=== PATIENT | male | born 1995 | race Caucasian/White ===

== ENCOUNTER 2023-09-07 14:25 | Emergency (ER) | payer BC, SELFPAY ==
[2023-09-07 14:31] VITALS: BP 118/93; PULSE 78; RESP 20; TEMP 36.6; O2SAT 100; BMI 31.2
--- NOTE | 2023-09-07 15:13 | ED.BACK1 ---
HPI - Back Pain/Injury General Chief Complaint: Back Pain/Injury Stated Complaint: BACK INJURY Time Seen by Provider: 09/07/23 15:12 Source: patient and family Mode of arrival: Wheelchair History of Present Illness HPI Narrative: patient's here as his with complaint of back pain. It feels like a spasm/charley horses back. He is currently healthy and has never had problems with his back. 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 Does not have radiculopathy type symptoms. There is no paresis paresthesias tingling or numbness. Is no fever shakes or chills. No urinary or stool problems or symptoms suggestive of cauda equina. He is not known to have ongoing or recurring back problems at all. He does not have a primary family doctor but his 's family doctor is Dr. Montes. Related Data Home Medications Medication Instructions Recorded Confirmed No Known Home Medications 09/07/23 09/07/23 Allergies Allergy/AdvReac Type Severity Reaction Status Date / Time No Known Drug Allergies Allergy Verified 09/07/23 14:38 Exam Narrative Exam Narrative: awake alert laying supine but has clear muscle spasm when he attempts to raise his legs or sit up. He's pleasant oriented ?3. He took some ibuprofen before coming to the hospital. Problem focused examination Examination of reflexes are symmetrical at patella and Achilles. Extensor hallucis longus function is strong bilaterally. He has muscle spasm with straight leg raising test but no radiculopathy type symptoms. Neurovascular examination of the distal limb is normal. Is not having abdominal pain or pain in the renal area. Constitutional Vital Signs, click to edit/add: Last Vital Signs Temp 98 F 09/07/23 14:31 Pulse 78 09/07/23 14:31 Resp 20 09/07/23 14:31 BP 118/93 H 09/07/23 14:31 Pulse Ox 100 09/07/23 14:31 O2 Del Method Room Air 09/07/23 14:31 Course Vital Signs Vital signs: Vital Signs Temperature 98 F 09/07/23 14:31 Pulse Rate 78 09/07/23 14:31 Respiratory Rate 20 09/07/23 14:31 Blood Pressure 118/93 H 09/07/23 14:31 Pulse Oximetry 100 09/07/23 14:31 Oxygen Delivery Method Room Air 09/07/23 14:31 Temperature 98 F 09/07/23 14:31 Pulse Rate 78 09/07/23 14:31 Respiratory Rate 20 09/07/23 14:31 Blood Pressure 118/93 H 09/07/23 14:31 Pulse Oximetry 100 09/07/23 14:31 Oxygen Delivery Method Room Air 09/07/23 14:31 MDM - Back Pain/Injury MDM Narrative Medical decision making narrative: patient appears to have symptoms consistent with lumbosacral strain. Do not believe diagnostic testing images or urine needs to be done at this time. The follow-up with a primary care doctor. We'll recommend muscle relaxants alternating hot compresses for thirty minutes sevveral times a day and NSAIDs Discharge Plan Discharge Chief Complaint: Back Pain/Injury Clinical Impression: Strain of lumbar region Patient Disposition: Home, Self-Care Time of Disposition Decision: 15:27 Prescriptions / Home Meds: No Action No Known Home Medications Additional Instructions: Robaxin/Anaprox/warm compresses thirty minutes only three or four times a day/PCP follow-up Stand Alone Forms: Portal Instructions Referrals: Physician,Non-Staff, MD [Primary Care Provider] - 1 week
== END 2023-09-07 15:44 | disposition home or self-care (01) ==
PROVIDERS: Emergency Provider Emergency Medicine Emergency Medical Services
DX: S39.012A Strain of muscle, fascia and tendon of lower back, initial encounter (principal); X50.9XXA Other and unspecified overexertion or strenuous movements or postures, initial encounter
CPT/HCPCS: 99283

== ENCOUNTER 2024-03-07 15:30 | Outpatient (OUT) | payer BC, SELFPAY | END 2024-03-07 15:31 | disposition home or self-care (01) | LOC: CARD 15:31 | PROVIDERS: PCP Family Medicine; Visit Provider Family Medicine | DX: R00.2 Palpitations (principal) | CPT/HCPCS: 93242 ==

== ENCOUNTER 2024-04-11 10:53 | Outpatient (OUT) | payer BC, SELFPAY ==
--- OUTSIDE RECORDS SUMMARY | 2024-04-08 15:33 | XMS_ITS ---
Patient Summarization (C-CDA 2.1 CCD) Created on: April 08, 2024 Dustin Harden : 1995 Sex: Male Author Organization Sample organization Care Team Providers Care Contact Center Rep Name Role Phone PAY, DR HOLT Admitting Unavailable MISC, DR KILGORE Primary Care Unavailable PAY, DR HOLT Attending Unavailable PAY, DR HOLT Consulting Unavailable MISC, DR KILGORE Primary Care Unavailable MARKER, DR DICKENS Attending Unavailable MARKER, DR DICKENS Consulting Unavailable MARKER, DR DICKENS Admitting Unavailable MD Mark Spaulding Primary Care Provider [phone] DAVID Kelly Emergency Provider [phone] DO Denise Hdz Emergency Provider Jared Kelly Attending Unavailable Jared Kelly Admitting Unavailable Mark Spaulding Primary Care Unavailable Denise Hdz Admitting Unavailable Denise Hdz Attending Unavailable Mark Spaulding Primary Care Unavailable Encounters Encounter Date Encounter Type Care Provider Facility Start: 03-26-2024 End: 03-26-2024 Emergency department patient visit MD Mark Spaulding Work Phone: [facility] Work Phone: Start: 02-20-2024 End: 02-20-2024 Emergency department patient visit MD Mark Spaulding Work Phone: [facility] Work Phone: Start: 10-03-2021 End: 10-03-[address] JONATHON VALERO Facility:[facility] Start: 05-11-2021 End: 05-11-[address] DOCTOR HEALY Facility:[facility] Medications Current Medications Medication Drug Class(es) Dates Sig (Normalized) Sig (Original) citalopram 20 mg oral tablet (1 source) Serotonin Reuptake Inhibitor Start: 03-26-2024 take 20 mg by mouth once daily Citalopram Active 20 MG PO Daily March 26, 2024 12:00am famotidine 40 mg oral tablet (2 sources) Histamine-2 Receptor Antagonist Start: 02-20-2024 take 1 tablet by mouth once daily Famotidine (Pepcid) 40 mg tablet Active 40 MG PO Daily February 20, 2024 12:00am hydrOXYzine pamoate 25 mg oral capsule (2 sources) Antihistamine Start: 02-20-2024 Hydroxyzine Pamoate (Vistaril) 25 mg capsule Active 25 MG PO every 6 to 8 hours February 20, 2024 12:00am Completed/Discontinued Medications Medication Drug Class(es) Dates Sig (Normalized) Sig (Original) Methylprednisolone (2 sources) Corticosteroid Start: 1 End: 4 Methylprednisolone Discontinued MG May 17, 2021 12:00am February 20, 2024 1:56pm sulfamethoxazole 800 mg / trimethoprim 160 mg oral tablet (2 sources) Dihydrofolate Reductase Inhibitor Antibacterial, Sulfonamide Antimicrobial Start: 1 End: 4 take 1 tablet by mouth twice daily Sulfamethoxazole-Trim ethoprim Discontinued 1 TAB PO Twice daily May 17, 2021 12:00am February 20, 2024 1:56pm Payers Date Payer Category Payer Medicaid [id number] 6e 2024 Self-pay [id number] 1995 Unknown [id number] 1995 Unknown [id number] 1959 Unknown [id number] Medicaid [place] HMO [id number] Unknown [id number] Unknown [id number] Plan of Treatment Date Care Activity Detail Author Patient Education [facility] Work Phone: Patient referral [facility] Work Phone: Problems Active Problems Problem Classification Problem Date Documented Da te Episodic/Chronic Esophageal disorders (2 sources) Gastric reflux; Translations: [Gastro-esophageal reflux disease without esophagitis] 02-20-2024 Chronic Nonspecific chest pain (4 sources) Atypical chest pain; Translations: [Other chest pain] Onset: 02-20-2024 02-20-2024 Episodic Other upper respiratory infections (1 source) Acute upper respiratory infection, unspecified; Translations: [ACUTE UP RESPIRATORY INFECTION UNS] Onset: 10-04-2021 Episodic Screening and history of mental health and substance abuse codes (1 source) Personal history of nicotine dependence; Translations: [PERSONAL HISTORY OF NICOTINE DEPEND] Onset: 10-04-2021 Episodic Unclassified (3 sources) COUGH, UNSPECIFIED; Translations: [COUGH, UNSPECIFIED] Onset: 10-04-2021 Unclassified (1 source) CONTACT W/AND (SUSP) EXPOS COVID-19; Translations: [CONTACT W/AND (SUSP) EXPOS COVID-19] Onset: 10-04-2021 Viral infection (2 sources) Verruca vulgaris; Translations: [Viral wart, unspecified] 09-26-2023 Episodic Past or Other Problems Problem Classification Problem Date Documented Date Episodic/Chronic Allergic reactions (1 source) Dermatitis, unspecified; Translations: [DERMATITIS UNSPECIFIED] Onset: 05-13-2021 Episodic Noninfectious gastroenteritis (1 source) Noninfective gastroenteritis and colitis, unspecified; Translations: [NONINFECTIVE GE AND COLITIS UNS] Onset: 05-13-2021 Episodic Other skin disorders (4 sources) Rash and other nonspecific skin eruption; Translations: [RASH OTH NONSPECIFIC SKIN ERUPTION] Onset: 05-11-2021 Episodic Unclassified (1 source) COUGH, UNSPECIFIED; Translations: [COUGH, UNSPECIFIED] Onset: 10-03-2021 Procedures Date Procedure Procedure Detail Performing Clinician Start: 03-26-2024 Plain chest X-ray MD Brown Work Phone: Start: 02-20-2024 Plain chest X-ray MD Brown Work Phone: Results Test Name Value Interpretation Reference Range Facility Activated partial thrombopla stin time (aPTT) in platelet poor plasma by coagulation aOrdered By: Denise Hdz on 03-26-2024 aPTT Coag (PPP) [Time] 28.3 s 25.1-36.5 [facility] Comment on above: A hematocrit value g reater than 55% may lead to inaccurate results in coagulation testing. Patients having hematocrit values >55% require a special collection tube for coagulation studies. Please contact the laboratory at [phone] for redraw instructions. Alanine aminotransferase [En zymatic activity/volume] in Serum or PlasmaOrdered By: Denise Hdz on 03-26-2024 ALT [Catalytic activity/Vol] 24 U/L Normal 7-52 [facility] Comment on above: Performed By: #### L IPASE, TSH3, BMP, PTT, CBC, HS TROP, BNP, CK, HEPATIC, PT #### [facility] [address] Albumin [Mass/volume] in Ser um or Plasma by Bromocresol green (BCG) dye binding methoOrdered By: Denise Hdz on 03-26-2024 Albumin BCG dye [Mass/Vol] 4.8 g/dL 3.5-5.7 [facility] Alkaline phosphatase [Enzyma tic activity/volume] in Serum or PlasmaOrdered By: Denise Hdz on 03-26-2024 ALP [Catalytic activity/Vol] 80 U/L Normal 34-104 [facility] Comment on above: Performed By: #### L IPASE, TSH3, BMP, PTT, CBC, HS TROP, BNP, CK, HEPATIC, PT #### [facility] [address] Aspartate aminotransferase [ Enzymatic activity/volume] in Serum or PlasmaOrdered By: Denise Hdz on 03-26-2024 AST [Catalytic activity/Vol] 23 U/L Normal 13-39 [facility] Comment on above: Performed By: #### L IPASE, TSH3, BMP, PTT, CBC, HS TROP, BNP, CK, HEPATIC, PT #### [facility] [address] [place] [address] [place] Automated basophil %Ordered By: Denise Hdz on 03-26-2024 Basophils/100 WBC (Bld) 0.6 % Normal . [facility] Comment on above: Performed By: #### L IPASE, TSH3, BMP, PTT, CBC, HS TROP, BNP, CK, HEPATIC, PT #### [address] Automated basophil countOrde red By: Denise Hdz on 03-26-2024 Basophils (Bld) [#/Vol] 0.0 10*3/uL Normal 0.0-0.2 [facility] Comment on above: Result Comment: PERF ORMED BY: [place] [address] PATHOLOGIST [employer] NINA KEATING M.D. Performed By: #### L IPASE, TSH3, BMP, PTT, CBC, HS TROP, BNP, CK, HEPATIC, PT #### [address] Automated blood monocyte cou ntOrdered By: Denise Hdz on 03-26-2024 Monocytes (Bld) [#/Vol] 0.6 10*3/uL Normal 0.0-0.8 [facility] Comment on above: Performed By: #### L IPASE, TSH3, BMP, PTT, CBC, HS TROP, BNP, CK, HEPATIC, PT #### [address] Automated eosinophil %Ordere d By: Denise Hdz on 03-26-2024 Eosinophils/100 WBC (Bld) 1.9 % Normal . [facility] Comment on above: Performed By: #### L IPASE, TSH3, BMP, PTT, CBC, HS TROP, BNP, CK, HEPATIC, PT #### [address] Automated eosinophil countOr dered By: Denise Hdz on 03-26-2024 Eosinophils (Bld) [#/Vol] 0.1 10*3/uL Normal 0.0-0.45 [facility] Comment on above: Performed By: #### L IPASE, TSH3, BMP, PTT, CBC, HS TROP, BNP, CK, HEPATIC, PT #### [facility] [address] Automated monocyte %Ordered By: Denise Hdz on 03-26-2024 Monocytes/100 WBC (Bld) 8.9 % Normal . [facility] Comment on above: Performed By: #### L IPASE, TSH3, BMP, PTT, CBC, HS TROP, BNP, CK, HEPATIC, PT #### [facility] [address] Automated neutrophil %Ordere d By: Denise Hdz on 03-26-2024 Neutrophils/100 WBC (Bld) 65.5 % Normal . [facility] Comment on above: Performed By: #### L IPASE, TSH3, BMP, PTT, CBC, HS TROP, BNP, CK, HEPATIC, PT #### [facility] [address] Bilirubin.total [Mass/volume ] in Serum or PlasmaOrdered By: Denise Hdz on 03-26-2024 Bilirubin [Mass/Vol] 0.8 mg/dL Normal 0.3-1.0 [facility] Comment on above: Performed By: #### L IPASE, TSH3, BMP, PTT, CBC, HS TROP, BNP, CK, HEPATIC, PT #### [facility] [address] Calcium [Mass/volume] in Ser um or PlasmaOrdered By: Denise Hdz on 03-26-2024 Calcium [Mass/Vol] 10.1 mg/dL Normal 8.6-10.3 [facility] Comment on above: Performed By: #### L IPASE, TSH3, BMP, PTT, CBC, HS TROP, BNP, CK, HEPATIC, PT #### [facility] [address] Carbon dioxide, total [Moles /volume] in Serum or PlasmaOrdered By: Denise Hdz on 03-26-2024 CO2 [Moles/Vol] 24.0 mmol/L Normal 21.0-31.0 [facility] Comment on above: Performed By: #### L IPASE, TSH3, BMP, PTT, CBC, HS TROP, BNP, CK, HEPATIC, PT #### [address] Chloride [Moles/volume] in S germaine or PlasmaOrdered By: Denise Hdz on 03-26-2024 Chloride [Moles/Vol] 104 mmol/L Normal 98-107 [facility] Comment on above: Performed By: #### L IPASE, TSH3, BMP, PTT, CBC, HS TROP, BNP, CK, HEPATIC, PT #### [address] Complete Blood Count Auto Di ffon 03-26-2024 Mean Corpuscular HGB Conc 34.8 g/dL Normal 32.5-35.6 [facility] Comment on above: Performed By: #### L IPASE, TSH3, BMP, PTT, CBC, HS TROP, BNP, CK, HEPATIC, PT #### [address] Monocytes/100 WBC (Bld) 16.49 % Normal 0.00-20.00 [facility] Comment on above: Performed By: #### L IPASE, TSH3, BMP, PTT, CBC, HS TROP, BNP, CK, HEPATIC, PT #### [address] NRBC% 0.2 /100{WBC} Normal 0-0.5 [facility] Comment on above: Performed By: #### L IPASE, TSH3, BMP, PTT, CBC, HS TROP, BNP, CK, HEPATIC, PT #### [address] Comprehensive Metabolic Pane annette 03-26-2024 Albumin [Mass/Vol] 4.8 g/dL Normal 3.5-5.7 [facility] Comment on above: Performed By: #### L IPASE, TSH3, BMP, PTT, CBC, HS TROP, BNP, CK, HEPATIC, PT #### [address] Creatinine Clr Calc Pharmacy 158.77 Normal [facility] Comment on above: Performed By: #### L IPASE, TSH3, BMP, PTT, CBC, HS TROP, BNP, CK, HEPATIC, PT #### [facility] [address] [place] [address] [place] GFR/1.73 sq M.predicted MDRD (S/P/Bld) [Vol rate/Area] mL/min/{1.73_m2} Normal [facility] Comment on above: Performed By: #### L IPASE, TSH3, BMP, PTT, CBC, HS TROP, BNP, CK, HEPATIC, PT #### [facility] [address] Creatine kinase [Enzymatic a ctivity/volume] in Serum or PlasmaOrdered By: Denise Hdz on 03-26-2024 CK [Catalytic activity/Vol] 122 U/L Normal 30-223 [facility] Comment on above: Performed By: #### L IPASE, TSH3, BMP, PTT, CBC, HS TROP, BNP, CK, HEPATIC, PT #### [address] Creatinine [Mass/volume] in Serum or PlasmaOrdered By: Denise Hdz on 03-26-2024 Creatinine [Mass/Vol] 0.77 mg/dL Normal 0.70-1.30 [facility] Comment on above: Performed By: #### L IPASE, TSH3, BMP, PTT, CBC, HS TROP, BNP, CK, HEPATIC, PT #### [facility] [address] [place] [address] ECG 12 lead ECGon 03-26-2024 ECG 12 lead ECG [facility] [place] [address] [place] [address] Electrocardiograph Report Signed Patient: Dustin Harden MR#: [id number] : 1995 Acct:[id number] Age/Sex: 29 / M ADM Date: 03/26/24 Loc: ER Room: Type: [facility] ER Attending Dr: Ordering Provider: Denise Hdz DO Date of Service: 03/26/2410/07/811 ECG/ECG 12 lead ECG: Arrhythmia/Palpitations Copies to: Test Reason : Blood Pressure : 138/093 mmHG Vent. Rate : 099 BPM Atrial Rate : 099 BPM P-R Int : 138 ms QRS Dur : 090 ms QT Int : 334 ms P-R-T Axes : 060 075 025 degrees QTc Int : 428 ms Normal sinus rhythm Normal ECG When compared with ECG of 20-FEB-2024 14:00, No significant change was found Confirmed by DENISE HDZ DO ([id number]) on 03/26/2024 2:37:02 PM Referred By: Electronically Signed By:DENISE HDZ DO Transcribed By: MUS Signed By Denise Hdz DO 1437 Normal [facility] Erythrocyte distribution wid th [Ratio] by Automated countOrdered By: Denise Hdz on 03-26-2024 Erythrocyte distribution width (RBC) [Ratio] 13.4 % Normal 12.0-14.8 [facility] Comment on above: Performed By: #### L IPASE, TSH3, BMP, PTT, CBC, HS TROP, BNP, CK, HEPATIC, PT #### [facility] [address] [place] [id number] [place] Erythrocytes [#/volume] in B lood by Automated countOrdered By: Denise Hdz on 03-26-2024 RBC (Bld) [#/Vol] 5.28 10*6/uL Normal 3.90-5.60 [facility] Comment on above: Performed By: #### L IPASE, TSH3, BMP, PTT, CBC, HS TROP, BNP, CK, HEPATIC, PT #### [facility] [address] [place] [address] [place] Glucose [Mass/volume] in Ser um or PlasmaOrdered By: Denise Hdz on 03-26-2024 Glucose [Mass/Vol] 98 mg/dL Normal 70-100 [facility] Comment on above: ADA recommended refe rence rangeRandom Glucose Reference Range is dependent on time and content of last meal. Glucose of more than 200 mg/dL in a nonstressed, ambulatory subject supports the diagnosis of Diabetes Mellitus. Result Comment: [place] om Glucose Reference Range is dependent on time and content of last meal. Glucose of more than 200 mg/dL in a nonstressed, ambulatory subject supports the diagnosis of Diabetes Mellitus. ADA recommended reference range Performed By: #### L IPASE, TSH3, BMP, PTT, CBC, HS TROP, BNP, CK, HEPATIC, PT #### [facility] [address] Hematocrit [Volume Fraction] of Blood by Automated countOrdered By: Denise Hdz on 03-26-2024 Hematocrit (Bld) [Volume fraction] 46.2 % Normal 38.8-50.0 [facility] Comment on above: Performed By: #### L IPASE, TSH3, BMP, PTT, CBC, HS TROP, BNP, CK, HEPATIC, PT #### [address] Hemoglobin [Mass/volume] in BloodOrdered By: Denise Hdz on 03-26-2024 Hemoglobin (Bld) [Mass/Vol] 16.1 g/dL Normal 13.0-17.0 [facility] Comment on above: Performed By: #### L IPASE, TSH3, BMP, PTT, CBC, HS TROP, BNP, CK, HEPATIC, PT #### [facility] [address] [place] [address] INR in Platelet poor plasma by Coagulation assayOrdered By: Denise Hdz on 03-26-2024 INR Coag (PPP) [Relative time] 1.0 {INR} Normal [facility] Comment on above: INR Therapeutic Rang e A) Pre- and Peroperative OAT started two weeks before surgery. NOT HIP SURGERY: 1.5 - 2.5 HIP SURGERY: 2 - 3B) Primary and secondary prevention of venous THROMBOSIS: 2 - 3C) Active venous thrombosis, pulmonary embolismand prevention of recurrent venous thrombosis: 2 - 3D) Prevention of arterial thromboembolismincluding patients with mechanical heart valves: 3 - 4.5 Result Comment: INR Therapeutic Range A) Pre- and Peroperative OAT started two weeks before surgery. NOT HIP SURGERY: 1.5 - 2.5 HIP SURGERY: 2 - 3 B) Primary and secondary prevention of venous THROMBOSIS: 2 - 3 C) Active venous thrombosis, pulmonary embolism and prevention of recurrent venous thrombosis: 2 - 3 D) Prevention of arterial thromboembolism including patients with mechanical heart valves: 3 - 4.5 Performed By: #### L IPASE, TSH3, BMP, PTT, CBC, HS TROP, BNP, CK, HEPATIC, PT #### [facility] [address] [place] [address] Leukocytes [#/volume] correc modesta for nucleated erythrocytes in Blood by Automated counOrdered By: Denise Hdz on 03-26-2024 WBC corrected for nucl RBC Auto (Bld) [#/Vol] 6.2 10*3/uL 4.1-10.5 [facility] Leukocytes [#/volume] in Blo od by Automated countOrdered By: Denise Hdz on 03-26-2024 WBC (Bld) [#/Vol] 6.2 10*3/uL Normal 4.1-10.5 [facility] Comment on above: Performed By: #### L IPASE, TSH3, BMP, PTT, CBC, HS TROP, BNP, CK, HEPATIC, PT #### [facility] [address] [place] [address] Lymphocytes [#/volume] in Bl ood by Automated countOrdered By: Denise Hdz on 03-26-2024 Lymphocytes (Bld) [#/Vol] 1.4 10*3/uL Normal 1.00-4.8 [facility] Comment on above: Performed By: #### L IPASE, TSH3, BMP, PTT, CBC, HS TROP, BNP, CK, HEPATIC, PT #### [facility] [address] [place] [address] [place] Lymphocytes/100 leukocytes i n Blood by Automated countOrdered By: Denise Hdz on 03-26-2024 Lymphocytes/100 WBC (Bld) 23.1 % Normal . [facility] Comment on above: Performed By: #### L IPASE, TSH3, BMP, PTT, CBC, HS TROP, BNP, CK, HEPATIC, PT #### [address] MCH [Entitic mass] by Automa modesta countOrdered By: Denise Hdz on 03-26-2024 MCH (RBC) [Entitic mass] 30.5 pg Normal 27.5-35.2 [facility] Comment on above: Performed By: #### L IPASE, TSH3, BMP, PTT, CBC, HS TROP, BNP, CK, HEPATIC, PT #### [facility] [address] MCHC Auto (RBC) [Mass/Vol]Or dered By: Denise Hdz on 03-26-2024 MCHC (RBC) [Mass/Vol] 34.8 g/dL 32.5-35.6 [facility] MCV [Entitic volume] by Auto mated countOrdered By: Denise Hdz on 03-26-2024 MCV (RBC) [Entitic vol] 87.6 fL Normal 83.5-101 [facility] Comment on above: Performed By: #### L IPASE, TSH3, BMP, PTT, CBC, HS TROP, BNP, CK, HEPATIC, PT #### [facility] [address] [place] [address] Magnesium [Mass/volume] in S germaine or PlasmaOrdered By: Denise Hdz on 03-26-2024 Magnesium [Mass/Vol] 1.8 mg/dL Low 1.9-2.7 [facility] Comment on above: Result Comment: PERF ORMED BY: [place] [address] PATHOLOGIST [employer] NINA KEATING M.D. Performed By: #### L IPASE, TSH3, BMP, PTT, CBC, HS TROP, BNP, CK, HEPATIC, PT #### [facility] [address] [place] [address] Monocyte distribution width [Entitic volume] in Blood by AutomatedOrdered By: Denise Hdz on 03-26-2024 Monocyte distribution width Auto (Bld) [Entitic vol] 16.49 % 0.00-20.00 [facility] Neutrophils [#/volume] in Bl ood by Automated countOrdered By: Denise Hdz on 03-26-2024 Neutrophils (Bld) [#/Vol] 4.1 10*3/uL Normal 1.8-7.7 [facility] Comment on above: Performed By: #### L IPASE, TSH3, BMP, PTT, CBC, HS TROP, BNP, CK, HEPATIC, PT #### [facility] [address] [place] [address] No Panel InformationOrdered By: Denise Hdz on 03-26-2024 Estimated GFR (CKD-EPI) > 60.0 mL/Min [facility] Creatinine Clearance (Chem 158.77 [facility] Nucleated erythrocytes [Pres ence] in Blood by Automated countOrdered By: Denise Hdz on 03-26-2024 Nucleated RBC Auto Ql (Bld) 0.2 /100{WBC} 0-0.5 [facility] Partial Thromboplastin Timeo n 03-26-2024 aPTT Coag (Bld) [Time] 28.3 s Normal 25.1-36.5 [facility] Comment on above: Result Comment: A he matocrit value greater than 55% may lead to inaccurate results in coagulation testing. Patients having hematocrit values >55% require a special collection tube for coagulation studies. Please contact the laboratory at [phone] for redraw instructions. PERFORMED BY: [place] [address] PATHOLOGIST [employer] NINA KEATING M.D. Performed By: #### L IPASE, TSH3, BMP, PTT, CBC, HS TROP, BNP, CK, HEPATIC, PT #### [address] Platelet mean volume [Entiti c volume] in Blood by Automated countOrdered By: Denise Hdz on 03-26-2024 Platelet mean volume (Bld) [Entitic vol] 9.2 fL Normal 6.6-10.1 [facility] Comment on above: Performed By: #### L IPASE, TSH3, BMP, PTT, CBC, HS TROP, BNP, CK, HEPATIC, PT #### [address] Platelets [#/volume] in Bloo d by Automated countOrdered By: Denise Hdz on 03-26-2024 Platelets (Bld) [#/Vol] 210 10*3/uL Normal 150-450 [facility] Comment on above: Performed By: #### L IPASE, TSH3, BMP, PTT, CBC, HS TROP, BNP, CK, HEPATIC, PT #### [facility] [address] Potassium [Moles/volume] in Serum or PlasmaOrdered By: Denise Hdz on 03-26-2024 Potassium [Moles/Vol] 3.9 mmol/L Normal 3.5-5.1 [facility] Comment on above: Performed By: #### L IPASE, TSH3, BMP, PTT, CBC, HS TROP, BNP, CK, HEPATIC, PT #### [facility] [address] Protein [Mass/volume] in Ser um or PlasmaOrdered By: Denise Hdz on 03-26-2024 Protein [Mass/Vol] 8.0 g/dL Normal 6.4-8.9 [facility] Comment on above: Performed By: #### L IPASE, TSH3, BMP, PTT, CBC, HS TROP, BNP, CK, HEPATIC, PT #### [facility] [address] Prothrombin time (PT)Ordered By: Denise Hzd on 03-26-2024 PT Coag (PPP) [Time] 11.1 s Normal 9.0-12.9 [facility] Comment on above: A hematocrit value g reater than 55% may lead to inaccurate results in coagulation testing. Patients having hematocrit values >55% require a special collection tube for coagulation studies. Please contact the laboratory at [phone] for redraw instructions. Result Comment: A he matocrit value greater than 55% may lead to inaccurate results in coagulation testing. Patients having hematocrit values >55% require a special collection tube for coagulation studies. Please contact the laboratory at [phone] for redraw instructions. Performed By: #### L IPASE, TSH3, BMP, PTT, CBC, HS TROP, BNP, CK, HEPATIC, PT #### [facility] [address] Serum globulin measurement b y calculation (mass/volume)Ordered By: Denise Hdz on 03-26-2024 Globulin (S) [Mass/Vol] 3.2 g/dL Normal [facility] Comment on above: Performed By: #### L IPASE, TSH3, BMP, PTT, CBC, HS TROP, BNP, CK, HEPATIC, PT #### [facility] [address] [place] [address] Serum or plasma albumin/glob ulin mass ratioOrdered By: Denise Hdz on 03-26-2024 Albumin/Globulin [Mass ratio] 1.5 {ratio} Normal [facility] Comment on above: Performed By: #### L IPASE, TSH3, BMP, PTT, CBC, HS TROP, BNP, CK, HEPATIC, PT #### [facility] [address] [place] [address] Serum or plasma anion gap de terminationOrdered By: Denise Hdz on 03-26-2024 Anion gap [Moles/Vol] 13.9 mmol/L Normal 6.0-15.0 [facility] Comment on above: Performed By: #### L IPASE, TSH3, BMP, PTT, CBC, HS TROP, BNP, CK, HEPATIC, PT #### [facility] [address] [place] [address] Sodium [Moles/volume] in Ser um or PlasmaOrdered By: Denise Hdz on 03-26-2024 Sodium [Moles/Vol] 138 mmol/L Normal 136-145 [facility] Comment on above: Performed By: #### L IPASE, TSH3, BMP, PTT, CBC, HS TROP, BNP, CK, HEPATIC, PT #### [facility] [address] [place] [address] Troponin I High Sensitivityo n 03-26-2024 Troponin I High Sensitivity < 2.3 Normal 0.0-20.0 [facility] Comment on above: Result Comment: PERF ORMED BY: [place] [address] PATHOLOGIST [employer] NINA KEATING M.D. Performed By: #### L IPASE, TSH3, BMP, PTT, CBC, HS TROP, BNP, CK, HEPATIC, PT #### [facility] [facility] [address] [place] [id number] [facility] Troponin I.cardiac [Mass/vol ume] in Serum or Plasma by Detection limit <= 0.01 ng/Ordered By: Denise Hdz on 03-26-2024 Troponin I.cardiac DL <= 0.01 ng/mL [Mass/Vol] < 2.3 pg/mL 0.0-20.0 [facility] Urea nitrogen [Mass/volume] in Serum or PlasmaOrdered By: Denise Hdz on 03-26-2024 Urea nitrogen [Mass/Vol] 15 mg/dL Normal 7-25 [facility] Comment on above: Performed By: #### L IPASE, TSH3, BMP, PTT, CBC, HS TROP, BNP, CK, HEPATIC, PT #### [facility] [address] [id number] [facility] XR chest 1V portableon 03-26 XR chest 1V portable [facility] [place] [address] [place] [address] XRay Report Signed Patient: Dustin Harden MR#: [id number] : 1995 Acct:[id number] Age/Sex: 29 / M ADM Date: 03/26/24 Loc: ER Room: Type: [facility] ER Attending Dr: Copies to: Denise Hdz DO Ordering Provider: Denise Hdz DO Date of Service: 03/26/24 XR/XR chest 1V portable: Arrhythmia/Palpitations SINGLE VIEW CHEST CLINICAL HISTORY: Arrhythmia palpitations congestion COMPARISON: Chest 02/20/2024 FINDINGS: Heart normal in size. Lungs are clear. No free air. XR/XR chest 1V portable IMPRESSION: NO ACUTE FINDINGS Impression dictated by: Gallo Urban Jr., D.O.03/26/2024 8:53 AM Dictation Location: [place] [address] Transcribed By: [facility] 03/26/24 0853 Dictated By: Gallo Urban Jr, DO 03/26/24 0847 Signed By: 03/26/24 0853 Normal [facility] Activated partial thrombopla stin time (aPTT) in platelet poor plasma by coagulation aOrdered By: Manuel Dickens on 02-20-2024 aPTT Coag (PPP) [Time] 30.0 s 25.1-36.5 [facility] Comment on above: A hematocrit value g reater than 55% may lead to inaccurate results in coagulation testing. Patients having hematocrit values >55% require a special collection tube for coagulation studies. Please contact the laboratory at [phone] for redraw instructions. Alanine aminotransferase [En zymatic activity/volume] in Serum or PlasmaOrdered By: Manuel Dickens on 02-20-2024 ALT [Catalytic activity/Vol] 36 U/L Normal 7-52 [facility] Comment on above: Performed By: #### L IPASE, TSH3, BMP, PTT, CBC, HS TROP, BNP, CK, HEPATIC, PT #### [facility] [address] Albumin [Mass/volume] in Ser um or Plasma by Bromocresol green (BCG) dye binding methoOrdered By: Manuel Dickens on 02-20-2024 Albumin BCG dye [Mass/Vol] 5.0 g/dL 3.5-5.7 [facility] Alkaline phosphatase [Enzyma tic activity/volume] in Serum or PlasmaOrdered By: Manuel Dickens on 02-20-2024 ALP [Catalytic activity/Vol] 76 U/L Normal 34-104 [facility] Comment on above: Performed By: #### L IPASE, TSH3, BMP, PTT, CBC, HS TROP, BNP, CK, HEPATIC, PT #### [facility] [address] Aspartate aminotransferase [ Enzymatic activity/volume] in Serum or PlasmaOrdered By: Manuel Dickens on 02-20-2024 AST [Catalytic activity/Vol] 26 U/L Normal 13-39 [facility] Comment on above: Performed By: #### L IPASE, TSH3, BMP, PTT, CBC, HS TROP, BNP, CK, HEPATIC, PT #### [facility] [address] [place] [address] Automated basophil %Ordered By: Manuel Dickens on 02-20-2024 Basophils/100 WBC (Bld) 0.5 % Normal . [facility] Comment on above: Performed By: #### L IPASE, TSH3, BMP, PTT, CBC, HS TROP, BNP, CK, HEPATIC, PT #### [facility] [address] Automated basophil countOrde red By: Manuel Dickens on 02-20-2024 Basophils (Bld) [#/Vol] 0.1 10*3/uL Normal 0.0-0.2 [facility] Comment on above: Result Comment: PERF ORMED BY: [place] [address] PATHOLOGIST [employer] NINA KEATING M.D. Performed By: #### L IPASE, TSH3, BMP, PTT, CBC, HS TROP, BNP, CK, HEPATIC, PT #### [address] Automated blood monocyte cou ntOrdered By: Manuel Dickens on 02-20-2024 Monocytes (Bld) [#/Vol] 0.8 10*3/uL Normal 0.0-0.8 [facility] Comment on above: Performed By: #### L IPASE, TSH3, BMP, PTT, CBC, HS TROP, BNP, CK, HEPATIC, PT #### [address] Automated eosinophil %Ordere d By: Manuel Dickens on 02-20-2024 Eosinophils/100 WBC (Bld) 0.6 % Normal . [facility] Comment on above: Performed By: #### L IPASE, TSH3, BMP, PTT, CBC, HS TROP, BNP, CK, HEPATIC, PT #### [facility] [address] [place] [address] Automated eosinophil countOr dered By: Manuel Dickens on 02-20-2024 Eosinophils (Bld) [#/Vol] 0.1 10*3/uL Normal 0.0-0.45 [facility] Comment on above: Performed By: #### L IPASE, TSH3, BMP, PTT, CBC, HS TROP, BNP, CK, HEPATIC, PT #### [facility] [address] Automated monocyte %Ordered By: Manuel Dickens on 02-20-2024 Monocytes/100 WBC (Bld) 7.3 % Normal . [facility] Comment on above: Performed By: #### L IPASE, TSH3, BMP, PTT, CBC, HS TROP, BNP, CK, HEPATIC, PT #### [address] Automated neutrophil %Ordere d By: Manuel Dickens on 02-20-2024 Neutrophils/100 WBC (Bld) 79.8 % Normal . [facility] Comment on above: Performed By: #### L IPASE, TSH3, BMP, PTT, CBC, HS TROP, BNP, CK, HEPATIC, PT #### [address] BNP ser/plasOrdered By: Manuel Dickens on 02-20-2024 Natriuretic peptide B (Bld) [Mass/Vol] 7.0 pg/mL Normal 5-100 [facility] Comment on above: Result Comment: PERF ORMED BY: [place] [address] PATHOLOGIST [employer] NINA KEATING M.D. Performed By: #### L IPASE, TSH3, BMP, PTT, CBC, HS TROP, BNP, CK, HEPATIC, PT #### [address] Basic Metabolic Panelon Creatinine Clr Calc Pharmacy 137.62 Normal [facility] Comment on above: Performed By: #### L IPASE, TSH3, BMP, PTT, CBC, HS TROP, BNP, CK, HEPATIC, PT #### [address] GFR/1.73 sq M.predicted MDRD (S/P/Bld) [Vol rate/Area] mL/min/{1.73_m2} Normal [facility] Comment on above: Performed By: #### L IPASE, TSH3, BMP, PTT, CBC, HS TROP, BNP, CK, HEPATIC, PT #### [facility] [address] Bilirubin.direct [Mass/volum e] in Serum or PlasmaOrdered By: Manuel Dickens on 02-20-2024 Bilirubin.direct [Mass/Vol] 0.10 mg/dL 0.03-0.18 [facility] Bilirubin.total [Mass/volume ] in Serum or PlasmaOrdered By: Manuel Dickens on 02-20-2024 Bilirubin [Mass/Vol] 0.6 mg/dL Normal 0.3-1.0 [facility] Comment on above: Performed By: #### L IPASE, TSH3, BMP, PTT, CBC, HS TROP, BNP, CK, HEPATIC, PT #### [facility] [address] Calcium [Mass/volume] in Ser um or PlasmaOrdered By: Manuel Dicknes on 02-20-2024 Calcium [Mass/Vol] 10.1 mg/dL Normal 8.6-10.3 [facility] Comment on above: Performed By: #### L IPASE, TSH3, BMP, PTT, CBC, HS TROP, BNP, CK, HEPATIC, PT #### [facility] [address] Carbon dioxide, total [Moles /volume] in Serum or PlasmaOrdered By: Manuel Dickens on 02-20-2024 CO2 [Moles/Vol] 25.5 mmol/L Normal 21.0-31.0 [facility] Comment on above: Performed By: #### L IPASE, TSH3, BMP, PTT, CBC, HS TROP, BNP, CK, HEPATIC, PT #### [facility] [address] [place] [address] [place] Chloride [Moles/volume] in S germaine or PlasmaOrdered By: Manuel Dickens on 02-20-2024 Chloride [Moles/Vol] 105 mmol/L Normal 98-107 [facility] Comment on above: Performed By: #### L IPASE, TSH3, BMP, PTT, CBC, HS TROP, BNP, CK, HEPATIC, PT #### [facility] [address] Complete Blood Count Auto Di ffon 02-20-2024 Mean Corpuscular HGB Conc 34.4 g/dL Normal 32.5-35.6 [facility] Comment on above: Performed By: #### L IPASE, TSH3, BMP, PTT, CBC, HS TROP, BNP, CK, HEPATIC, PT #### [facility] [address] [place] [address] [place] Monocytes/100 WBC (Bld) 16.28 % Normal 0.00-20.00 [facility] Comment on above: Performed By: #### L IPASE, TSH3, BMP, PTT, CBC, HS TROP, BNP, CK, HEPATIC, PT #### [facility] [address] NRBC% 0.1 /100{WBC} Normal 0-0.5 [facility] Comment on above: Performed By: #### L IPASE, TSH3, BMP, PTT, CBC, HS TROP, BNP, CK, HEPATIC, PT #### [address] Creatine kinase [Enzymatic a ctivity/volume] in Serum or PlasmaOrdered By: Manuel Dickens on 02-20-2024 CK [Catalytic activity/Vol] 100 U/L Normal 30-223 [facility] Comment on above: Performed By: #### L IPASE, TSH3, BMP, PTT, CBC, HS TROP, BNP, CK, HEPATIC, PT #### [address] Creatinine [Mass/volume] in Serum or PlasmaOrdered By: Manuel Dickens on 02-20-2024 Creatinine [Mass/Vol] 0.90 mg/dL Normal 0.70-1.30 [facility] Comment on above: Performed By: #### L IPASE, TSH3, BMP, PTT, CBC, HS TROP, BNP, CK, HEPATIC, PT #### [address] ECG 12 lead ECGon 02-20-2024 ECG 12 lead ECG [facility] [place] [address] [place] [address] Electrocardiograph Report Signed Patient: Dustin Harden MR#: [id number] : 1995 Acct:[id number] Age/Sex: 29 / M ADM Date: 02/20/24 Loc: ER Room: Type: PRE ER Attending Dr: Ordering Provider: Jared Kelly PA-C Date of Service: 02/20/2406/07/1357 ECG/ECG 12 lead ECG: Chest Pain Copies to: Test Reason : Blood Pressure : / mmHG Vent. Rate : 110 BPM Atrial Rate : 110 BPM P-R Int : 140 ms QRS Dur : 090 ms QT Int : 340 ms P-R-T Axes : 064 080 023 degrees QTc Int : 460 ms Sinus tachycardia Cannot rule out Anterior infarct , age undetermined T wave abnormality, consider inferior ischemia Abnormal ECG No previous ECGs available Confirmed by MANUEL DICKENS DO ([id number]) on 02/20/2024 3:42:48 PM Referred By: Electronically Signed By:MANUEL DICKENS DO Transcribed By: MUS Signed By Manuel Dickens DO 02/19 1542 Normal [facility] Erythrocyte distribution wid th [Ratio] by Automated countOrdered By: Manuel Dickens on 02-20-2024 Erythrocyte distribution width (RBC) [Ratio] 13.2 % Normal 12.0-14.8 [facility] Comment on above: Performed By: #### L IPASE, TSH3, BMP, PTT, CBC, HS TROP, BNP, CK, HEPATIC, PT #### [facility] [address] [place] [address] [place] Erythrocytes [#/volume] in B lood by Automated countOrdered By: Manuel Dickens on 02-20-2024 RBC (Bld) [#/Vol] 5.47 10*6/uL Normal 3.90-5.60 [facility] Comment on above: Performed By: #### L IPASE, TSH3, BMP, PTT, CBC, HS TROP, BNP, CK, HEPATIC, PT #### [facility] [address] [place] [id number] [facility] Glucose [Mass/volume] in Ser um or PlasmaOrdered By: Manuel Dickens on 02-20-2024 Glucose [Mass/Vol] 96 mg/dL Normal 70-100 [facility] Comment on above: ADA recommended refe rence rangeRandom Glucose Reference Range is dependent on time and content of last meal. Glucose of more than 200 mg/dL in a nonstressed, ambulatory subject supports the diagnosis of Diabetes Mellitus. Result Comment: [place] om Glucose Reference Range is dependent on time and content of last meal. Glucose of more than 200 mg/dL in a nonstressed, ambulatory subject supports the diagnosis of Diabetes Mellitus. ADA recommended reference range Performed By: #### L IPASE, TSH3, BMP, PTT, CBC, HS TROP, BNP, CK, HEPATIC, PT #### [address] Hematocrit [Volume Fraction] of Blood by Automated countOrdered By: Manuel Dickens on 02-20-2024 Hematocrit (Bld) [Volume fraction] 47.6 % Normal 38.8-50.0 [facility] Comment on above: Performed By: #### L IPASE, TSH3, BMP, PTT, CBC, HS TROP, BNP, CK, HEPATIC, PT #### [facility] [address] Hemoglobin [Mass/volume] in BloodOrdered By: Manuel Dickens on 02-20-2024 Hemoglobin (Bld) [Mass/Vol] 16.4 g/dL Normal 13.0-17.0 [facility] Comment on above: Performed By: #### L IPASE, TSH3, BMP, PTT, CBC, HS TROP, BNP, CK, HEPATIC, PT #### [facility] [address] Hepatic Panelon 02-20-2024 Albumin [Mass/Vol] 5.0 g/dL Normal 3.5-5.7 [facility] Comment on above: Performed By: #### L IPASE, TSH3, BMP, PTT, CBC, HS TROP, BNP, CK, HEPATIC, PT #### [address] Bilirubin,Indirect 0.5 mg/dL Normal [facility] Comment on above: Performed By: #### L IPASE, TSH3, BMP, PTT, CBC, HS TROP, BNP, CK, HEPATIC, PT #### [facility] [address] Bilirubin.indirect [Mass/Vol] 0.10 mg/dL Normal 0.03-0.18 [facility] Comment on above: Performed By: #### L IPASE, TSH3, BMP, PTT, CBC, HS TROP, BNP, CK, HEPATIC, PT #### [facility] [address] INR in Platelet poor plasma by Coagulation assayOrdered By: Manuel Dickens on 02-20-2024 INR Coag (PPP) [Relative time] 0.9 {INR} Normal [facility] Comment on above: INR Therapeutic Rang e A) Pre- and Peroperative OAT started two weeks before surgery. NOT HIP SURGERY: 1.5 - 2.5 HIP SURGERY: 2 - 3B) Primary and secondary prevention of venous THROMBOSIS: 2 - 3C) Active venous thrombosis, pulmonary embolismand prevention of recurrent venous thrombosis: 2 - 3D) Prevention of arterial thromboembolismincluding patients with mechanical heart valves: 3 - 4.5 Result Comment: INR Therapeutic Range A) Pre- and Peroperative OAT started two weeks before surgery. NOT HIP SURGERY: 1.5 - 2.5 HIP SURGERY: 2 - 3 B) Primary and secondary prevention of venous THROMBOSIS: 2 - 3 C) Active venous thrombosis, pulmonary embolism and prevention of recurrent venous thrombosis: 2 - 3 D) Prevention of arterial thromboembolism including patients with mechanical heart valves: 3 - 4.5 Performed By: #### L IPASE, TSH3, BMP, PTT, CBC, HS TROP, BNP, CK, HEPATIC, PT #### [facility] [address] Leukocytes [#/volume] correc [place] for nucleated erythrocytes in Blood by Automated counOrdered By: Manuel Dickens on 02-20-2024 WBC corrected for nucl RBC Auto (Bld) [#/Vol] 10.4 10*3/uL 4.1-10.5 [facility] Leukocytes [#/volume] in Blo od by Automated countOrdered By: Manuel Dickens on 02-20-2024 WBC (Bld) [#/Vol] 10.4 10*3/uL Normal 4.1-10.5 [facility] Comment on above: Performed By: #### L IPASE, TSH3, BMP, PTT, CBC, HS TROP, BNP, CK, HEPATIC, PT #### [facility] [address] Lipase [Enzymatic activity/v olume] in Serum or PlasmaOrdered By: Manuel Dickens on 02-20-2024 Lipase [Catalytic activity/Vol] 6.0 U/L Low 11.0-82.0 [facility] Comment on above: Performed By: #### L IPASE, TSH3, BMP, PTT, CBC, HS TROP, BNP, CK, HEPATIC, PT #### [facility] [address] [place] [address] Lymphocytes [#/volume] in Bl ood by Automated countOrdered By: Manuel Dickens on 02-20-2024 Lymphocytes (Bld) [#/Vol] 1.2 10*3/uL Normal 1.00-4.8 [facility] Comment on above: Performed By: #### L IPASE, TSH3, BMP, PTT, CBC, HS TROP, BNP, CK, HEPATIC, PT #### [address] Lymphocytes/100 leukocytes i n Blood by Automated countOrdered By: Manuel Dickens on 02-20-2024 Lymphocytes/100 WBC (Bld) 11.8 % Normal . [facility] Comment on above: Performed By: #### L IPASE, TSH3, BMP, PTT, CBC, HS TROP, BNP, CK, HEPATIC, PT #### [address] MCH [Entitic mass] by Automa [place] countOrdered By: Manuel Dickens on 02-20-2024 MCH (RBC) [Entitic mass] 29.9 pg Normal 27.5-35.2 [facility] Comment on above: Performed By: #### L IPASE, TSH3, BMP, PTT, CBC, HS TROP, BNP, CK, HEPATIC, PT #### [address] MCHC Auto (RBC) [Mass/Vol]Or dered By: Manuel Dickens on 02-20-2024 MCHC (RBC) [Mass/Vol] 34.4 g/dL 32.5-35.6 [facility] MCV [Entitic volume] by Auto mated countOrdered By: Manuel Dickens on 02-20-2024 MCV (RBC) [Entitic vol] 87.0 fL Normal 83.5-101 [facility] Comment on above: Performed By: #### L IPASE, TSH3, BMP, PTT, CBC, HS TROP, BNP, CK, HEPATIC, PT #### [facility] [address] Monocyte distribution width [Entitic volume] in Blood by AutomatedOrdered By: Manuel Dickens on 02-20-2024 Monocyte distribution width Auto (Bld) [Entitic vol] 16.28 % 0.00-20.00 [facility] Neutrophils [#/volume] in Bl ood by Automated countOrdered By: Manuel Dickens on 02-20-2024 Neutrophils (Bld) [#/Vol] 8.3 10*3/uL High 1.8-7.7 [facility] Comment on above: Performed By: #### L IPASE, TSH3, BMP, PTT, CBC, HS TROP, BNP, CK, HEPATIC, PT #### [facility] [address] No Panel InformationOrdered By: Manuel Dickens on 02-20-2024 Estimated GFR (CKD-EPI) > 60.0 mL/Min [facility] Creatinine Clearance (Chem 137.62 [facility] Nucleated erythrocytes [Pres ence] in Blood by Automated countOrdered By: Manuel Dickens on 02-20-2024 Nucleated RBC Auto Ql (Bld) 0.1 /100{WBC} 0-0.5 [facility] Partial Thromboplastin Timeo n 02-20-2024 aPTT Coag (Bld) [Time] 30.0 s Normal 25.1-36.5 [facility] Comment on above: Result Comment: A he matocrit value greater than 55% may lead to inaccurate results in coagulation testing. Patients having hematocrit values >55% require a special collection tube for coagulation studies. Please contact the laboratory at [phone] for redraw instructions. PERFORMED BY: [place] [address] PATHOLOGIST [employer] NINA KEATING M.D. Performed By: #### L IPASE, TSH3, BMP, PTT, CBC, HS TROP, BNP, CK, HEPATIC, PT #### [address] Platelet mean volume [Entiti c volume] in Blood by Automated countOrdered By: Manuel Dickens on 02-20-2024 Platelet mean volume (Bld) [Entitic vol] 9.3 fL Normal 6.6-10.1 [facility] Comment on above: Performed By: #### L IPASE, TSH3, BMP, PTT, CBC, HS TROP, BNP, CK, HEPATIC, PT #### [place] [address] [place] Platelets [#/volume] in Bloo d by Automated countOrdered By: Manuel Dickens on 02-20-2024 Platelets (Bld) [#/Vol] 217 10*3/uL Normal 150-450 [facility] Comment on above: Performed By: #### L IPASE, TSH3, BMP, PTT, CBC, HS TROP, BNP, CK, HEPATIC, PT #### [place] [address] [place] Potassium [Moles/volume] in Serum or PlasmaOrdered By: Manuel Dickens on 02-20-2024 Potassium [Moles/Vol] 3.8 mmol/L Normal 3.5-5.1 [facility] Comment on above: Performed By: #### L IPASE, TSH3, BMP, PTT, CBC, HS TROP, BNP, CK, HEPATIC, PT #### [place] [address] [place] Protein [Mass/volume] in Ser um or PlasmaOrdered By: Manuel Dickens on 02-20-2024 Protein [Mass/Vol] 8.3 g/dL Normal 6.4-8.9 [facility] Comment on above: Performed By: #### L IPASE, TSH3, BMP, PTT, CBC, HS TROP, BNP, CK, HEPATIC, PT #### [address] Prothrombin time (PT)Ordered By: Manuel Dickens on 02-20-2024 PT Coag (PPP) [Time] 10.9 s Normal 9.0-12.9 [facility] Comment on above: A hematocrit value g reater than 55% may lead to inaccurate results in coagulation testing. Patients having hematocrit values >55% require a special collection tube for coagulation studies. Please contact the laboratory at [phone] for redraw instructions. Result Comment: A he matocrit value greater than 55% may lead to inaccurate results in coagulation testing. Patients having hematocrit values >55% require a special collection tube for coagulation studies. Please contact the laboratory at [phone] for redraw instructions. Performed By: #### L IPASE, TSH3, BMP, PTT, CBC, HS TROP, BNP, CK, HEPATIC, PT #### [address] Serum globulin measurement b y calculation (mass/volume)Ordered By: Manuel Dickens on 02-20-2024 Globulin (S) [Mass/Vol] 3.3 g/dL [facility] Comment on above: Performed By: #### L IPASE, TSH3, BMP, PTT, CBC, HS TROP, BNP, CK, HEPATIC, PT #### [address] Serum or plasma albumin/glob ulin mass ratioOrdered By: Manuel Dickens on 02-20-2024 Albumin/Globulin [Mass ratio] 1.5 {ratio} [facility] Comment on above: Performed By: #### L IPASE, TSH3, BMP, PTT, CBC, HS TROP, BNP, CK, HEPATIC, PT #### [address] Serum or plasma anion gap de terminationOrdered By: Manuel Dickens on 02-20-2024 Anion gap [Moles/Vol] 12.3 mmol/L Normal 6.0-15.0 [facility] Comment on above: Performed By: #### L IPASE, TSH3, BMP, PTT, CBC, HS TROP, BNP, CK, HEPATIC, PT #### [facility] [address] Serum or plasma non-glucuron idated bilirubin measurement (mass/volume)Ordered By: Manuel Dickens on 02-20-2024 Bilirubin.indirect [Mass/Vol] 0.5 mg/dL [facility] Sodium [Moles/volume] in Ser um or PlasmaOrdered By: Manuel Dickens on 02-20-2024 Sodium [Moles/Vol] 139 mmol/L Normal 136-145 [facility] Comment on above: Performed By: #### L IPASE, TSH3, BMP, PTT, CBC, HS TROP, BNP, CK, HEPATIC, PT #### [address] Thyrotropin [Units/volume] i n Serum or PlasmaOrdered By: Manuel Dickens on 02-20-2024 TSH Qn 2.00 m[IU]/L Normal 0.45-5.33 [facility] Comment on above: Result Comment: PERF ORMED BY: [place] [address] PATHOLOGIST [employer] NINA KEATING M.D. Performed By: #### L IPASE, TSH3, BMP, PTT, CBC, HS TROP, BNP, CK, HEPATIC, PT #### [address] Troponin I High Sensitivityo n 02-20-2024 Troponin I High Sensitivity < 2.3 Normal 0.0-20.0 [facility] Comment on above: Result Comment: PERF ORMED BY: [place] [address] PATHOLOGIST [employer] NINA KEATING M.D. Performed By: #### L IPASE, TSH3, BMP, PTT, CBC, HS TROP, BNP, CK, HEPATIC, PT #### [address] Troponin I.cardiac [Mass/vol ume] in Serum or Plasma by Detection limit <= 0.01 ng/Ordered By: Manuel Dickens on 02-20-2024 Troponin I.cardiac DL <= 0.01 ng/mL [Mass/Vol] < 2.3 pg/mL 0.0-20.0 [facility] Urea nitrogen [Mass/volume] in Serum or PlasmaOrdered By: Manuel Dickens on 02-20-2024 Urea nitrogen [Mass/Vol] 14 mg/dL Normal 7-25 [facility] Comment on above: Performed By: #### L IPASE, TSH3, BMP, PTT, CBC, HS TROP, BNP, CK, HEPATIC, PT #### [facility] [address] XR chest 2V*on 02-20-2024 XR chest 2V* [facility] [place] [address] [place] [address] XRay Report Signed Patient: Dustin Harden MR#: [id number] : 1995 Acct:[id number] Age/Sex: 29 / M ADM Date: 02/20/24 Loc: ER Room: Type: PRE ER Attending Dr: Copies to: DAVID Oh DO Ordering Provider: Manuel Dickens DO Date of Service: 02/20/24 XR/XR chest 2V*: Chest Pain PA AND LATERAL CHEST: CLINICAL HISTORY: Chest pain and tightness for the past week. COMPARISON: None There is no focal parenchymal consolidation, effusion or pneumothorax. The cardiac, hilar and mediastinal silhouettes are within normal limits. There is no vascular congestion. The visualized bony thorax is intact. XR/XR chest 2V* IMPRESSION: NO ACUTE CARDIOPULMONARY ABNORMALITY. Impression dictated by: Odalis Austin M.D.02/20/2024 3:53 PM Dictation Location: [place] [address] Transcribed By: [facility] 02/20/24 155 Dictated By: Odalis Austin MD 02/20/24 155 Signed By: 02/20/24 155 Normal [facility] Covid-19 PCR (CVDTBH)on 09-15 SARS-CoV-2 (COVID-19) RNA KOSTAS+probe Ql (Unsp spec) Not detected Normal NOT DETECTED [facility] Comment on above: Result Comment: This test is not yet approved or cleared by the [place] FDA. When there are no FDA-approved or cleared tests available, and other criteria are met, FDA can make tests available under an emergency access mechanism called an Emergency Use Authorization (EUA). The EUA for this test is supported by the [place] of Health and Human Service's (HHS's) declaration that circumstances exist to justify the emergency use of in vitro diagnostics for the detection and/or diagnosis of the virus that causes COVID-19. This EUA will remain in effect (meaning this test can be used) for the duration of the COVID-19 declaration justifying emergency of IVDs, unless it is terminated or revoked by FDA (after which the test may no longer be used). When diagnostic testing is negative, the possibility of a false negative should be considered in the context of a patient's recent exposures and the presence of clinical signs and symptoms consistent with SARS-CoV-2. Performed By: #### [facility] #### [facility] [address] [address] [address] Kirk Matson Social History Date Type Detail Facility Start: 02-20-2024 End: 03-26-2024 Tobacco smoking status NHIS Smoker (finding) [facility] Start: 1995 Sex Assigned At Male [facility] Vital Signs Date Time Vital Sign Value Performing Clinician Faci lity 03-26-2024 09:43-0400 Heart rate 53 /min MD Mark Spaulding Work Phone: [facility] 03-26-2024 09:43-0400 Respiratory rate 16 /min MD Mark Spaulding Work Phone: [facility] 03-26-2024 09:43-0400 SaO2% (BldA) [Mass fraction] 97 % MD Mark Spaulding Work Phone: [facility] 03-26-2024 07:58-0400 Body height 175.26 cm MD Mark Spaulding Work Phone: [facility] 03-26-2024 07:58-0400 Body temperature 98.4 [degF] MD Mark Spaulding Work Phone: [facility] 03-26-2024 07:58-0400 Body weight 92.2 kg MD Mark Spaulding Work Phone: [facility] 03-26-2024 07:58-0400 Diastolic blood pressure 90 mm[Hg] MD Mark Spaulding Work Phone: [facility] 03-26-2024 07:58-0400 Systolic blood pressure 134 mm[Hg] MD Mark Spaulding Work Phone: [facility] 02-20-2024 17:44-0400 Diastolic blood pressure 79 mm[Hg] MD Mark Spaulding Work Phone: [facility] 02-20-2024 17:44-0400 Heart rate 80 /min MD Mark Spaulding Work Phone: [facility] 02-20-2024 17:44-0400 Respiratory rate 20 /min MD Mark Spaulding Work Phone: [facility] 02-20-2024 17:44-0400 SaO2% (BldA) [Mass fraction] 97 % MD Mark Spaulding Work Phone: [facility] 02-20-2024 17:44-0400 Systolic blood pressure 137 mm[Hg] MD Mark Spaulding Work Phone: [facility] 02-20-2024 14:00-0400 Body height 175.26 cm MD Mark Spaulding Work Phone: [facility] 02-20-2024 14:00-0400 Body temperature 97.7 [degF] MD Mark Spaulding Work Phone: [facility] 02-20-2024 14:00-0400 Body weight 94.8 kg MD Mark Spaulding Work Phone: [facility] Evaluation note Note Date & Type Note Facility Evaluation note No assessment information availa ble [facility] Work Phone: Summary Purpose Family History No Family History Records Found Relationship Condition Age at Onset Recorded Date/T bhavesh grandparent Diabetes mellitus Unknown Advance Directives No Advanced Directives Records Found Advance Directive Response Recorded Date/ Time Advance Directives No May 17 7:11am Chief Complaint and Reason for Visit Chief Complaint chest pain, weakness Chief Complaint chest pain, weakness chest pain Additional Source Comments (unrecognized sect ion and content) No Status Records FoundNo Status Records Found INFORMATION SOURCE (unrecogn ized section and content) DATE CREATED AUTHOR 10/04/2021 [facility] DATE CREATED AUTHOR AUTHOR'S ORGANIZ ATION 03/27/2024 [facility] Care Teams (unrecognized sec tion and content) Team Status: Active Member Role Status Dates Mark Spaulding MD Primary Care Provider Active Team Status: Inactive Member Role Status Dates Mark Spaulding MD Primary Care Provider Active Start: February 20, 2024 End: February 20, 2024 Jared Kelly PA-C Emergency Provider Active Start: February 20, 2024 End: February 20, 2024 Team Status: Inactive Member Role Status Dates Mark Spaulding MD Primary Care Provider Active Start: March 26, 2024 End: March 26, 2024 Denise Hdz DO Emergency Provider Active St art: March 26, 2024 End: March 26, 2024 Goals (unrecognized section and content) Goals may be documented in a n alternate sectionGoals may be documented in an alternate section FOR RECORDS PERTAINING TO PATIENTS WHO ARE OR HAVE BEEN ENROLLED IN A CHEMICAL DEPENDENCY/SUBSTANCEABUSE PROGRAM, SOME INFORMATION MAY BE OMITTED. This clinical summary was aggregated from multiple sources. Caution should be exercised in using it in the provision of clinical care. This summary normalizes information from multiple sources, and as a consequence, information in this document may materially change the coding, format and clinical context of patient data. In addition, data may be omitted in some cases. CLINICAL DECISIONS SHOULD BE BASED ON THE PRIMARY CLINICAL RECORDS. [facility]. provides no warranty or guarantee of the accuracy or completeness of information in this document.
[2024-04-11 11:23] LABS: Basophils Percent Auto 0.4 % (0.2-2.0); Eosinophils Percent Auto 0.5 % (0.9-7.0); Hematocrit 45.6 % (42.0-54.0); Hemoglobin 15.4 g/dL (14.0-18.0); Immature Granulocytes Abs Auto 0.02 10^3/uL (0.00-0.03); Immature Granulocytes Pct Auto 0.3 % (0.0-0.5); Lymphocytes Absolute Auto 1.2 10^3/uL (1.2-3.8); Lymphocytes Percent Auto 16.4 % (20.5-60.0); Mean Corpuscular HGB Conc 33.8 g/dL (29.9-35.2); Mean Corpuscular Hemoglobin 29.8 pg (25.9-34.0); Mean Corpuscular Volume 88.2 fL (80.0-94.0); Mean Platelet Volume 10.9 fL (9.5-13.5); Monocytes Absolute Auto 0.6 10^3/uL (0.3-0.8); Monocytes Percent Auto 8.1 % (1.7-12.0); Neutrophils Absolute Auto 5.5 10^3/uL (1.4-6.5); Neutrophils Percent Auto 74.3 % (43.0-75.0); Platelet Count 215 10^3/uL (150-450); Red Blood Count 5.17 10^6/uL (4.70-6.10); Red Cell Distribution Width 12.5 % (11.0-15.0); White Blood Count 7.4 10^3/uL (4.0-11.0)
[2024-04-11 11:44] LABS: Estimated Average Glucose 103 mg/dL; Glycohemoglobin A1C 5.2 % (4.5-6.2)
[2024-04-11 12:14] LABS: Alanine Aminotransferase 32 U/L (16-63); Albumin Globulin Ratio 1.1; Albumin Level 4.3 g/dL (3.4-5.0); Alkaline Phosphatase 94 U/L (46-116); Anion Gap 14.1; Aspartate Amino Transferase 16 U/L (15-37); Bilirubin Total 0.8 mg/dL (0.2-1.0); Calcium 9.4 mg/dL (8.5-10.1); Carbon Dioxide 25.8 mmol/L (21.0-32.0); Chloride 105 mmol/L (98-107); Chol HDL Ratio 2.7; Cholesterol 120 mg/dL (<=200); Estimated GFR (African America >60 (>=60); Estimated GFR (Non-African Ame >60 (>=60); Free T3 3.35 pg/mL (2.18-3.98); Globulin 3.9 g/dL; Glucose 85 mg/dL (74-106); HDL Cholesterol 45 mg/dL (40-60); LDL Cholesterol Calculated 61.2 mg/dL; Potassium 3.9 mmol/L (3.5-5.1); Sodium 141 mmol/L (136-145); Total Protein 8.2 g/dL (6.4-8.2); Triglycerides 69 mg/dL (<=150); VLDL CHOLESTEROL 13.8 mg/dL
== END 2024-04-11 10:54 | disposition home or self-care (01) ==
LOC: LAB 10:53
PROVIDERS: PCP Family Medicine; Visit Provider Family Medicine
DX: R53.83 Other fatigue (principal); W57.XXXA Bitten or stung by nonvenomous insect and other nonvenomous arthropods, initial encounter; M43.6 Torticollis; M25.50 Pain in unspecified joint; E78.5 Hyperlipidemia, unspecified; Z79.899 Other long term (current) drug therapy
CPT/HCPCS: 36415; 80053; 80061; 83036; 84436; 84443; 84481; 85025; 86617

== ENCOUNTER 2024-04-28 10:50 | Outpatient (OUT) | payer BC, SELFPAY ==
--- NOTE | 2024-04-28 | XR_ITS ---
The [address] [address] Patient Name: RON WATSON MRN: [id number] date: 1995 Sex: M Assigned Patient Location: Current Patient Location: Accession/Order Number: [id number] Exam Date: 04/28/2024 10:55 Report Date: 04/29/2024 13:29 At the request of: ANTHONY FAIR Procedure: XR finger LT min 2V PROCEDURE: XR finger LT min 2V COMPARISON: None. HISTORY: LEFT INDEX FINGER PAIN FINDINGS: BONES:No fracture, acute abnormality, or significant arthropathy. SOFT TISSUES:Focal soft tissue swelling identified volar aspect of the second proximal phalanx. EFFUSION:None visible. OTHER: 1 mm radiopaque foreign body dorsal base of the second middle phalanx XR/XR finger LT min 2V IMPRESSION: Soft tissue swelling / mass of unknown etiology Electronically authenticated by: JESUS CHAVES Date: 04/29/2024 13:29
== END 2024-04-28 10:51 | disposition home or self-care (01) ==
LOC: EC 10:50
PROVIDERS: PCP Family Medicine; Visit Provider Orthopaedic Surgery
DX: R22.32 Localized swelling, mass and lump, left upper limb (principal)
CPT/HCPCS: 73140

== ENCOUNTER 2024-05-05 09:06 | Outpatient (OUT) | payer BC, OTHER, SELFPAY ==
--- NOTE | 2024-05-05 09:14 | XR_ITS ---
The [address] [address] Patient Name: RON WATSON MRN: [id number] date: 1995 Sex: M Assigned Patient Location: [facility] Current Patient Location: Accession/Order Number: [id number] Exam Date: 05/05/2024 09:55 Report Date: 05/06/2024 06:29 At the request of: ANTHONY FAIR Procedure: XR chest 2V EXAMINATION: XR chest 2V HISTORY: Preop exam COMPARISON: No relevant comparison available. FINDINGS: LUNGS: No significant pulmonary parenchymal abnormalities. VASCULATURE: No increased pulmonary vasculature. PLEURA: No pneumothorax, effusion, or pleural thickening. CARDIAC: No cardiomegaly or cardiac silhouette abnormality. MEDIASTINUM: No visible mass or adenopathy. BONES: No fracture or visible bone lesion. OTHER: Negative. XR/XR chest 2V IMPRESSION: 1. Normal examination. Electronically authenticated by: ANTHONY HOLLEY Date: 05/06/2024 06:29
--- NOTE | 2024-05-05 09:44 | ECG_ITS ---
The [facility] Test Date: 2024-05-05 Pat Name: RON WATSON Department: Room: - Gender: Male [employer] Attendant: : 1995 Requested By: Hussein Curiel Order Number: [id number] Reading MD: RENEE LEWIS Measurements Intervals [place] Rate: 63 P: 62 ID: [id number] QRS: 56 QRSD: 89 T: 40 QT: 380 QTc: 389 Interpretive Statements SINUS RHYTHM No previous ECG available for comparison Electronically Signed On 05-07-2024 13:12:56 EDT by RENEE LEWIS
[2024-05-05 10:20] LABS: Anion Gap 14.2; BUN Creatinine Ratio 19.3; Calcium 9.2 mg/dL (8.5-10.1); Carbon Dioxide 25.8 mmol/L (21.0-32.0); Chloride 103 mmol/L (98-107); Estimated GFR (African America >60 (>=60); Estimated GFR (Non-African Ame >60 (>=60); Glucose 115 mg/dL (74-106); Sodium 139 mmol/L (136-145)
[2024-05-05 10:27] LABS: Basophils Percent Auto 0.5 % (0.2-2.0); Eosinophils Absolute Auto 0.1 10^3/uL (0.0-0.7); Eosinophils Percent Auto 1.6 % (0.9-7.0); Hematocrit 45.9 % (42.0-54.0); Hemoglobin 15.7 g/dL (14.0-18.0); Immature Granulocytes Abs Auto 0.02 10^3/uL (0.00-0.03); Immature Granulocytes Pct Auto 0.3 % (0.0-0.5); Lymphocytes Absolute Auto 1.3 10^3/uL (1.2-3.8); Lymphocytes Percent Auto 23.2 % (20.5-60.0); Mean Corpuscular HGB Conc 34.2 g/dL (29.9-35.2); Mean Corpuscular Volume 87.6 fL (80.0-94.0); Mean Platelet Volume 11.3 fL (9.5-13.5); Monocytes Absolute Auto 0.5 10^3/uL (0.3-0.8); Monocytes Percent Auto 8.8 % (1.7-12.0); Neutrophils Absolute Auto 3.8 10^3/uL (1.4-6.5); Neutrophils Percent Auto 65.6 % (43.0-75.0); Platelet Count 217 10^3/uL (150-450); Red Blood Count 5.24 10^6/uL (4.70-6.10); Red Cell Distribution Width 12.5 % (11.0-15.0); White Blood Count 5.8 10^3/uL (4.0-11.0)
[2024-05-05 10:35] LABS: INR 0.97; Partial Thromboplastin Time 31.9 sec (22.3-36.2); Prothrombin Time 10.3 sec (9.0-11.6)
== END 2024-05-05 09:07 | disposition home or self-care (01) ==
PROVIDERS: PCP Family Medicine; Visit Provider Orthopaedic Surgery
DX: Z01.810 Encounter for preprocedural cardiovascular examination (principal); Z01.812 Encounter for preprocedural laboratory examination; R22.32 Localized swelling, mass and lump, left upper limb
CPT/HCPCS: 71046; 80048; 85025; 85610; 85730; 93005

== ENCOUNTER 2024-05-12 11:45 | Day surgery (SDC) | payer BC, OTHER, SELFPAY ==
[2024-05-05 09:19] VITALS: BP 128/85; PULSE 73; TEMP 36.5; O2SAT 97; BMI 30.2
--- OUTSIDE RECORDS SUMMARY | 2024-05-12 11:47 | XMS_ITS | CCD ---
Author Organization [facility] Care Team Providers Care Cut [place]yer Name Role Phone PAY, DR HOLT Admitting Unavailable MISC, DR KILGORE Primary Care Unavailable PAY, DR HOLT Attending Unavailable PAY, DR HOLT Consulting Unavailable MISC, DR KILGORE Primary Care Unavailable MARKER, DR DICKENS Attending Unavailable MARKER, DR DICKENS Consulting Unavailable MARKER, DR DICKENS Admitting Unavailable MD Mark Spaulding Primary Care Provider DAVID Kelly Emergency Provider [phone] DO Juan Pattreson Emergency Provider Juan Patterson Admitting Unavailable Mark Spaulding Primary Care Unavailable Juan Patterson Attending Unavailable Mark Spaulding Primary Care Unavailable Jared Kelly Attending Unavailable Jared Kelly Admitting Unavailable Medications Current Medications Medication Drug Class(es) Dates [...] Sig (Original) Methylprednisolone (2 sources) Corticosteroid Start: End: 4 Methylprednisolone Discontinued MG May 17, 2021 12:00am February 20, 2024 1:56pm sulfamethoxazole 800 mg / trimethoprim 160 mg oral tablet (2 sources) Dihydrofolate Reductase Inhibitor Antibacterial, Sulfonamide Antimicrobial Start: End: 4 take 1 tablet by mouth twice daily Sulfamethoxazole-Trim ethoprim Discontinued 1 TAB PO Twice daily May 17, 2021 12:00am February 20, 2024 1:56pm Problems Active Problems Problem Classification Problem Date Documented Da te Episodic/Chronic Cardiac dysrhythmias (1 source) Palpitations; Translations: [Palpitations] Onset: 03-26-2024 Episodic Esophageal disorders (2 sources) Gastric reflux; Translations: [...] COUGH, UNSPECIFIED; Translations: [COUGH, UNSPECIFIED] Onset: 10-03-2021 Results Test Name Value Interpretation Reference Range Facility Activated partial thrombopla stin time (aPTT) in platelet poor plasma by coagulation aOrdered By: Juan Patterson on 03-26-2024 aPTT Coag (PPP) [Time] 28.3 s 25.1-36.5 [facility] Comment on above: A hematocrit value g reater than 55% may lead to inaccurate results in coagulation testing. Patients having hematocrit values >55% require a special collection tube for coagulation studies. Please contact the laboratory at [phone] for redraw instructions. Alanine aminotransferase [En zymatic activity/volume] in Serum or PlasmaOrdered By: Juan Patterson on 03-26-2024 ALT [Catalytic activity/Vol] 24 U/L Normal 7-52 [facility] Comment on above: Performed By: #### L IPASE, TSH3, BMP, PTT, CBC, HS TROP, BNP, CK, HEPATIC, PT #### [facility] [address] [place] [address] [place] Albumin [Mass/volume] in Ser um or Plasma by Bromocresol green (BCG) dye binding methoOrdered By: Juan Patterson on 03-26-2024 Albumin BCG dye [Mass/Vol] 4.8 g/dL 3.5-5.7 [facility] Alkaline phosphatase [Enzyma tic activity/volume] in Serum or PlasmaOrdered By: Juan Patterson on 03-26-2024 ALP [Catalytic activity/Vol] 80 U/L Normal 34-104 [facility] Comment on above: Performed By: #### L IPASE, TSH3, BMP, PTT, CBC, HS TROP, BNP, CK, HEPATIC, PT #### [facility] [address] [place] [address] [place] Aspartate aminotransferase [ Enzymatic activity/volume] in Serum or PlasmaOrdered By: Juan Patterson on 03-26-2024 AST [Catalytic activity/Vol] 23 U/L Normal 13-39 [facility] Comment on above: Performed By: #### L IPASE, TSH3, BMP, PTT, CBC, HS TROP, BNP, CK, HEPATIC, PT #### [address] Automated basophil %Ordered By: Juan Patterson on 03-26-2024 Basophils/100 WBC (Bld) 0.6 % Normal . [facility] Comment on above: Performed By: #### L IPASE, TSH3, BMP, PTT, CBC, HS TROP, BNP, CK, HEPATIC, PT #### [address] Automated basophil countOrde red By: Juan Patterson on 03-26-2024 Basophils (Bld) [#/Vol] 0.0 10*3/uL Normal 0.0-0.2 [facility] Comment on above: Result Comment: PERF ORMED BY: [place] [address] PATHOLOGIST [employer] HELPER NINA KEATING M.D. Performed By: #### L IPASE, TSH3, BMP, PTT, CBC, HS TROP, BNP, CK, HEPATIC, PT #### [address] Automated blood monocyte cou ntOrdered By: Juan Patterson on 03-26-2024 Monocytes (Bld) [#/Vol] 0.6 10*3/uL Normal 0.0-0.8 [facility] Comment on above: Performed By: #### L IPASE, TSH3, BMP, PTT, CBC, HS TROP, BNP, CK, HEPATIC, PT #### [address] Automated eosinophil %Ordere d By: Juan Patterson on 03-26-2024 Eosinophils/100 WBC (Bld) 1.9 % Normal . [facility] Comment on above: Performed By: #### L IPASE, TSH3, BMP, PTT, CBC, HS TROP, BNP, CK, HEPATIC, PT #### [address] Automated eosinophil countOr dered By: Juan Patterson on 03-26-2024 Eosinophils (Bld) [#/Vol] 0.1 10*3/uL Normal 0.0-0.45 [facility] Comment on above: Performed By: #### L IPASE, TSH3, BMP, PTT, CBC, HS TROP, BNP, CK, HEPATIC, PT #### [facility] [address] Automated monocyte %Ordered By: Juan Patterson on 03-26-2024 Monocytes/100 WBC (Bld) 8.9 % Normal . [facility] Comment on above: Performed By: #### L IPASE, TSH3, BMP, PTT, CBC, HS TROP, BNP, CK, HEPATIC, PT #### [facility] [address] Automated neutrophil %Ordere d By: Juan Patterson on 03-26-2024 Neutrophils/100 WBC (Bld) 65.5 % Normal . [facility] Comment on above: Performed By: #### L IPASE, TSH3, BMP, PTT, CBC, HS TROP, BNP, CK, HEPATIC, PT #### [facility] [address] Bilirubin.total [Mass/volume ] in Serum or PlasmaOrdered By: Juan Patterson on 03-26-2024 Bilirubin [Mass/Vol] 0.8 mg/dL Normal 0.3-1.0 [facility] Comment on above: Performed By: #### L IPASE, TSH3, BMP, PTT, CBC, HS TROP, BNP, CK, HEPATIC, PT #### [facility] [address] Calcium [Mass/volume] in Ser um or PlasmaOrdered By: Juan Patterson on 03-26-2024 Calcium [Mass/Vol] 10.1 mg/dL Normal 8.6-10.3 [facility] Comment on above: Performed By: #### L IPASE, TSH3, BMP, PTT, CBC, HS TROP, BNP, CK, HEPATIC, PT #### [address] Carbon dioxide, total [Moles /volume] in Serum or PlasmaOrdered By: Juan Patterson on 03-26-2024 CO2 [Moles/Vol] 24.0 mmol/L Normal 21.0-31.0 [facility] Comment on above: Performed By: #### L IPASE, TSH3, BMP, PTT, CBC, HS TROP, BNP, CK, HEPATIC, PT #### [address] Chloride [Moles/volume] in S germaine or PlasmaOrdered By: Juan Patterson on 03-26-2024 Chloride [Moles/Vol] 104 mmol/L Normal 98-107 [facility] Comment on above: Performed By: #### L IPASE, TSH3, BMP, PTT, CBC, HS TROP, BNP, CK, HEPATIC, PT #### [address] Complete Blood Count Auto Di ffon 03-26-2024 Mean Corpuscular HGB Conc 34.8 g/dL Normal 32.5-35.6 [facility] Comment on above: Performed By: #### L IPASE, TSH3, BMP, PTT, CBC, HS TROP, BNP, CK, HEPATIC, PT #### [address] Monocytes/100 WBC (Bld) 16.49 % Normal 0.00-20.00 [facility] Comment on above: Performed By: #### L IPASE, TSH3, BMP, PTT, CBC, HS TROP, BNP, CK, HEPATIC, PT #### [address] NRBC% 0.2 /100{WBC} Normal 0-0.5 [facility] Comment on above: Performed By: #### L IPASE, TSH3, BMP, PTT, CBC, HS TROP, BNP, CK, HEPATIC, PT #### [address] Comprehensive Metabolic Pane annette 03-26-2024 Albumin [Mass/Vol] 4.8 g/dL Normal 3.5-5.7 [facility] Comment on above: Performed By: #### L IPASE, TSH3, BMP, PTT, CBC, HS TROP, BNP, CK, HEPATIC, PT #### [address] [place] [place] [address] [place] Creatinine Clr Calc Pharmacy 158.77 Normal [facility] Comment on above: Performed By: #### L IPASE, TSH3, BMP, PTT, CBC, HS TROP, BNP, CK, HEPATIC, PT #### [facility] [address] [place] [address] [place] GFR/1.73 sq M.predicted MDRD (S/P/Bld) [Vol rate/Area] mL/min/{1.73_m2} Normal [facility] Comment on above: Performed By: #### L IPASE, TSH3, BMP, PTT, CBC, HS TROP, BNP, CK, HEPATIC, PT #### [facility] [address] Creatine kinase [Enzymatic a ctivity/volume] in Serum or PlasmaOrdered By: Juan Patterson on 03-26-2024 CK [Catalytic activity/Vol] 122 U/L Normal 30-223 [facility] Comment on above: Performed By: #### L IPASE, TSH3, BMP, PTT, CBC, HS TROP, BNP, CK, HEPATIC, PT #### [facility] [address] [place] [address] [place] Creatinine [Mass/volume] in Serum or PlasmaOrdered By: Juan Patterson on 03-26-2024 Creatinine [Mass/Vol] 0.77 mg/dL Normal 0.70-1.30 [facility] Comment on above: Performed By: #### L IPASE, TSH3, BMP, PTT, CBC, HS TROP, BNP, CK, HEPATIC, PT #### [facility] [address] [place] [id number] [place] ECG 12 lead ECGon 03-26-2024 ECG 12 lead ECG [facility] [address] [place] [address] [place] [address] Electrocardiograph Report Signed Patient: Dustin Harden MR#: [id number] : 1995 Acct:[id number] Age/Sex: 29 / M ADM Date: 03/26/24 Loc: ER Room: Type: [facility] ER Attending Dr: Ordering Provider: Juan Patterson DO Date of Service: 03/26/2410/07/811 ECG/ECG 12 [...] No significant change was found Confirmed by JUAN PATTERSON DO ([id number]) on 03/26/2024 2:37:02 PM Referred By: Electronically Signed By:JUAN PATTERSON DO Transcribed By: MUS Signed By Juan Patterson DO 1437 Normal [facility] Erythrocyte distribution wid th [Ratio] by Automated countOrdered By: Juan Patterson on 03-26-2024 Erythrocyte distribution width (RBC) [Ratio] 13.4 % Normal 12.0-14.8 [facility] Comment on above: Performed By: #### L IPASE, TSH3, BMP, PTT, CBC, HS TROP, BNP, CK, HEPATIC, PT #### [facility] [address] Erythrocytes [#/volume] in B lood by Automated countOrdered By: Juan Patterson on 03-26-2024 RBC (Bld) [#/Vol] 5.28 10*6/uL Normal 3.90-5.60 [facility] Comment on above: Performed By: #### L IPASE, TSH3, BMP, PTT, CBC, HS TROP, BNP, CK, HEPATIC, PT #### [facility] [address] [place] [address] [place] Glucose [Mass/volume] in Ser um or PlasmaOrdered By: Juan Patterson on 03-26-2024 Glucose [Mass/Vol] 98 mg/dL Normal 70-100 [facility] Comment on above: ADA recommended refe rence rangeRandom Glucose Reference Range is dependent on time and content of last meal. Glucose of more than 200 mg/dL in a nonstressed, ambulatory subject supports the diagnosis of Diabetes Mellitus. Result Comment: [facility] Glucose Reference Range is dependent on time and content of last meal. Glucose of more than 200 mg/dL in a nonstressed, ambulatory subject supports the diagnosis of Diabetes Mellitus. ADA recommended reference range Performed By: #### L IPASE, TSH3, BMP, PTT, CBC, HS TROP, BNP, CK, HEPATIC, PT #### [facility] [address] Hematocrit [Volume Fraction] of Blood by Automated countOrdered By: Juna Patterson on 03-26-2024 Hematocrit (Bld) [Volume fraction] 46.2 % Normal 38.8-50.0 [facility] Comment on above: Performed By: #### L IPASE, TSH3, BMP, PTT, CBC, HS TROP, BNP, CK, HEPATIC, PT #### [address] Hemoglobin [Mass/volume] in BloodOrdered By: Juan Patterson on 03-26-2024 Hemoglobin (Bld) [Mass/Vol] 16.1 g/dL Normal 13.0-17.0 [facility] Comment on above: Performed By: #### L IPASE, TSH3, BMP, PTT, CBC, HS TROP, BNP, CK, HEPATIC, PT #### [address] INR in Platelet poor plasma by Coagulation assayOrdered By: Juan Patterson on 03-26-2024 INR Coag (PPP) [Relative time] 1.0 {INR} Normal [facility] Comment on above: INR Therapeutic Rang e [...] HS TROP, BNP, CK, HEPATIC, PT #### [address] Leukocytes [#/volume] correc modesta for nucleated erythrocytes in Blood by Automated counOrdered By: Juan Patterson on 03-26-2024 WBC corrected for nucl RBC Auto (Bld) [#/Vol] 6.2 10*3/uL 4.1-10.5 [facility] Leukocytes [#/volume] in Blo od by Automated countOrdered By: Juan Patterson on 03-26-2024 WBC (Bld) [#/Vol] 6.2 10*3/uL Normal 4.1-10.5 [facility] Comment on above: Performed By: #### L IPASE, TSH3, BMP, PTT, CBC, HS TROP, BNP, CK, HEPATIC, PT #### [address] Lymphocytes [#/volume] in Bl ood by Automated countOrdered By: Juan Patterson on 03-26-2024 Lymphocytes (Bld) [#/Vol] 1.4 10*3/uL Normal 1.00-4.8 [facility] Comment on above: Performed By: #### L IPASE, TSH3, BMP, PTT, CBC, HS TROP, BNP, CK, HEPATIC, PT #### [place] [address] [place] Lymphocytes/100 leukocytes i n Blood by Automated countOrdered By: Juan Patterson on 03-26-2024 Lymphocytes/100 WBC (Bld) 23.1 % Normal . [facility] Comment on above: Performed By: #### L IPASE, TSH3, BMP, PTT, CBC, HS TROP, BNP, CK, HEPATIC, PT #### [place] [address] [place] MCH [Entitic mass] by Automa modesta countOrdered By: Juan Patterson on 03-26-2024 MCH (RBC) [Entitic mass] 30.5 pg Normal 27.5-35.2 [facility] Comment on above: Performed By: #### L IPASE, TSH3, BMP, PTT, CBC, HS TROP, BNP, CK, HEPATIC, PT #### [facility] [address] MCHC Auto (RBC) [Mass/Vol]Or dered By: Juan Patterson on 03-26-2024 MCHC (RBC) [Mass/Vol] 34.8 g/dL 32.5-35.6 [facility] MCV [Entitic volume] by Auto mated countOrdered By: Juan Patterson on 03-26-2024 MCV (RBC) [Entitic vol] 87.6 fL Normal 83.5-101 [facility] Comment on above: Performed By: #### L IPASE, TSH3, BMP, PTT, CBC, HS TROP, BNP, CK, HEPATIC, PT #### [facility] [address] Magnesium [Mass/volume] in S germaine or PlasmaOrdered By: Juan Patterson on 03-26-2024 Magnesium [Mass/Vol] 1.8 mg/dL Low 1.9-2.7 [facility] Comment on above: Result Comment: PERF ORMED BY: [place] [address] PATHOLOGIST [employer] HEL[employer] NINA KEATING M.D. Performed By: #### L IPASE, TSH3, BMP, PTT, CBC, HS TROP, BNP, CK, HEPATIC, PT #### [facility] [address] Monocyte distribution width [Entitic volume] in Blood by AutomatedOrdered By: Juan Patterson on 03-26-2024 Monocyte distribution width Auto (Bld) [Entitic vol] 16.49 % 0.00-20.00 [facility] Neutrophils [#/volume] in Bl ood by Automated countOrdered By: Juan Patterson on 03-26-2024 Neutrophils (Bld) [#/Vol] 4.1 10*3/uL Normal 1.8-7.7 [facility] Comment on above: Performed By: #### L IPASE, TSH3, BMP, PTT, CBC, HS TROP, BNP, CK, HEPATIC, PT #### [facility] [address] [place] [address] No Panel InformationOrdered By: Juan Patterson on 03-26-2024 Estimated GFR (CKD-EPI) > 60.0 mL/Min [facility] Creatinine Clearance (Chem 158.77 [facility] Nucleated erythrocytes [Pres ence] in Blood by Automated countOrdered By: Juan Patterson on 03-26-2024 Nucleated RBC Auto Ql (Bld) 0.2 /100{WBC} 0-0.5 [facility] Partial Thromboplastin Timeo n 03-26-2024 aPTT Coag (Bld) [Time] 28.3 s Normal 25.1-36.5 [facility] Comment on above: Result Comment: A he matocrit value greater than 55% may lead to inaccurate results in coagulation testing. Patients having hematocrit values >55% require a special collection tube for coagulation studies. Please contact the laboratory at [phone] for redraw instructions. PERFORMED BY: [place] [address] PATHOLOGIST [employer] HEL[employer] NINA KEATING M.D. Performed By: #### L IPASE, TSH3, BMP, PTT, CBC, HS TROP, BNP, CK, HEPATIC, PT #### [address] Platelet mean volume [Entiti c volume] in Blood by Automated countOrdered By: Juan Patterson on 03-26-2024 Platelet mean volume (Bld) [Entitic vol] 9.2 fL Normal 6.6-10.1 [facility] Comment on above: Performed By: #### L IPASE, TSH3, BMP, PTT, CBC, HS TROP, BNP, CK, HEPATIC, PT #### [address] Platelets [#/volume] in Bloo d by Automated countOrdered By: Juan Patterson on 03-26-2024 Platelets (Bld) [#/Vol] 210 10*3/uL Normal 150-450 [facility] Comment on above: Performed By: #### L IPASE, TSH3, BMP, PTT, CBC, HS TROP, BNP, CK, HEPATIC, PT #### [facility] [address] Potassium [Moles/volume] in Serum or PlasmaOrdered By: Juan Patterson on 03-26-2024 Potassium [Moles/Vol] 3.9 mmol/L Normal 3.5-5.1 [facility] Comment on above: Performed By: #### L IPASE, TSH3, BMP, PTT, CBC, HS TROP, BNP, CK, HEPATIC, PT #### [facility] [address] Protein [Mass/volume] in Ser um or PlasmaOrdered By: Juan Patterson on 03-26-2024 Protein [Mass/Vol] 8.0 g/dL Normal 6.4-8.9 [facility] Comment on above: Performed By: #### L IPASE, TSH3, BMP, PTT, CBC, HS TROP, BNP, CK, HEPATIC, PT #### [facility] [address] Prothrombin time (PT)Ordered By: Juan Patterson on 03-26-2024 PT Coag (PPP) [Time] 11.1 s Normal 9.0-12.9 [facility] Comment on above: A hematocrit value g reater than 55% may lead to inaccurate results in coagulation testing. Patients having hematocrit values >55% require a special collection tube for coagulation studies. Please contact the laboratory at [phone] for redraw instructions. Result Comment: A he matocrit value greater than 55% may lead to inaccurate results in coagulation testing. Patients having hematocrit values >55% require a special collection tube for coagulation studies. Please contact the laboratory at [phone] for redraw instructions. Performed By: #### L IPASE, TSH3, BMP, PTT, CBC, HS TROP, BNP, CK, HEPATIC, PT #### [facility] [address] Serum globulin measurement b y calculation (mass/volume)Ordered By: Juan Patterson on 03-26-2024 Globulin (S) [Mass/Vol] 3.2 g/dL [facility] Comment on above: Performed By: #### L IPASE, TSH3, BMP, PTT, CBC, HS TROP, BNP, CK, HEPATIC, PT #### [facility] [address] [place] [address] Serum or plasma albumin/glob ulin mass ratioOrdered By: Juan Patetrson on 03-26-2024 Albumin/Globulin [Mass ratio] 1.5 {ratio} [facility] Comment on above: Performed By: #### L IPASE, TSH3, BMP, PTT, CBC, HS TROP, BNP, CK, HEPATIC, PT #### [facility] [address] [place] [address] Serum or plasma anion gap de terminationOrdered By: Juan Patterson on 03-26-2024 Anion gap [Moles/Vol] 13.9 mmol/L Normal 6.0-15.0 [facility] Comment on above: Performed By: #### L IPASE, TSH3, BMP, PTT, CBC, HS TROP, BNP, CK, HEPATIC, PT #### [facility] [address] [place] [address] Sodium [Moles/volume] in Ser um or PlasmaOrdered By: Juan Patterson on 03-26-2024 Sodium [Moles/Vol] 138 mmol/L Normal 136-145 [facility] Comment on above: Performed By: #### L IPASE, TSH3, BMP, PTT, CBC, HS TROP, BNP, CK, HEPATIC, PT #### [facility] [address] [place] [address] Troponin I High Sensitivityo n 03-26-2024 Troponin I High Sensitivity < 2.3 Normal 0.0-20.0 [facility] Comment on above: Result Comment: PERF ORMED BY: [place] [address] PATHOLOGIST [employer] HEL[employer] NINA KEATING M.D. Performed By: #### L IPASE, TSH3, BMP, PTT, CBC, HS TROP, BNP, CK, HEPATIC, PT #### [facility] [address] Troponin I.cardiac [Mass/vol ume] in Serum or Plasma by Detection limit <= 0.01 ng/Ordered By: Juan Patterson on 03-26-2024 Troponin I.cardiac DL <= 0.01 ng/mL [Mass/Vol] < 2.3 pg/mL 0.0-20.0 [facility] Urea nitrogen [Mass/volume] in Serum or PlasmaOrdered By: Juan Patterson on 03-26-2024 Urea nitrogen [Mass/Vol] 15 mg/dL Normal 7-25 [facility] Comment on above: Performed By: #### L IPASE, TSH3, BMP, PTT, CBC, HS TROP, BNP, CK, HEPATIC, PT #### [facility] [address] [place] [address] XR chest 1V portableon 03-26 XR chest 1V portable [facility] [place] [address] XRay Report Signed Patient: Dustin Harden MR#: [id number] : 1995 Acct:[id number] Age/Sex: 29 / M ADM Date: 03/26/24 Loc: ER Room: Type: [facility] ER Attending Dr: Copies to: Juan Patterson DO Ordering Provider: Juan Patterson DO Date of Service: 03/26/24 XR/XR chest 1V portable: Arrhythmia/Palpitations SINGLE VIEW CHEST CLINICAL HISTORY: Arrhythmia palpitations congestion COMPARISON: Chest 02/20/2024 FINDINGS: Heart normal in size. Lungs are clear. No free air. XR/XR chest 1V portable IMPRESSION: NO ACUTE FINDINGS Impression dictated by: Gallo Urban Jr., D.OLeroy03/26/2024 8:53 AM Dictation Location: [place] [address] Transcribed By: [facility] 03/26/24 0853 Dictated By: Gallo Urban Jr, DO 03/26/24 0847 Signed By: 06/12/24 0853 Normal [facility] Activated partial thrombopla stin time (aPTT) in platelet poor plasma by coagulation aOrdered By: Manuel Mccartney on 02-20-2024 aPTT Coag (PPP) [Time] 30.0 s 25.1-36.5 [facility] Comment on above: A hematocrit value g reater than 55% may lead to inaccurate results in coagulation testing. Patients having hematocrit values >55% require a special collection tube for coagulation studies. Please contact the laboratory at [phone] for redraw instructions. Alanine aminotransferase [En zymatic activity/volume] in Serum or PlasmaOrdered By: Manuel Mccartney on 02-20-2024 ALT [Catalytic activity/Vol] 36 U/L Normal 7-52 [facility] Comment on above: Performed By: #### L IPASE, TSH3, BMP, PTT, CBC, HS TROP, BNP, CK, HEPATIC, PT #### [facility] [address] [place] [address] [place] Albumin [Mass/volume] in Ser um or Plasma by Bromocresol green (BCG) dye binding methoOrdered By: Manuel Mccartney on 02-20-2024 Albumin BCG dye [Mass/Vol] 5.0 g/dL 3.5-5.7 [facility] Alkaline phosphatase [Enzyma tic activity/volume] in Serum or PlasmaOrdered By: Manuel Mccartney on 02-20-2024 ALP [Catalytic activity/Vol] 76 U/L Normal 34-104 [facility] Comment on above: Performed By: #### L IPASE, TSH3, BMP, PTT, CBC, HS TROP, BNP, CK, HEPATIC, PT #### [facility] [address] [place] [address] [place] Aspartate aminotransferase [ Enzymatic activity/volume] in Serum or PlasmaOrdered By: Manuel Mccartney on 02-20-2024 AST [Catalytic activity/Vol] 26 U/L Normal 13-39 [facility] Comment on above: Performed By: #### L IPASE, TSH3, BMP, PTT, CBC, HS TROP, BNP, CK, HEPATIC, PT #### [facility] [address] [place] [id number] [place] Automated basophil %Ordered By: Manuel Mccartney on 02-20-2024 Basophils/100 WBC (Bld) 0.5 % Normal . [facility] Comment on above: Performed By: #### L IPASE, TSH3, BMP, PTT, CBC, HS TROP, BNP, CK, HEPATIC, PT #### [address] Automated basophil countOrde red By: Manuel Mccartney on 02-20-2024 Basophils (Bld) [#/Vol] 0.1 10*3/uL Normal 0.0-0.2 [facility] Comment on above: Result Comment: PERF ORMED BY: [place] [address] PATHOLOGIST [employer] HELPER NINA KEATING M.D. Performed By: #### L IPASE, TSH3, BMP, PTT, CBC, HS TROP, BNP, CK, HEPATIC, PT #### [address] Automated blood monocyte cou ntOrdered By: Manuel Mccartney on 02-20-2024 Monocytes (Bld) [#/Vol] 0.8 10*3/uL Normal 0.0-0.8 [facility] Comment on above: Performed By: #### L IPASE, TSH3, BMP, PTT, CBC, HS TROP, BNP, CK, HEPATIC, PT #### [address] Automated eosinophil %Ordere d By: Manuel Mccartney on 02-20-2024 Eosinophils/100 WBC (Bld) 0.6 % Normal . [facility] Comment on above: Performed By: #### L IPASE, TSH3, BMP, PTT, CBC, HS TROP, BNP, CK, HEPATIC, PT #### [address] Automated eosinophil countOr dered By: Manuel Mccartney on 02-20-2024 Eosinophils (Bld) [#/Vol] 0.1 10*3/uL Normal 0.0-0.45 [facility] Comment on above: Performed By: #### L IPASE, TSH3, BMP, PTT, CBC, HS TROP, BNP, CK, HEPATIC, PT #### [address] Automated monocyte %Ordered By: Manuel Mccartney on 02-20-2024 Monocytes/100 WBC (Bld) 7.3 % Normal . [facility] Comment on above: Performed By: #### L IPASE, TSH3, BMP, PTT, CBC, HS TROP, BNP, CK, HEPATIC, PT #### [address] Automated neutrophil %Ordere d By: Manuel Mccartney on 02-20-2024 Neutrophils/100 WBC (Bld) 79.8 % Normal . [facility] Comment on above: Performed By: #### L IPASE, TSH3, BMP, PTT, CBC, HS TROP, BNP, CK, HEPATIC, PT #### [address] BNP ser/plasOrdered By: Manuel Mccartney on 02-20-2024 Natriuretic peptide B (Bld) [Mass/Vol] 7.0 pg/mL Normal 5-100 [facility] Comment on above: Result Comment: PERF ORMED BY: [place] [address] PATHOLOGIST [employer] NINA KEATING M.D. Performed By: #### L IPASE, TSH3, BMP, PTT, CBC, HS TROP, BNP, CK, HEPATIC, PT #### [address] Basic Metabolic Panelon 05-0 Creatinine Clr Calc Pharmacy 137.62 Normal [facility] Comment on above: Performed By: #### L IPASE, TSH3, BMP, PTT, CBC, HS TROP, BNP, CK, HEPATIC, PT #### [address] GFR/1.73 sq M.predicted MDRD (S/P/Bld) [Vol rate/Area] mL/min/{1.73_m2} Normal [facility] Comment on above: Performed By: #### L IPASE, TSH3, BMP, PTT, CBC, HS TROP, BNP, CK, HEPATIC, PT #### [facility] [address] Bilirubin.direct [Mass/volum e] in Serum or PlasmaOrdered By: Manuel Mccartney on 02-20-2024 Bilirubin.direct [Mass/Vol] 0.10 mg/dL 0.03-0.18 [facility] Bilirubin.total [Mass/volume ] in Serum or PlasmaOrdered By: Manuel Mccartney on 02-20-2024 Bilirubin [Mass/Vol] 0.6 mg/dL Normal 0.3-1.0 [facility] Comment on above: Performed By: #### L IPASE, TSH3, BMP, PTT, CBC, HS TROP, BNP, CK, HEPATIC, PT #### [facility] [address] Calcium [Mass/volume] in Ser um or PlasmaOrdered By: Manuel Mccartney on 02-20-2024 Calcium [Mass/Vol] 10.1 mg/dL Normal 8.6-10.3 [facility] Comment on above: Performed By: #### L IPASE, TSH3, BMP, PTT, CBC, HS TROP, BNP, CK, HEPATIC, PT #### [facility] [address] Carbon dioxide, total [Moles /volume] in Serum or PlasmaOrdered By: Manuel Mccartney on 02-20-2024 CO2 [Moles/Vol] 25.5 mmol/L Normal 21.0-31.0 [facility] Comment on above: Performed By: #### L IPASE, TSH3, BMP, PTT, CBC, HS TROP, BNP, CK, HEPATIC, PT #### [facility] [address] [place] [address] [place] Chloride [Moles/volume] in S germaine or PlasmaOrdered By: Manuel Mccartney on 02-20-2024 Chloride [Moles/Vol] 105 mmol/L Normal 98-107 [facility] Comment on above: Performed By: #### L IPASE, TSH3, BMP, PTT, CBC, HS TROP, BNP, CK, HEPATIC, PT #### [address] Complete Blood Count Auto Di ffon 02-20-2024 Mean Corpuscular HGB Conc 34.4 g/dL Normal 32.5-35.6 [facility] Comment on above: Performed By: #### L IPASE, TSH3, BMP, PTT, CBC, HS TROP, BNP, CK, HEPATIC, PT #### [address] Monocytes/100 WBC (Bld) 16.28 % Normal 0.00-20.00 [facility] Comment on above: Performed By: #### L IPASE, TSH3, BMP, PTT, CBC, HS TROP, BNP, CK, HEPATIC, PT #### [address] NRBC% 0.1 /100{WBC} Normal 0-0.5 [facility] Comment on above: Performed By: #### L IPASE, TSH3, BMP, PTT, CBC, HS TROP, BNP, CK, HEPATIC, PT #### [address] Creatine kinase [Enzymatic a ctivity/volume] in Serum or PlasmaOrdered By: Manuel Mccartney on 02-20-2024 CK [Catalytic activity/Vol] 100 U/L Normal 30-223 [facility] Comment on above: Performed By: #### L IPASE, TSH3, BMP, PTT, CBC, HS TROP, BNP, CK, HEPATIC, PT #### [address] Creatinine [Mass/volume] in Serum or PlasmaOrdered By: Manuel Mccartney on 02-20-2024 Creatinine [Mass/Vol] 0.90 mg/dL Normal 0.70-1.30 [facility] Comment on above: Performed By: #### L IPASE, TSH3, BMP, PTT, CBC, HS TROP, BNP, CK, HEPATIC, PT #### [address] ECG 12 lead ECGon 02-20-2024 ECG 12 lead ECG [facility] [place] [address] Electrocardiograph Report Signed Patient: Dustin Harden MR#: [id number] : 1995 Acct:[id number] Age/Sex: 29 / M ADM Date: 02/20/24 [...] No previous ECGs available Confirmed by MANUEL MCCARTNEY DO ([id number]) on 02/20/2024 3:42:48 PM Referred By: Electronically Signed By:MANUEL MCCARTNEY DO Transcribed By: MUS Signed By Manuel Mccartney DO 02/19 1542 Normal [facility] Erythrocyte distribution wid th [Ratio] by Automated countOrdered By: Manuel Mccartney on 02-20-2024 Erythrocyte distribution width (RBC) [Ratio] 13.2 % Normal 12.0-14.8 [facility] Comment on above: Performed By: #### L IPASE, TSH3, BMP, PTT, CBC, HS TROP, BNP, CK, HEPATIC, PT #### [facility] [address] [place] [address] [place] Erythrocytes [#/volume] in B lood by Automated countOrdered By: Manuel Mccartney on 02-20-2024 RBC (Bld) [#/Vol] 5.47 10*6/uL Normal 3.90-5.60 [facility] Comment on above: Performed By: #### L IPASE, TSH3, BMP, PTT, CBC, HS TROP, BNP, CK, HEPATIC, PT #### [facility] [address] [place] [address] [place] Glucose [Mass/volume] in Ser um or PlasmaOrdered By: Manuel Mccartney on 02-20-2024 Glucose [Mass/Vol] 96 mg/dL Normal 70-100 [facility] Comment on above: ADA recommended refe rence rangeRandom Glucose Reference Range is dependent on time and content of last meal. Glucose of more than 200 mg/dL in a nonstressed, ambulatory subject supports the diagnosis of Diabetes Mellitus. Result Comment: [place] om Glucose Reference Range is dependent on time and content of last meal. Glucose of more than 200 mg/dL in a nonstressed, ambulatory subject supports the diagnosis of Diabetes Mellitus. ADA recommended reference range Performed By: #### L IPASE, TSH3, BMP, PTT, CBC, HS TROP, BNP, CK, HEPATIC, PT #### [address] Hematocrit [Volume Fraction] of Blood by Automated countOrdered By: Manuel Mccartney on 02-20-2024 Hematocrit (Bld) [Volume fraction] 47.6 % Normal 38.8-50.0 [facility] Comment on above: Performed By: #### L IPASE, TSH3, BMP, PTT, CBC, HS TROP, BNP, CK, HEPATIC, PT #### [address] Hemoglobin [Mass/volume] in BloodOrdered By: Manuel Mccartney on 02-20-2024 Hemoglobin (Bld) [Mass/Vol] 16.4 g/dL Normal 13.0-17.0 [facility] Comment on above: Performed By: #### L IPASE, TSH3, BMP, PTT, CBC, HS TROP, BNP, CK, HEPATIC, PT #### [address] Hepatic Panelon 02-20-2024 Albumin [Mass/Vol] 5.0 g/dL Normal 3.5-5.7 [facility] Comment on above: Performed By: #### L IPASE, TSH3, BMP, PTT, CBC, HS TROP, BNP, CK, HEPATIC, PT #### [address] Bilirubin,Indirect 0.5 mg/dL Normal [facility] Comment on above: Performed By: #### L IPASE, TSH3, BMP, PTT, CBC, HS TROP, BNP, CK, HEPATIC, PT #### [facility] [address] Bilirubin.indirect [Mass/Vol] 0.10 mg/dL Normal 0.03-0.18 [facility] Comment on above: Performed By: #### L IPASE, TSH3, BMP, PTT, CBC, HS TROP, BNP, CK, HEPATIC, PT #### [facility] [address] INR in Platelet poor plasma by Coagulation assayOrdered By: Manuel Mccartney on 02-20-2024 INR Coag (PPP) [Relative time] 0.9 {INR} Normal [facility] Comment on above: INR Therapeutic Rang e [...] PT #### [facility] [address] Leukocytes [#/volume] correc modesta for nucleated erythrocytes in Blood by Automated counOrdered By: Manuel Mccartney on 02-20-2024 WBC corrected for nucl RBC Auto (Bld) [#/Vol] 10.4 10*3/uL 4.1-10.5 [facility] Leukocytes [#/volume] in Blo od by Automated countOrdered By: Manuel Mccartney on 02-20-2024 WBC (Bld) [#/Vol] 10.4 10*3/uL Normal 4.1-10.5 [facility] Comment on above: Performed By: #### L IPASE, TSH3, BMP, PTT, CBC, HS TROP, BNP, CK, HEPATIC, PT #### [facility] [address] Lipase [Enzymatic activity/v olume] in Serum or PlasmaOrdered By: Manuel Mccartney on 02-20-2024 Lipase [Catalytic activity/Vol] 6.0 U/L Low 11.0-82.0 [facility] Comment on above: Performed By: #### L IPASE, TSH3, BMP, PTT, CBC, HS TROP, BNP, CK, HEPATIC, PT #### [address] Lymphocytes [#/volume] in Bl ood by Automated countOrdered By: Manuel Mccartney on 02-20-2024 Lymphocytes (Bld) [#/Vol] 1.2 10*3/uL Normal 1.00-4.8 [facility] Comment on above: Performed By: #### L IPASE, TSH3, BMP, PTT, CBC, HS TROP, BNP, CK, HEPATIC, PT #### [address] Lymphocytes/100 leukocytes i n Blood by Automated countOrdered By: Manuel Mccartney on 02-20-2024 Lymphocytes/100 WBC (Bld) 11.8 % Normal . [facility] Comment on above: Performed By: #### L IPASE, TSH3, BMP, PTT, CBC, HS TROP, BNP, CK, HEPATIC, PT #### [address] MCH [Entitic mass] by Automa modesta countOrdered By: Manuel Mccartney on 02-20-2024 MCH (RBC) [Entitic mass] 29.9 pg Normal 27.5-35.2 [facility] Comment on above: Performed By: #### L IPASE, TSH3, BMP, PTT, CBC, HS TROP, BNP, CK, HEPATIC, PT #### [address] MCHC Auto (RBC) [Mass/Vol]Or dered By: Manuel Mccartney on 02-20-2024 MCHC (RBC) [Mass/Vol] 34.4 g/dL 32.5-35.6 [facility] MCV [Entitic volume] by Auto mated countOrdered By: Manuel Mccartney on 02-20-2024 MCV (RBC) [Entitic vol] 87.0 fL Normal 83.5-101 [facility] Comment on above: Performed By: #### L IPASE, TSH3, BMP, PTT, CBC, HS TROP, BNP, CK, HEPATIC, PT #### [facility] [address] Monocyte distribution width [Entitic volume] in Blood by AutomatedOrdered By: Manuel Mccartney on 02-20-2024 Monocyte distribution width Auto (Bld) [Entitic vol] 16.28 % 0.00-20.00 [facility] Neutrophils [#/volume] in Bl ood by Automated countOrdered By: Manuel Mccartney on 02-20-2024 Neutrophils (Bld) [#/Vol] 8.3 10*3/uL High 1.8-7.7 [facility] Comment on above: Performed By: #### L IPASE, TSH3, BMP, PTT, CBC, HS TROP, BNP, CK, HEPATIC, PT #### [facility] [address] No Panel InformationOrdered By: Manuel Mccartney on 02-20-2024 Estimated GFR (CKD-EPI) > 60.0 mL/Min [facility] Creatinine Clearance (Chem 137.62 [facility] Nucleated erythrocytes [Pres ence] in Blood by Automated countOrdered By: Manuel Mccartney on 02-20-2024 Nucleated RBC Auto Ql (Bld) 0.1 /100{WBC} 0-0.5 [facility] Partial Thromboplastin Timeo n 02-20-2024 aPTT Coag (Bld) [Time] 30.0 s Normal 25.1-36.5 [facility] Comment on above: Result Comment: A he matocrit value greater than 55% may lead to inaccurate results in coagulation testing. Patients having hematocrit values >55% require a special collection tube for coagulation studies. Please contact the laboratory at [phone] for redraw instructions. PERFORMED BY: [place] [address] PATHOLOGIST [employer] HEL[employer] NINA KEATING M.D. Performed By: #### L IPASE, TSH3, BMP, PTT, CBC, HS TROP, BNP, CK, HEPATIC, PT #### [address] Platelet mean volume [Entiti c volume] in Blood by Automated countOrdered By: Manuel Mccartney on 02-20-2024 Platelet mean volume (Bld) [Entitic vol] 9.3 fL Normal 6.6-10.1 [facility] Comment on above: Performed By: #### L IPASE, TSH3, BMP, PTT, CBC, HS TROP, BNP, CK, HEPATIC, PT #### [address] Platelets [#/volume] in Bloo d by Automated countOrdered By: Manuel Mccartney on 02-20-2024 Platelets (Bld) [#/Vol] 217 10*3/uL Normal 150-450 [facility] Comment on above: Performed By: #### L IPASE, TSH3, BMP, PTT, CBC, HS TROP, BNP, CK, HEPATIC, PT #### [address] Potassium [Moles/volume] in Serum or PlasmaOrdered By: Manuel Mccartney on 02-20-2024 Potassium [Moles/Vol] 3.8 mmol/L Normal 3.5-5.1 [facility] Comment on above: Performed By: #### L IPASE, TSH3, BMP, PTT, CBC, HS TROP, BNP, CK, HEPATIC, PT #### [address] Protein [Mass/volume] in Ser um or PlasmaOrdered By: Manuel Mccartney on 02-20-2024 Protein [Mass/Vol] 8.3 g/dL Normal 6.4-8.9 [facility] Comment on above: Performed By: #### L IPASE, TSH3, BMP, PTT, CBC, HS TROP, BNP, CK, HEPATIC, PT #### [address] Prothrombin time (PT)Ordered By: Manuel Mccartney on 02-20-2024 PT Coag (PPP) [Time] 10.9 s Normal 9.0-12.9 [facility] Comment on above: A hematocrit value g reater than 55% may lead to inaccurate results in coagulation testing. Patients having hematocrit values >55% require a special collection tube for coagulation studies. Please contact the laboratory at [phone] for redraw instructions. Result Comment: A he matocrit value greater than 55% may lead to inaccurate results in coagulation testing. Patients having hematocrit values >55% require a special collection tube for coagulation studies. Please contact the laboratory at [phone] for redraw instructions. Performed By: #### L IPASE, TSH3, BMP, PTT, CBC, HS TROP, BNP, CK, HEPATIC, PT #### [address] Serum globulin measurement b y calculation (mass/volume)Ordered By: Manuel Mccartney on 02-20-2024 Globulin (S) [Mass/Vol] 3.3 g/dL [facility] Comment on above: Performed By: #### L IPASE, TSH3, BMP, PTT, CBC, HS TROP, BNP, CK, HEPATIC, PT #### [address] Serum or plasma albumin/glob ulin mass ratioOrdered By: Manuel Mccartney on 02-20-2024 Albumin/Globulin [Mass ratio] 1.5 {ratio} [facility] Comment on above: Performed By: #### L IPASE, TSH3, BMP, PTT, CBC, HS TROP, BNP, CK, HEPATIC, PT #### [address] Serum or plasma anion gap de terminationOrdered By: Manuel Mccartney on 02-20-2024 Anion gap [Moles/Vol] 12.3 mmol/L Normal 6.0-15.0 [facility] Comment on above: Performed By: #### L IPASE, TSH3, BMP, PTT, CBC, HS TROP, BNP, CK, HEPATIC, PT #### [address] Serum or plasma non-glucuron idated bilirubin measurement (mass/volume)Ordered By: Manuel Mccartney on 02-20-2024 Bilirubin.indirect [Mass/Vol] 0.5 mg/dL [facility] Sodium [Moles/volume] in Ser um or PlasmaOrdered By: Manuel Mccartney on 02-20-2024 Sodium [Moles/Vol] 139 mmol/L Normal 136-145 [facility] Comment on above: Performed By: #### L IPASE, TSH3, BMP, PTT, CBC, HS TROP, BNP, CK, HEPATIC, PT #### [address] Thyrotropin [Units/volume] i n Serum or PlasmaOrdered By: Manuel Mccartney on 02-20-2024 TSH Qn 2.00 m[IU]/L Normal 0.45-5.33 [facility] Comment on above: Result Comment: PERF ORMED BY: [place] [address] PATHOLOGIST [employer] HEL[employer] NINA KEATING M.D. Performed By: #### L IPASE, TSH3, BMP, PTT, CBC, HS TROP, BNP, CK, HEPATIC, PT #### [address] Troponin I High Sensitivityo n 02-20-2024 Troponin I High Sensitivity < 2.3 Normal 0.0-20.0 [facility] Comment on above: Result Comment: PERF ORMED BY: [place] [address] PATHOLOGIST [employer] HEL[employer] NINA KEATING M.D. Performed By: #### L IPASE, TSH3, BMP, PTT, CBC, HS TROP, BNP, CK, HEPATIC, PT #### [address] Troponin I.cardiac [Mass/vol ume] in Serum or Plasma by Detection limit <= 0.01 ng/Ordered By: Manuel Mccartney on 02-20-2024 Troponin I.cardiac DL <= 0.01 ng/mL [Mass/Vol] < 2.3 pg/mL 0.0-20.0 [facility] Urea nitrogen [Mass/volume] in Serum or PlasmaOrdered By: Manuel Mccartney on 02-20-2024 Urea nitrogen [Mass/Vol] 14 mg/dL Normal 7-25 [facility] Comment on above: Performed By: #### L IPASE, TSH3, BMP, PTT, CBC, HS TROP, BNP, CK, HEPATIC, PT #### [facility] [address] XR chest 2V*on 02-20-2024 XR chest 2V* [facility] [place] [address] XRay Report Signed Patient: Dustin Harden MR#: [id number] : 1995 Acct:[id number] Age/Sex: 29 / M ADM Date: 02/20/24 Loc: ER Room: Type: PRE ER Attending Dr: Copies to: DAVID Oh DO Ordering Provider: Manuel Mccartney DO Date of Service: 02/20/24 XR/XR chest [...] Odalis Austin M.D.02/20/2024 3:53 PM Dictation Location: [place] [address] Transcribed By: [facility] 02/20/24 1555 Dictated By: Odalis Austin MD 02/20/24 155 Signed By: 02/20/24 155 Normal [facility] Covid-19 PCR (CVDTBH)on 09-15 SARS-CoV-2 (COVID-19) RNA KOSTAS+probe Ql (Unsp spec) Not detected Normal NOT DETECTED [facility] Comment on above: Result Comment: This test is not yet approved or cleared by the [place] FDA. When there are no FDA-approved or cleared tests available, and other criteria are met, FDA can make tests available under an emergency access mechanism called an Emergency Use Authorization (EUA). The EUA for this test is supported by the [place] of Health and Human Service's (HHS's) declaration [...] consistent with SARS-CoV-2. Performed By: #### [facility] #### [facility] [address] [place] [address] [address] Kirk Matson Vital Signs Date Time Vital Sign Value Performing Clinician Hasmukh mcdonnell 03-26-2024 09:43-0400 Heart rate 53 /min MD Mark Spaulding Work Phone: [facility] 03-26-2024 09:43-0400 Respiratory rate 16 /min MD Mark Spaulding Work Phone: [facility] 03-26-2024 09:43-0400 SaO2% (BldA) [Mass fraction] 97 % MD Mark Spaulding Work Phone: [facility] 03-26-2024 07:58-0400 Body height 175.26 cm MD Mark Spaulding Work Phone: [facility] 03-26-2024 07:58-0400 Body temperature 98.4 [degF] MD Mark Spaulding Work Phone: [facility] 03-26-2024 07:58-0400 Body weight 92.2 kg MD Mark Spaulding Work Phone: [facility] 03-26-2024 07:58-0400 Diastolic blood pressure 90 mm[Hg] MD Mark Spaulding Work Phone: [facility] 03-26-2024 07:58-0400 Systolic blood pressure 134 mm[Hg] MD Mark Spaulding Work Phone: [facility] 02-20-2024 17:44-0400 Diastolic blood pressure 79 mm[Hg] MD Mark Spaulding Work Phone: [facility] 02-20-2024 17:44-0400 Heart rate 80 /min MD Mark Spaulding Work Phone: [facility] 02-20-2024 17:44-0400 Respiratory rate 20 /min MD Mark Spaulding Work Phone: [facility] 02-20-2024 17:44-0400 SaO2% (BldA) [Mass fraction] 97 % MD Mark Spaulding Work Phone: [facility] 02-20-2024 17:44-0400 Systolic blood pressure 137 mm[Hg] MD Mark Spaulding Work Phone: [facility] 02-20-2024 14:00-0400 Body height 175.26 cm MD Mark Spaulding Work Phone: [facility] 02-20-2024 14:00-0400 Body temperature 97.7 [degF] MD Mark Spaulding Work Phone: [facility] 02-20-2024 14:00-0400 Body weight 94.8 kg MD Mark Spaulding Work Phone: [facility] Encounters Encounter Date Encounter Type Care Provider Facility Start: 03-26-2024 End: 03-26-2024 Emergency department patient visit MD Mark Spaulding Work Phone: [facility] Work Phone: Start: 02-20-2024 End: 02-20-2024 Emergency department patient visit MD Mark Spaulding Work Phone: [facility] Work Phone: Start: 10-03-2021 End: 10-03-[address] JONATHON VALERO Facility:[facility] Start: 05-11-2021 End: 05-11-[address] DOCTOR HEALY Facility:[facility] Procedures Date Procedure Procedure Detail Performing Clinician Start: 03-26-2024 Plain chest X-ray MD Brown Work Phone: Start: 02-20-2024 Plain chest X-ray MD Brown Work Phone: Plan of Treatment Date Care Activity Detail Author Patient Education [facility] Work Phone: Patient referral [facility] Work Phone: Payers Date Payer Category Payer Medicaid [id number] 6e 2024 Self-pay [id number] 1995 Unknown [id number] 1995 Unknown [id number] 1959 Unknown [id number] Medicaid [place] HMO [id number] Unknown [id number] Unknown [id number] Social History Date Type Detail Facility Start: 02-20-2024 End: 03-26-2024 Tobacco smoking status NHIS Smoker (finding) [facility] Start: 1995 Sex Assigned At Male [facility] Evaluation note Note Date & Type Note Facility Evaluation note No assessment information availa [facility] Work Phone: Summary Purpose Family History No [...] and content) DATE CREATED AUTHOR 10/04/2021 [facility] DATE CREATED AUTHOR AUTHOR'S ORGANIZ ATION 04/11/2024 [facility] Care Teams (unrecognized sec tion [...] March 26, 2024 End: March 26, 2024 Juan Patterson DO Emergency Provider Active St art: March [...] BE BASED ON THE PRIMARY CLINICAL RECORDS. [facility] [employer] [facility] provides no warranty or guarantee of the accuracy or completeness of information in this document.
--- OUTSIDE RECORDS SUMMARY | 2024-05-12 11:56 | XMS_ITS | CCD ---
Author Organization [facility] Care Team Providers Care Insurance Consultant Name Role Phone PAY, DR HOLT Admitting Unavailable MISC, DR KILGORE Primary Care Unavailable PAY, DR HOLT Attending Unavailable PAY, DR HOLT Consulting Unavailable MISC, DR KILGORE Primary Care Unavailable MARKER, DR DICKENS Attending Unavailable MARKER, DR DICKENS Consulting Unavailable MARKER, DR DICKENS Admitting Unavailable MD Mark Spaulding Primary Care Provider DAVID Kelly Emergency Provider DO Juan Patterson Emergency Provider [phone] Juan Patterson Admitting Unavailable Mark Spaulding Primary [...] Coag (PPP) [Time] 28.3 s 25.1-36.[address] [facility] Comment on above: A hematocrit value g reater than 55% may lead to inaccurate results in coagulation testing. Patients having hematocrit values >55% require a special collection tube for coagulation studies. Please contact the laboratory at [phone] for redraw instructions. Alanine aminotransferase [En zymatic activity/volume] in Serum or PlasmaOrdered By: Juan Patterson on 03-26-2024 ALT [Catalytic activity/Vol] 24 U/L Normal 7-52 [facility] Comment on above: Performed By: #### L IPASE, TSH3, BMP, PTT, CBC, HS TROP, BNP, CK, HEPATIC, PT #### [facility] [address] [place] [address] [place] Albumin [Mass/volume] in Ser um or Plasma by Bromocresol green (BCG) dye binding methoOrdered By: Juan Patterson on 03-26-2024 Albumin BCG dye [Mass/Vol] 4.8 g/dL 3.5-5.7 [facility] Alkaline phosphatase [Enzyma tic activity/volume] in Serum or PlasmaOrdered By: Juan Patterson on 03-26-2024 ALP [Catalytic activity/Vol] 80 U/L Normal 34-104 [facility] Comment on above: Performed By: #### L IPASE, TSH3, BMP, PTT, CBC, HS TROP, BNP, CK, HEPATIC, PT #### [facility] [address] [place] [address] [place] Aspartate aminotransferase [ Enzymatic activity/volume] in Serum or PlasmaOrdered By: Juan Patterson on 03-26-2024 AST [Catalytic activity/Vol] 23 U/L Normal 13-39 [facility] Comment on above: Performed By: #### L IPASE, TSH3, BMP, PTT, CBC, HS TROP, BNP, CK, HEPATIC, PT #### [address] Automated basophil %Ordered By: Juan Patterson on 03-26-2024 Basophils/100 WBC (Bld) 0.6 % Normal . [facility] Comment on above: Performed By: #### L IPASE, TSH3, BMP, PTT, CBC, HS TROP, BNP, CK, HEPATIC, PT #### [address] Automated basophil countOrde red By: Juan Patterson on 03-26-2024 Basophils (Bld) [#/Vol] 0.0 10*3/uL Normal 0.0-0.2 [facility] Comment on above: Result Comment: PERF ORMED BY: [place] [address] PATHOLOGIST QUANTITATIVE SOFTWARE ENGINEER NINA KEATING M.D. Performed By: #### L IPASE, TSH3, BMP, PTT, CBC, HS TROP, BNP, CK, HEPATIC, PT #### [address] Automated blood monocyte cou ntOrdered By: Juan Patterson on 03-26-2024 Monocytes (Bld) [#/Vol] 0.6 10*3/uL Normal 0.0-0.8 [facility] Comment on above: Performed By: #### L IPASE, TSH3, BMP, PTT, CBC, HS TROP, BNP, CK, HEPATIC, PT #### [address] Automated eosinophil %Ordere d By: Juan Patterson on 03-26-2024 Eosinophils/100 WBC (Bld) 1.9 % Normal . [facility] Comment on above: Performed By: #### L IPASE, TSH3, BMP, PTT, CBC, HS TROP, BNP, CK, HEPATIC, PT #### [address] Automated eosinophil countOr dered By: Juan Patterson on 03-26-2024 Eosinophils (Bld) [#/Vol] 0.1 10*3/uL Normal 0.0-0.45 [facility] Comment on above: Performed By: #### L IPASE, TSH3, BMP, PTT, CBC, HS TROP, BNP, CK, HEPATIC, PT #### [facility] [address] Automated monocyte %Ordered By: Juan Patterson on 03-26-2024 Monocytes/100 WBC (Bld) 8.9 % Normal . [facility] Comment on above: Performed By: #### L IPASE, TSH3, BMP, PTT, CBC, HS TROP, BNP, CK, HEPATIC, PT #### [facility] [address] Automated neutrophil %Ordere d By: Juan Patterson on 03-26-2024 Neutrophils/100 WBC (Bld) 65.5 % Normal . [facility] Comment on above: Performed By: #### L IPASE, TSH3, BMP, PTT, CBC, HS TROP, BNP, CK, HEPATIC, PT #### [facility] [address] Bilirubin.total [Mass/volume ] in Serum or PlasmaOrdered By: Juan Patterson on 03-26-2024 Bilirubin [Mass/Vol] 0.8 mg/dL Normal 0.3-1.0 [facility] Comment on above: Performed By: #### L IPASE, TSH3, BMP, PTT, CBC, HS TROP, BNP, CK, HEPATIC, PT #### [facility] [address] Calcium [Mass/volume] in Ser um or PlasmaOrdered By: Juan Patterson on 03-26-2024 Calcium [Mass/Vol] 10.1 mg/dL Normal 8.6-10.3 [facility] Comment on above: Performed By: #### L IPASE, TSH3, BMP, PTT, CBC, HS TROP, BNP, CK, HEPATIC, PT #### [address] Carbon dioxide, total [Moles /volume] in Serum or PlasmaOrdered By: Juan Patterson on 03-26-2024 CO2 [Moles/Vol] 24.0 mmol/L Normal 21.0-31.0 [facility] Comment on above: Performed By: #### L IPASE, TSH3, BMP, PTT, CBC, HS TROP, BNP, CK, HEPATIC, PT #### [address] Chloride [Moles/volume] in S germaine or PlasmaOrdered By: Juan Patterson on 03-26-2024 Chloride [Moles/Vol] 104 mmol/L Normal 98-107 [facility] Comment on above: Performed By: #### L IPASE, TSH3, BMP, PTT, CBC, HS TROP, BNP, CK, HEPATIC, PT #### [address] Complete Blood Count Auto Di ffon 03-26-2024 Mean Corpuscular HGB Conc 34.8 g/dL Normal 32.5-35.6 [facility] Comment on above: Performed By: #### L IPASE, TSH3, BMP, PTT, CBC, HS TROP, BNP, CK, HEPATIC, PT #### [address] Monocytes/100 WBC (Bld) 16.49 % Normal 0.00-20.00 [facility] Comment on above: Performed By: #### L IPASE, TSH3, BMP, PTT, CBC, HS TROP, BNP, CK, HEPATIC, PT #### [address] NRBC% 0.2 /100{WBC} Normal 0-0.5 [facility] Comment on above: Performed By: #### L IPASE, TSH3, BMP, PTT, CBC, HS TROP, BNP, CK, HEPATIC, PT #### [address] Comprehensive Metabolic Pane annette 03-26-2024 Albumin [Mass/Vol] 4.8 g/dL Normal 3.5-5.7 [facility] Comment on above: Performed By: #### L IPASE, TSH3, BMP, PTT, CBC, HS TROP, BNP, CK, HEPATIC, PT #### [address] [place] [address] [place] Creatinine Clr Calc Pharmacy 158.77 Normal [facility] Comment on above: Performed By: #### L IPASE, TSH3, BMP, PTT, CBC, HS TROP, BNP, CK, HEPATIC, PT #### [facility] [address] [place] [address] [place] GFR/1.73 sq M.predicted MDRD (S/P/Bld) [Vol rate/Area] mL/min/{1.73_m2} Normal [facility] Comment on above: Performed By: #### L IPASE, TSH3, BMP, PTT, CBC, HS TROP, BNP, CK, HEPATIC, PT #### [facility] [address] Creatine kinase [Enzymatic a ctivity/volume] in Serum or PlasmaOrdered By: Juan Patterson on 03-26-2024 CK [Catalytic activity/Vol] 122 U/L Normal 30-223 [facility] Comment on above: Performed By: #### L IPASE, TSH3, BMP, PTT, CBC, HS TROP, BNP, CK, HEPATIC, PT #### [facility] [address] [place] [address] [place] Creatinine [Mass/volume] in Serum or PlasmaOrdered By: Juan Patterson on 03-26-2024 Creatinine [Mass/Vol] 0.77 mg/dL Normal 0.70-1.30 [facility] Comment on above: Performed By: #### L IPASE, TSH3, BMP, PTT, CBC, HS TROP, BNP, CK, HEPATIC, PT #### [facility] [address] [place] [id number] [place] ECG 12 lead ECGon 03-26-2024 ECG 12 lead ECG [facility] [employer] [address] [place] [address] Electrocardiograph Report Signed Patient: Dustin Harden MR#: [id number] : 1995 Acct:[id number] Age/Sex: 29 / M ADM Date: 03/26/24 Loc: ER Room: Type: [facility] ER Attending Dr: Ordering Provider: Juan Patterson [...] Patterson DO 1437 Normal [facility] Erythrocyte distribution wid th [Ratio] by Automated countOrdered By: Juan Patterson on 03-26-2024 Erythrocyte distribution width (RBC) [Ratio] 13.4 % Normal 12.0-14.8 [facility] Comment on above: Performed By: #### L IPASE, TSH3, BMP, PTT, CBC, HS TROP, BNP, CK, HEPATIC, PT #### [facility] [address] Erythrocytes [#/volume] in B lood by Automated countOrdered By: Juan Patterson on 03-26-2024 RBC (Bld) [#/Vol] 5.28 10*6/uL Normal 3.90-5.60 [facility] Comment on above: Performed By: #### L IPASE, TSH3, BMP, PTT, CBC, HS TROP, BNP, CK, HEPATIC, PT #### [facility] [address] [place] [address] [place] Glucose [Mass/volume] in Ser um or PlasmaOrdered By: Juan Patterson on 03-26-2024 Glucose [Mass/Vol] 98 mg/dL Normal 70-100 [facility] Comment on above: ADA recommended refe rence rangeRandom Glucose Reference Range is dependent on time and content of last meal. Glucose of more than 200 mg/dL in a nonstressed, ambulatory subject supports the diagnosis of Diabetes Mellitus. Result Comment: [facility] Glucose Reference Range is dependent on time and content of last meal. Glucose of more than 200 mg/dL in a nonstressed, ambulatory subject supports the diagnosis of Diabetes Mellitus. ADA recommended reference range Performed By: #### L IPASE, TSH3, BMP, PTT, CBC, HS TROP, BNP, CK, HEPATIC, PT #### [facility] [address] Hematocrit [Volume Fraction] of Blood by Automated countOrdered By: Juan Patterson on 03-26-2024 Hematocrit (Bld) [Volume fraction] 46.2 % Normal 38.8-50.0 [facility] Comment on above: Performed By: #### L IPASE, TSH3, BMP, PTT, CBC, HS TROP, BNP, CK, HEPATIC, PT #### [address] Hemoglobin [Mass/volume] in BloodOrdered By: Juan Patterson on 03-26-2024 Hemoglobin (Bld) [Mass/Vol] 16.1 g/dL Normal 13.0-17.0 [facility] Comment on above: Performed By: #### L IPASE, TSH3, BMP, PTT, CBC, HS TROP, BNP, CK, HEPATIC, PT #### [address] INR in Platelet poor plasma by Coagulation assayOrdered By: Juan Patterson on 03-26-2024 INR Coag (PPP) [Relative time] 1.0 {INR} Normal [facility] Comment on above: INR Therapeutic Rang e [...] HS TROP, BNP, CK, HEPATIC, PT #### [address] Leukocytes [#/volume] correc modesta for nucleated erythrocytes in Blood by Automated counOrdered By: Juan Patterson on 03-26-2024 WBC corrected for nucl RBC Auto (Bld) [#/Vol] 6.2 10*3/uL 4.1-10.5 [facility] Leukocytes [#/volume] in Blo od by Automated countOrdered By: Juan Patterson on 03-26-2024 WBC (Bld) [#/Vol] 6.2 10*3/uL Normal 4.1-10.5 [facility] Comment on above: Performed By: #### L IPASE, TSH3, BMP, PTT, CBC, HS TROP, BNP, CK, HEPATIC, PT #### [address] Lymphocytes [#/volume] in Bl ood by Automated countOrdered By: Juan Patterson on 03-26-2024 Lymphocytes (Bld) [#/Vol] 1.4 10*3/uL Normal 1.00-4.8 [facility] Comment on above: Performed By: #### L IPASE, TSH3, BMP, PTT, CBC, HS TROP, BNP, CK, HEPATIC, PT #### [place] [address] [place] Lymphocytes/100 leukocytes i n Blood by Automated countOrdered By: Juan Patterson on 03-26-2024 Lymphocytes/100 WBC (Bld) 23.1 % Normal . [facility] Comment on above: Performed By: #### L IPASE, TSH3, BMP, PTT, CBC, HS TROP, BNP, CK, HEPATIC, PT #### [place] [address] [place] MCH [Entitic mass] by Automa modesta countOrdered By: Juan Patterson on 03-26-2024 MCH (RBC) [Entitic mass] 30.5 pg Normal 27.5-35.2 [facility] Comment on above: Performed By: #### L IPASE, TSH3, BMP, PTT, CBC, HS TROP, BNP, CK, HEPATIC, PT #### [facility] [address] MCHC Auto (RBC) [Mass/Vol]Or dered By: Juan Patterson on 03-26-2024 MCHC (RBC) [Mass/Vol] 34.8 g/dL 32.5-35.6 [facility] MCV [Entitic volume] by Auto mated countOrdered By: Juan Patterson on 03-26-2024 MCV (RBC) [Entitic vol] 87.6 fL Normal 83.5-101 [facility] Comment on above: Performed By: #### L IPASE, TSH3, BMP, PTT, CBC, HS TROP, BNP, CK, HEPATIC, PT #### [facility] [address] Magnesium [Mass/volume] in S germaine or PlasmaOrdered By: Juan Patterson on 03-26-2024 Magnesium [Mass/Vol] 1.8 mg/dL Low 1.9-2.7 [facility] Comment on above: Result Comment: PERF ORMED BY: [place] [address] PATHOLOGIST QUANTITATIVE SOFTWARE ENGINEER NINA KEATING M.D. Performed By: #### L IPASE, TSH3, BMP, PTT, CBC, HS TROP, BNP, CK, HEPATIC, PT #### [facility] [address] Monocyte distribution width [Entitic volume] in Blood by AutomatedOrdered By: Juan Patterson on 03-26-2024 Monocyte distribution width Auto (Bld) [Entitic vol] 16.49 % 0.00-20.00 [facility] Neutrophils [#/volume] in Bl ood by Automated countOrdered By: Juan Patterson on 03-26-2024 Neutrophils (Bld) [#/Vol] 4.1 10*3/uL Normal 1.8-7.7 [facility] Comment on above: Performed By: #### L IPASE, TSH3, BMP, PTT, CBC, HS TROP, BNP, CK, HEPATIC, PT #### [facility] [address] [place] [address] No Panel InformationOrdered By: Juan Patterson on 03-26-2024 Estimated GFR (CKD-EPI) > 60.0 mL/Min [facility] Creatinine Clearance (Chem 158.77 [facility] Nucleated erythrocytes [Pres ence] in Blood by Automated countOrdered By: Juan Patterson on 03-26-2024 Nucleated RBC Auto Ql (Bld) 0.2 /100{WBC} 0-0.5 [facility] Partial Thromboplastin Timeo n 03-26-2024 aPTT Coag (Bld) [Time] 28.3 s Normal 25.1-36.5 [facility] Comment on above: Result Comment: A he matocrit value greater than 55% may lead to inaccurate results in coagulation testing. Patients having hematocrit values >55% require a special collection tube for coagulation studies. Please contact the laboratory at [phone] for redraw instructions. PERFORMED BY: [place] [address] PATHOLOGIST QUANTITATIVE SOFTWARE ENGINEER NINA KEATING M.D. Performed By: #### L IPASE, TSH3, BMP, PTT, CBC, HS TROP, BNP, CK, HEPATIC, PT #### [address] Platelet mean volume [Entiti c volume] in Blood by Automated countOrdered By: Juan Patterson on 03-26-2024 Platelet mean volume (Bld) [Entitic vol] 9.2 fL Normal 6.6-10.1 [facility] Comment on above: Performed By: #### L IPASE, TSH3, BMP, PTT, CBC, HS TROP, BNP, CK, HEPATIC, PT #### [address] Platelets [#/volume] in Bloo d by Automated countOrdered By: Juan Patterson on 03-26-2024 Platelets (Bld) [#/Vol] 210 10*3/uL Normal 150-450 [facility] Comment on above: Performed By: #### L IPASE, TSH3, BMP, PTT, CBC, HS TROP, BNP, CK, HEPATIC, PT #### [facility] [address] Potassium [Moles/volume] in Serum or PlasmaOrdered By: Juan Patterson on 03-26-2024 Potassium [Moles/Vol] 3.9 mmol/L Normal 3.5-5.1 [facility] Comment on above: Performed By: #### L IPASE, TSH3, BMP, PTT, CBC, HS TROP, BNP, CK, HEPATIC, PT #### [facility] [address] Protein [Mass/volume] in Ser um or PlasmaOrdered By: Juan Patterson on 03-26-2024 Protein [Mass/Vol] 8.0 g/dL Normal 6.4-8.9 [facility] Comment on above: Performed By: #### L IPASE, TSH3, BMP, PTT, CBC, HS TROP, BNP, CK, HEPATIC, PT #### [facility] [address] Prothrombin time (PT)Ordered By: Juan Patterson on 03-26-2024 PT Coag (PPP) [Time] 11.1 s Normal 9.0-12.9 [facility] Comment on above: A hematocrit value g reater than 55% may lead to inaccurate results in coagulation testing. Patients having hematocrit values >55% require a special collection tube for coagulation studies. Please contact the laboratory at [phone] for redraw instructions. Result Comment: A he matocrit value greater than 55% may lead to inaccurate results in coagulation testing. Patients having hematocrit values >55% require a special collection tube for coagulation studies. Please contact the laboratory at [phone] for redraw instructions. Performed By: #### L IPASE, TSH3, BMP, PTT, CBC, HS TROP, BNP, CK, HEPATIC, PT #### [facility] [address] Serum globulin measurement b y calculation (mass/volume)Ordered By: Juan Patterson on 03-26-2024 Globulin (S) [Mass/Vol] 3.2 g/dL [facility] Comment on above: Performed By: #### L IPASE, TSH3, BMP, PTT, CBC, HS TROP, BNP, CK, HEPATIC, PT #### [facility] [address] [place] [address] Serum or plasma albumin/glob ulin mass ratioOrdered By: Juan Patterson on 03-26-2024 Albumin/Globulin [Mass ratio] 1.5 {ratio} [facility] Comment on above: Performed By: #### L IPASE, TSH3, BMP, PTT, CBC, HS TROP, BNP, CK, HEPATIC, PT #### [facility] [address] [place] [address] Serum or plasma anion gap de terminationOrdered By: Juan Patterson on 03-26-2024 Anion gap [Moles/Vol] 13.9 mmol/L Normal 6.0-15.[address] [facility] Comment on above: Performed By: #### L IPASE, TSH3, BMP, PTT, CBC, HS TROP, BNP, CK, HEPATIC, PT #### [facility] [address] [place] [address] Sodium [Moles/volume] in Ser um or PlasmaOrdered By: Juan Patterson on 03-26-2024 Sodium [Moles/Vol] 138 mmol/L Normal 136-145 [facility] Comment on above: Performed By: #### L IPASE, TSH3, BMP, PTT, CBC, HS TROP, BNP, CK, HEPATIC, PT #### [facility] [address] [place] [address] Troponin I High Sensitivityo n 03-26-2024 Troponin I High Sensitivity < 2.3 Normal 0.0-20.0 [facility] Comment on above: Result Comment: PERF ORMED BY: [place] [address] PATHOLOGIST QUANTITATIVE SOFTWARE ENGINEER NINA KEATING M.D. Performed By: #### L IPASE, TSH3, BMP, PTT, CBC, HS TROP, BNP, CK, HEPATIC, PT #### [facility] [address] Troponin I.cardiac [Mass/vol ume] in Serum or Plasma by Detection limit <= 0.01 ng/Ordered By: Juan Patterson on 03-26-2024 Troponin I.cardiac DL <= 0.01 ng/mL [Mass/Vol] < 2.3 pg/mL 0.0-20.0 [facility] Urea nitrogen [Mass/volume] in Serum or PlasmaOrdered By: Juan Patterson on 03-26-2024 Urea nitrogen [Mass/Vol] 15 mg/dL Normal 7-25 [facility] Comment on above: Performed By: #### L IPASE, TSH3, BMP, PTT, CBC, HS TROP, BNP, CK, HEPATIC, PT #### [facility] [address] [place] [address] XR chest 1V portableon 03-26 XR chest 1V portable [facility] [place] [address] XRay Report Signed Patient: Dustin Harden MR#: [id number] : 1995 Acct:[id number] Age/Sex: 29 / M ADM Date: 03/26/24 Loc: ER Room: Type: [facility] ER Attending Dr: Copies to: Juan Patterson DO Ordering Provider: Juan Patterson DO Date of Service: 03/26/24 XR/XR chest 1V portable: Arrhythmia/Palpitations SINGLE VIEW CHEST CLINICAL HISTORY: Arrhythmia palpitations congestion COMPARISON: Chest 02/20/2024 FINDINGS: Heart normal in size. Lungs are clear. No free air. XR/XR chest 1V portable IMPRESSION: NO ACUTE FINDINGS Impression dictated by: Gallo Urban Jr., D.OLeroy03/26/2024 8:53 AM Dictation Location: [place] [address] Transcribed By: [facility] 03/26/24 0853 Dictated By: Gallo Urban Jr, DO 03/26/24 0847 Signed By: 06/12/24 0853 Normal [facility] Activated partial thrombopla stin time (aPTT) in platelet poor plasma by coagulation aOrdered By: Manuel Mccartney on 02-20-2024 aPTT Coag (PPP) [Time] 30.0 s 25.1-36.[address] [facility] Comment on above: A hematocrit value g reater than 55% may lead to inaccurate results in coagulation testing. Patients having hematocrit values >55% require a special collection tube for coagulation studies. Please contact the laboratory at [phone] for redraw instructions. Alanine aminotransferase [En zymatic activity/volume] in Serum or PlasmaOrdered By: Manuel Mccartney on 02-20-2024 ALT [Catalytic activity/Vol] 36 U/L Normal 7-52 [facility] Comment on above: Performed By: #### L IPASE, TSH3, BMP, PTT, CBC, HS TROP, BNP, CK, HEPATIC, PT #### [facility] [address] [place] [address] [place] Albumin [Mass/volume] in Ser um or Plasma by Bromocresol green (BCG) dye binding methoOrdered By: Manuel Mccartney on 02-20-2024 Albumin BCG dye [Mass/Vol] 5.0 g/dL 3.5-5.7 [facility] Alkaline phosphatase [Enzyma tic activity/volume] in Serum or PlasmaOrdered By: Manuel Mccartney on 02-20-2024 ALP [Catalytic activity/Vol] 76 U/L Normal 34-104 [facility] Comment on above: Performed By: #### L IPASE, TSH3, BMP, PTT, CBC, HS TROP, BNP, CK, HEPATIC, PT #### [facility] [address] [place] [address] [place] Aspartate aminotransferase [ Enzymatic activity/volume] in Serum or PlasmaOrdered By: Manuel Mccartney on 02-20-2024 AST [Catalytic activity/Vol] 26 U/L Normal 13-39 [facility] Comment on above: Performed By: #### L IPASE, TSH3, BMP, PTT, CBC, HS TROP, BNP, CK, HEPATIC, PT #### [facility] [address] [place] [id number] [place] Automated basophil %Ordered By: Manuel Mccartney on 02-20-2024 Basophils/100 WBC (Bld) 0.5 % Normal . [facility] Comment on above: Performed By: #### L IPASE, TSH3, BMP, PTT, CBC, HS TROP, BNP, CK, HEPATIC, PT #### [address] Automated basophil countOrde red By: Manuel Mccartney on 02-20-2024 Basophils (Bld) [#/Vol] 0.1 10*3/uL Normal 0.0-0.2 [facility] Comment on above: Result Comment: PERF ORMED BY: [place] [address] PATHOLOGIST QUANTITATIVE SOFTWARE ENGINEER NINA KEATING M.D. Performed By: #### L IPASE, TSH3, BMP, PTT, CBC, HS TROP, BNP, CK, HEPATIC, PT #### [address] Automated blood monocyte cou ntOrdered By: Manuel Mccartney on 02-20-2024 Monocytes (Bld) [#/Vol] 0.8 10*3/uL Normal 0.0-0.8 [facility] Comment on above: Performed By: #### L IPASE, TSH3, BMP, PTT, CBC, HS TROP, BNP, CK, HEPATIC, PT #### [address] Automated eosinophil %Ordere d By: Manuel Mccartney on 02-20-2024 Eosinophils/100 WBC (Bld) 0.6 % Normal . [facility] Comment on above: Performed By: #### L IPASE, TSH3, BMP, PTT, CBC, HS TROP, BNP, CK, HEPATIC, PT #### [address] Automated eosinophil countOr dered By: Manuel Mccartney on 02-20-2024 Eosinophils (Bld) [#/Vol] 0.1 10*3/uL Normal 0.0-0.45 [facility] Comment on above: Performed By: #### L IPASE, TSH3, BMP, PTT, CBC, HS TROP, BNP, CK, HEPATIC, PT #### [address] Automated monocyte %Ordered By: Manuel Mccartney on 02-20-2024 Monocytes/100 WBC (Bld) 7.3 % Normal . [facility] Comment on above: Performed By: #### L IPASE, TSH3, BMP, PTT, CBC, HS TROP, BNP, CK, HEPATIC, PT #### [address] Automated neutrophil %Ordere d By: Manuel Mccartney on 02-20-2024 Neutrophils/100 WBC (Bld) 79.8 % Normal . [facility] Comment on above: Performed By: #### L IPASE, TSH3, BMP, PTT, CBC, HS TROP, BNP, CK, HEPATIC, PT #### [address] BNP ser/plasOrdered By: Manuel Mccartney on 02-20-2024 Natriuretic peptide B (Bld) [Mass/Vol] 7.0 pg/mL Normal 5-100 [facility] Comment on above: Result Comment: PERF ORMED BY: [place] [address] PATHOLOGIST QUANTITATIVE SOFTWARE ENGINEER NINA KEATING M.D. Performed By: #### L IPASE, TSH3, BMP, PTT, CBC, HS TROP, BNP, CK, HEPATIC, PT #### [address] Basic Metabolic Panelon 05-0 Creatinine Clr Calc Pharmacy 137.62 Normal [facility] Comment on above: Performed By: #### L IPASE, TSH3, BMP, PTT, CBC, HS TROP, BNP, CK, HEPATIC, PT #### [address] GFR/1.73 sq M.predicted MDRD (S/P/Bld) [Vol rate/Area] mL/min/{1.73_m2} Normal [facility] Comment on above: Performed By: #### L IPASE, TSH3, BMP, PTT, CBC, HS TROP, BNP, CK, HEPATIC, PT #### [facility] [address] Bilirubin.direct [Mass/volum e] in Serum or PlasmaOrdered By: Manuel Mccartney on 02-20-2024 Bilirubin.direct [Mass/Vol] 0.10 mg/dL 0.03-0.18 [facility] Bilirubin.total [Mass/volume ] in Serum or PlasmaOrdered By: Manuel Mccartney on 02-20-2024 Bilirubin [Mass/Vol] 0.6 mg/dL Normal 0.3-1.0 [facility] Comment on above: Performed By: #### L IPASE, TSH3, BMP, PTT, CBC, HS TROP, BNP, CK, HEPATIC, PT #### [facility] [address] Calcium [Mass/volume] in Ser um or PlasmaOrdered By: Manuel Mccarntey on 02-20-2024 Calcium [Mass/Vol] 10.1 mg/dL Normal 8.6-10.3 [facility] Comment on above: Performed By: #### L IPASE, TSH3, BMP, PTT, CBC, HS TROP, BNP, CK, HEPATIC, PT #### [facility] [address] Carbon dioxide, total [Moles /volume] in Serum or PlasmaOrdered By: Manuel Mccartney on 02-20-2024 CO2 [Moles/Vol] 25.5 mmol/L Normal 21.0-31.0 [facility] Comment on above: Performed By: #### L IPASE, TSH3, BMP, PTT, CBC, HS TROP, BNP, CK, HEPATIC, PT #### [facility] [address] [place] [address] [place] Chloride [Moles/volume] in S germaine or PlasmaOrdered By: Manuel Mccartney on 02-20-2024 Chloride [Moles/Vol] 105 mmol/L Normal 98-107 [facility] Comment on above: Performed By: #### L IPASE, TSH3, BMP, PTT, CBC, HS TROP, BNP, CK, HEPATIC, PT #### [address] Complete Blood Count Auto Di ffon 02-20-2024 Mean Corpuscular HGB Conc 34.4 g/dL Normal 32.5-35.6 [facility] Comment on above: Performed By: #### L IPASE, TSH3, BMP, PTT, CBC, HS TROP, BNP, CK, HEPATIC, PT #### [address] Monocytes/100 WBC (Bld) 16.28 % Normal 0.00-20.00 [facility] Comment on above: Performed By: #### L IPASE, TSH3, BMP, PTT, CBC, HS TROP, BNP, CK, HEPATIC, PT #### [address] NRBC% 0.1 /100{WBC} Normal 0-0.5 [facility] Comment on above: Performed By: #### L IPASE, TSH3, BMP, PTT, CBC, HS TROP, BNP, CK, HEPATIC, PT #### [address] Creatine kinase [Enzymatic a ctivity/volume] in Serum or PlasmaOrdered By: Manuel Mccartney on 02-20-2024 CK [Catalytic activity/Vol] 100 U/L Normal 30-223 [facility] Comment on above: Performed By: #### L IPASE, TSH3, BMP, PTT, CBC, HS TROP, BNP, CK, HEPATIC, PT #### [address] Creatinine [Mass/volume] in Serum or PlasmaOrdered By: Manuel Mccartney on 02-20-2024 Creatinine [Mass/Vol] 0.90 mg/dL Normal 0.70-1.30 [facility] Comment on above: Performed By: #### L IPASE, TSH3, BMP, PTT, CBC, HS TROP, BNP, CK, HEPATIC, PT #### [address] ECG 12 lead ECGon 02-20-2024 ECG 12 lead ECG [facility] [place] [address] Electrocardiograph Report Signed Patient: Dustin Harden MR#: [id number] : 1995 Acct:[id number] Age/Sex: 29 / M ADM Date: 02/20/24 [...] ECGs available Confirmed by MANUEL MCCARTNEY DO ([id number]) on 02/20/2024 3:42:48 PM Referred By: Electronically Signed By:MANUEL MCCARTNEY DO Transcribed By: MUS Signed By Manuel Mccartney DO 02/19 1542 Normal [facility] Erythrocyte distribution wid th [Ratio] by Automated countOrdered By: Manuel Mccartney on 02-20-2024 Erythrocyte distribution width (RBC) [Ratio] 13.2 % Normal 12.0-14.8 [facility] Comment on above: Performed By: #### L IPASE, TSH3, BMP, PTT, CBC, HS TROP, BNP, CK, HEPATIC, PT #### [facility] [address] [place] [address] [place] Erythrocytes [#/volume] in B lood by Automated countOrdered By: Manuel Mccartney on 02-20-2024 RBC (Bld) [#/Vol] 5.47 10*6/uL Normal 3.90-5.60 [facility] Comment on above: Performed By: #### L IPASE, TSH3, BMP, PTT, CBC, HS TROP, BNP, CK, HEPATIC, PT #### [facility] [address] [place] [address] [place] Glucose [Mass/volume] in Ser um or PlasmaOrdered By: Manuel Mccartney on 02-20-2024 Glucose [Mass/Vol] 96 mg/dL Normal 70-100 [facility] Comment on above: ADA recommended refe rence rangeRandom Glucose Reference Range is dependent on time and content of last meal. Glucose of more than 200 mg/dL in a nonstressed, ambulatory subject supports the diagnosis of Diabetes Mellitus. Result Comment: [place] om Glucose Reference Range is dependent on time and content of last meal. Glucose of more than 200 mg/dL in a nonstressed, ambulatory subject supports the diagnosis of Diabetes Mellitus. ADA recommended reference range Performed By: #### L IPASE, TSH3, BMP, PTT, CBC, HS TROP, BNP, CK, HEPATIC, PT #### [address] Hematocrit [Volume Fraction] of Blood by Automated countOrdered By: Manuel Mccartney on 02-20-2024 Hematocrit (Bld) [Volume fraction] 47.6 % Normal 38.8-50.0 [facility] Comment on above: Performed By: #### L IPASE, TSH3, BMP, PTT, CBC, HS TROP, BNP, CK, HEPATIC, PT #### [address] Hemoglobin [Mass/volume] in BloodOrdered By: Manuel Mccartney on 02-20-2024 Hemoglobin (Bld) [Mass/Vol] 16.4 g/dL Normal 13.0-17.0 [facility] Comment on above: Performed By: #### L IPASE, TSH3, BMP, PTT, CBC, HS TROP, BNP, CK, HEPATIC, PT #### [address] Hepatic Panelon 02-20-2024 Albumin [Mass/Vol] 5.0 g/dL Normal 3.5-5.7 [facility] Comment on above: Performed By: #### L IPASE, TSH3, BMP, PTT, CBC, HS TROP, BNP, CK, HEPATIC, PT #### [address] Bilirubin,Indirect 0.5 mg/dL Normal [facility] Comment on above: Performed By: #### L IPASE, TSH3, BMP, PTT, CBC, HS TROP, BNP, CK, HEPATIC, PT #### [facility] [address] Bilirubin.indirect [Mass/Vol] 0.10 mg/dL Normal 0.03-0.18 [facility] Comment on above: Performed By: #### L IPASE, TSH3, BMP, PTT, CBC, HS TROP, BNP, CK, HEPATIC, PT #### [facility] [address] INR in Platelet poor plasma by Coagulation assayOrdered By: Manuel Mccartney on 02-20-2024 INR Coag (PPP) [Relative time] 0.9 {INR} Normal [facility] Comment on above: INR Therapeutic Rang e [...] HS TROP, BNP, CK, HEPATIC, PT #### [facility] [address] Leukocytes [#/volume] correc [place] for nucleated erythrocytes in Blood by Automated counOrdered By: Manuel Mccartney on 02-20-2024 WBC corrected for nucl RBC Auto (Bld) [#/Vol] 10.4 10*3/uL 4.1-10.5 [facility] Leukocytes [#/volume] in Blo od by Automated countOrdered By: Manuel Mccartney on 02-20-2024 WBC (Bld) [#/Vol] 10.4 10*3/uL Normal 4.1-10.5 [facility] Comment on above: Performed By: #### L IPASE, TSH3, BMP, PTT, CBC, HS TROP, BNP, CK, HEPATIC, PT #### [facility] [address] Lipase [Enzymatic activity/v olume] in Serum or PlasmaOrdered By: Manuel Mccartney on 02-20-2024 Lipase [Catalytic activity/Vol] 6.0 U/L Low 11.0-82.0 [facility] Comment on above: Performed By: #### L IPASE, TSH3, BMP, PTT, CBC, HS TROP, BNP, CK, HEPATIC, PT #### [address] Lymphocytes [#/volume] in Bl ood by Automated countOrdered By: Manuel Mccartney on 02-20-2024 Lymphocytes (Bld) [#/Vol] 1.2 10*3/uL Normal 1.00-4.8 [facility] Comment on above: Performed By: #### L IPASE, TSH3, BMP, PTT, CBC, HS TROP, BNP, CK, HEPATIC, PT #### [address] Lymphocytes/100 leukocytes i n Blood by Automated countOrdered By: Manuel Mccartney on 02-20-2024 Lymphocytes/100 WBC (Bld) 11.8 % Normal . [facility] Comment on above: Performed By: #### L IPASE, TSH3, BMP, PTT, CBC, HS TROP, BNP, CK, HEPATIC, PT #### [address] MCH [Entitic mass] by Automa [place] countOrdered By: Manuel Mccartney on 02-20-2024 MCH (RBC) [Entitic mass] 29.9 pg Normal 27.5-35.2 [facility] Comment on above: Performed By: #### L IPASE, TSH3, BMP, PTT, CBC, HS TROP, BNP, CK, HEPATIC, PT #### [address] MCHC Auto (RBC) [Mass/Vol]Or dered By: Manuel Mccartney on 02-20-2024 MCHC (RBC) [Mass/Vol] 34.4 g/dL 32.5-35.6 [facility] MCV [Entitic volume] by Auto mated countOrdered By: Manuel Mccartney on 02-20-2024 MCV (RBC) [Entitic vol] 87.0 fL Normal 83.5-101 [facility] Comment on above: Performed By: #### L IPASE, TSH3, BMP, PTT, CBC, HS TROP, BNP, CK, HEPATIC, PT #### [facility] [address] Monocyte distribution width [Entitic volume] in Blood by AutomatedOrdered By: Manuel Mccartney on 02-20-2024 Monocyte distribution width Auto (Bld) [Entitic vol] 16.28 % 0.00-20.00 [facility] Neutrophils [#/volume] in Bl ood by Automated countOrdered By: Manuel Mccartney on 02-20-2024 Neutrophils (Bld) [#/Vol] 8.3 10*3/uL High 1.8-7.7 [facility] Comment on above: Performed By: #### L IPASE, TSH3, BMP, PTT, CBC, HS TROP, BNP, CK, HEPATIC, PT #### [facility] [address] No Panel InformationOrdered By: Manuel Mccartney on 02-20-2024 Estimated GFR (CKD-EPI) > 60.0 mL/Min [facility] Creatinine Clearance (Chem 137.62 [facility] Nucleated erythrocytes [Pres ence] in Blood by Automated countOrdered By: Manuel Mccartney on 02-20-2024 Nucleated RBC Auto Ql (Bld) 0.1 /100{WBC} 0-0.5 [facility] Partial Thromboplastin Timeo n 02-20-2024 aPTT Coag (Bld) [Time] 30.0 s Normal 25.1-36.5 [facility] Comment on above: Result Comment: A he matocrit value greater than 55% may lead to inaccurate results in coagulation testing. Patients having hematocrit values >55% require a special collection tube for coagulation studies. Please contact the laboratory at [phone] for redraw instructions. PERFORMED BY: [place] [address] PATHOLOGIST QUANTITATIVE SOFTWARE ENGINEER NINA KEATING M.D. Performed By: #### L IPASE, TSH3, BMP, PTT, CBC, HS TROP, BNP, CK, HEPATIC, PT #### [address] Platelet mean volume [Entiti c volume] in Blood by Automated countOrdered By: Manuel Mccartney on 02-20-2024 Platelet mean volume (Bld) [Entitic vol] 9.3 fL Normal 6.6-10.1 [facility] Comment on above: Performed By: #### L IPASE, TSH3, BMP, PTT, CBC, HS TROP, BNP, CK, HEPATIC, PT #### [address] Platelets [#/volume] in Bloo d by Automated countOrdered By: Manuel Mccartney on 02-20-2024 Platelets (Bld) [#/Vol] 217 10*3/uL Normal 150-450 [facility] Comment on above: Performed By: #### L IPASE, TSH3, BMP, PTT, CBC, HS TROP, BNP, CK, HEPATIC, PT #### [address] Potassium [Moles/volume] in Serum or PlasmaOrdered By: Manuel Mccartney on 02-20-2024 Potassium [Moles/Vol] 3.8 mmol/L Normal 3.5-5.1 [facility] Comment on above: Performed By: #### L IPASE, TSH3, BMP, PTT, CBC, HS TROP, BNP, CK, HEPATIC, PT #### [address] Protein [Mass/volume] in Ser um or PlasmaOrdered By: Manuel Mccartney on 02-20-2024 Protein [Mass/Vol] 8.3 g/dL Normal 6.4-8.9 [facility] Comment on above: Performed By: #### L IPASE, TSH3, BMP, PTT, CBC, HS TROP, BNP, CK, HEPATIC, PT #### [address] Prothrombin time (PT)Ordered By: Manuel Mccartney on 02-20-2024 PT Coag (PPP) [Time] 10.9 s Normal 9.0-12.9 [facility] Comment on above: A hematocrit value g reater than 55% may lead to inaccurate results in coagulation testing. Patients having hematocrit values >55% require a special collection tube for coagulation studies. Please contact the laboratory at [phone] for redraw instructions. Result Comment: A he matocrit value greater than 55% may lead to inaccurate results in coagulation testing. Patients having hematocrit values >55% require a special collection tube for coagulation studies. Please contact the laboratory at [phone] for redraw instructions. Performed By: #### L IPASE, TSH3, BMP, PTT, CBC, HS TROP, BNP, CK, HEPATIC, PT #### [address] Serum globulin measurement b y calculation (mass/volume)Ordered By: Manuel Mccartney on 02-20-2024 Globulin (S) [Mass/Vol] 3.3 g/dL [facility] Comment on above: Performed By: #### L IPASE, TSH3, BMP, PTT, CBC, HS TROP, BNP, CK, HEPATIC, PT #### [address] Serum or plasma albumin/glob ulin mass ratioOrdered By: Manuel Mccartney on 02-20-2024 Albumin/Globulin [Mass ratio] 1.5 {ratio} [facility] Comment on above: Performed By: #### L IPASE, TSH3, BMP, PTT, CBC, HS TROP, BNP, CK, HEPATIC, PT #### [address] Serum or plasma anion gap de terminationOrdered By: Manuel Mccartney on 02-20-2024 Anion gap [Moles/Vol] 12.3 mmol/L Normal 6.0-15.[address] [facility] Comment on above: Performed By: #### L IPASE, TSH3, BMP, PTT, CBC, HS TROP, BNP, CK, HEPATIC, PT #### [address] Serum or plasma non-glucuron idated bilirubin measurement (mass/volume)Ordered By: Manuel Mccartney on 02-20-2024 Bilirubin.indirect [Mass/Vol] 0.5 mg/dL [facility] Sodium [Moles/volume] in Ser um or PlasmaOrdered By: Manuel Mccartney on 02-20-2024 Sodium [Moles/Vol] 139 mmol/L Normal 136-145 [facility] Comment on above: Performed By: #### L IPASE, TSH3, BMP, PTT, CBC, HS TROP, BNP, CK, HEPATIC, PT #### [address] Thyrotropin [Units/volume] i n Serum or PlasmaOrdered By: Manuel Mccartney on 02-20-2024 TSH Qn 2.00 m[IU]/L Normal 0.45-5.33 [facility] Comment on above: Result Comment: PERF ORMED BY: [place] [address] PATHOLOGIST QUANTITATIVE SOFTWARE ENGINEER NINA KEATING M.D. Performed By: #### L IPASE, TSH3, BMP, PTT, CBC, HS TROP, BNP, CK, HEPATIC, PT #### [address] Troponin I High Sensitivityo n 02-20-2024 Troponin I High Sensitivity < 2.3 Normal 0.0-20.0 [facility] Comment on above: Result Comment: PERF ORMED BY: [place] [address] PATHOLOGIST QUANTITATIVE SOFTWARE ENGINEER NINA KEATING M.D. Performed By: #### L IPASE, TSH3, BMP, PTT, CBC, HS TROP, BNP, CK, HEPATIC, PT #### [address] Troponin I.cardiac [Mass/vol ume] in Serum or Plasma by Detection limit <= 0.01 ng/Ordered By: Manuel Mccartney on 02-20-2024 Troponin I.cardiac DL <= 0.01 ng/mL [Mass/Vol] < 2.3 pg/mL 0.0-20.0 [facility] Urea nitrogen [Mass/volume] in Serum or PlasmaOrdered By: Manuel Mccartney on 02-20-2024 Urea nitrogen [Mass/Vol] 14 mg/dL Normal 7-25 [facility] Comment on above: Performed By: #### L IPASE, TSH3, BMP, PTT, CBC, HS TROP, BNP, CK, HEPATIC, PT #### [facility] [address] XR chest 2V*on 02-20-2024 XR chest 2V* [facility] [place] [address] XRay Report Signed Patient: Dustin Harden MR#: [id number] : 1995 Acct:[id number] Age/Sex: 29 / M ADM Date: 02/20/24 [...] Odalis Austin M.D.02/20/2024 3:53 PM Dictation Location: [place] [address] Transcribed By: [facility] 02/20/24 1555 Dictated By: Odalis Austin MD 02/20/24 155 Signed By: 02/20/24 155 Normal [facility] Covid-19 PCR (CVDTBH)on 09-15 SARS-CoV-2 (COVID-19) RNA KOSTAS+probe Ql (Unsp spec) Not detected Normal NOT DETECTED [facility] Comment on above: Result Comment: This test is not yet approved or cleared by the [place] FDA. When there are no FDA-approved or cleared tests available, and other criteria are met, FDA can make tests available under an emergency access mechanism called an Emergency Use Authorization (EUA). The EUA for this test is supported by the [place] of Health and Human Service's (HHS's) declaration [...] consistent with SARS-CoV-2. Performed By: #### [facility] #### [facility] [address] [place] [address] [address] Kirk Matson Vital Signs Date Time Vital Sign Value Performing Clinician Hasmukh mcdonnell 03-26-2024 09:43-0400 Heart rate 53 /min MD Mark Spaulding Work Phone: [facility] 03-26-2024 09:43-0400 Respiratory rate 16 /min MD Mark Spaulding Work Phone: [facility] 03-26-2024 09:43-0400 SaO2% (BldA) [Mass fraction] 97 % MD Mark Spaulding Work Phone: [facility] 03-26-2024 07:58-0400 Body height 175.26 cm MD Mark Spaulding Work Phone: [facility] 03-26-2024 07:58-0400 Body temperature 98.4 [degF] MD Mark Spaulding Work Phone: [facility] 03-26-2024 07:58-0400 Body weight 92.2 kg MD Mark Spaulding Work Phone: [facility] 03-26-2024 07:58-0400 Diastolic blood pressure 90 mm[Hg] MD Mark Spaulding Work Phone: [facility] 03-26-2024 07:58-0400 Systolic blood pressure 134 mm[Hg] MD Mark Spaulding Work Phone: [facility] 02-20-2024 17:44-0400 Diastolic blood pressure 79 mm[Hg] MD Mark Spaulding Work Phone: [facility] 02-20-2024 17:44-0400 Heart rate 80 /min MD Mark Spaulding Work Phone: [facility] 02-20-2024 17:44-0400 Respiratory rate 20 /min MD Mark Spaulding Work Phone: [facility] 02-20-2024 17:44-0400 SaO2% (BldA) [Mass fraction] 97 % MD Mark Spaulding Work Phone: [facility] 02-20-2024 17:44-0400 Systolic blood pressure 137 mm[Hg] MD Mark Spaulding Work Phone: [facility] 02-20-2024 14:00-0400 Body height 175.26 cm MD Mark Spaulding Work Phone: [facility] 02-20-2024 14:00-0400 Body temperature 97.7 [degF] MD Mark Spaulding Work Phone: [facility] 02-20-2024 14:00-0400 Body weight 94.8 kg MD Mark Spaulding Work Phone: [facility] Encounters Encounter Date Encounter Type Care Provider Facility Start: 03-26-2024 End: 03-26-2024 Emergency department patient visit MD Mark Spaulding Work Phone: [facility] Work Phone: Start: 02-20-2024 End: 02-20-2024 Emergency department patient visit MD Mark Spaulding Work Phone: [facility] Work Phone: Start: 10-03-2021 End: 10-03-[address] JONATHON VALERO Facility:[facility] Start: 05-11-2021 End: 05-11-[address] DOCTOR HEALY Facility:[facility] Procedures Date Procedure Procedure Detail Performing Clinician Start: 03-26-2024 Plain chest X-ray MD Brown Work Phone: Start: 02-20-2024 Plain chest X-ray MD Brown Work Phone: Plan of Treatment Date Care Activity Detail Author Patient Education [facility] Work Phone: Patient referral [facility] Work Phone: Payers Date Payer Category Payer Medicaid [id number] 2024 Self-pay [id number] 1995 Unknown [id number] 1995 Unknown [id number] 1959 Unknown [id number] Medicaid [place] HMO 105 [id number] Unknown [id number] Unknown [id number] Social History Date Type Detail Facility Start: 02-20-2024 End: 03-26-2024 Tobacco smoking status NHIS Smoker (finding) [facility] Start: 1995 Sex Assigned At Male [facility] Evaluation note Note Date & Type Note Facility Evaluation note No assessment information availa [facility] Work Phone: Summary Purpose Family [...] and content) DATE CREATED AUTHOR 10/04/2021 [facility] DATE CREATED AUTHOR AUTHOR'S ORGANIZ ATION 04/11/2024 [facility] Care Teams (unrecognized sec tion [...] BE BASED ON THE PRIMARY CLINICAL RECORDS. [facility] [employer] [facility]. provides no warranty or guarantee of the accuracy or completeness of information in this document.
--- OUTSIDE RECORDS SUMMARY | 2024-05-12 11:58 | XMS_ITS | CCD ---
Author Organization [facility] Care Team Providers Care Pallet Rectifier Name Role Phone PAY, DR HOLT Admitting Unavailable MISC, DR KILGORE Primary Care Unavailable PAY, DR HOLT Attending Unavailable PAY, DR HOLT Consulting Unavailable MISC, DR KILGORE Primary Care Unavailable MARKER, DR DICKENS Attending Unavailable MARKER, DR DICKENS Consulting Unavailable MARKER, DR DICKENS Admitting Unavailable MD Mark Spaulding Primary Care Provider DAVID Kelly Emergency Provider DO Juan Patterson Emergency Provider Juan Patterson Admitting Unavailable Mark [...] aPTT Coag (PPP) [Time] 28.3 s 25.1-36.5 [facility] Comment on above: A hematocrit value g reater than 55% may lead to inaccurate results in coagulation testing. Patients having hematocrit values >55% require a special collection tube for coagulation studies. Please contact the laboratory at [phone] for redraw instructions. Alanine aminotransferase [En zymatic activity/volume] in Serum or PlasmaOrdered By: Juan Patterson on 03-26-2024 ALT [Catalytic activity/Vol] 24 U/L Normal 7-52 [facility] Comment on above: Performed By: #### L IPASE, TSH3, BMP, PTT, CBC, HS TROP, BNP, CK, HEPATIC, PT #### [facility] [address] [place] [address] [place] Albumin [Mass/volume] in Ser um or Plasma by Bromocresol green (BCG) dye binding methoOrdered By: Juan Patterson on 03-26-2024 Albumin BCG dye [Mass/Vol] 4.8 g/dL 3.5-5.7 [facility] Alkaline phosphatase [Enzyma tic activity/volume] in Serum or PlasmaOrdered By: Juan Patterson on 03-26-2024 ALP [Catalytic activity/Vol] 80 U/L Normal 34-104 [facility] Comment on above: Performed By: #### L IPASE, TSH3, BMP, PTT, CBC, HS TROP, BNP, CK, HEPATIC, PT #### [facility] [address] [place] [address] [place] Aspartate aminotransferase [ Enzymatic activity/volume] in Serum or PlasmaOrdered By: Juan Patterson on 03-26-2024 AST [Catalytic activity/Vol] 23 U/L Normal 13-39 [facility] Comment on above: Performed By: #### L IPASE, TSH3, BMP, PTT, CBC, HS TROP, BNP, CK, HEPATIC, PT #### [address] Automated basophil %Ordered By: Juan Patterson on 03-26-2024 Basophils/100 WBC (Bld) 0.6 % Normal . [facility] Comment on above: Performed By: #### L IPASE, TSH3, BMP, PTT, CBC, HS TROP, BNP, CK, HEPATIC, PT #### [address] Automated basophil countOrde red By: Juan Patterson on 03-26-2024 Basophils (Bld) [#/Vol] 0.0 10*3/uL Normal 0.0-0.2 [facility] Comment on above: Result Comment: PERF ORMED BY: [place] [address] PATHOLOGIST HOTEL NIGHT AUDITOR NINA KEATING M.D. Performed By: #### L IPASE, TSH3, BMP, PTT, CBC, HS TROP, BNP, CK, HEPATIC, PT #### [address] Automated blood monocyte cou ntOrdered By: Juan Patterson on 03-26-2024 Monocytes (Bld) [#/Vol] 0.6 10*3/uL Normal 0.0-0.8 [facility] Comment on above: Performed By: #### L IPASE, TSH3, BMP, PTT, CBC, HS TROP, BNP, CK, HEPATIC, PT #### [address] Automated eosinophil %Ordere d By: Juan Patterson on 03-26-2024 Eosinophils/100 WBC (Bld) 1.9 % Normal . [facility] Comment on above: Performed By: #### L IPASE, TSH3, BMP, PTT, CBC, HS TROP, BNP, CK, HEPATIC, PT #### [address] Automated eosinophil countOr dered By: Juan Patterson on 03-26-2024 Eosinophils (Bld) [#/Vol] 0.1 10*3/uL Normal 0.0-0.45 [facility] Comment on above: Performed By: #### L IPASE, TSH3, BMP, PTT, CBC, HS TROP, BNP, CK, HEPATIC, PT #### [facility] [address] Automated monocyte %Ordered By: Juan Patterson on 03-26-2024 Monocytes/100 WBC (Bld) 8.9 % Normal . [facility] Comment on above: Performed By: #### L IPASE, TSH3, BMP, PTT, CBC, HS TROP, BNP, CK, HEPATIC, PT #### [facility] [address] Automated neutrophil %Ordere d By: Juan Patterson on 03-26-2024 Neutrophils/100 WBC (Bld) 65.5 % Normal . [facility] Comment on above: Performed By: #### L IPASE, TSH3, BMP, PTT, CBC, HS TROP, BNP, CK, HEPATIC, PT #### [facility] [address] Bilirubin.total [Mass/volume ] in Serum or PlasmaOrdered By: Juan Patterson on 03-26-2024 Bilirubin [Mass/Vol] 0.8 mg/dL Normal 0.3-1.0 [facility] Comment on above: Performed By: #### L IPASE, TSH3, BMP, PTT, CBC, HS TROP, BNP, CK, HEPATIC, PT #### [facility] [address] Calcium [Mass/volume] in Ser um or PlasmaOrdered By: Juan Patterson on 03-26-2024 Calcium [Mass/Vol] 10.1 mg/dL Normal 8.6-10.3 [facility] Comment on above: Performed By: #### L IPASE, TSH3, BMP, PTT, CBC, HS TROP, BNP, CK, HEPATIC, PT #### [address] Carbon dioxide, total [Moles /volume] in Serum or PlasmaOrdered By: Juan Patterson on 03-26-2024 CO2 [Moles/Vol] 24.0 mmol/L Normal 21.0-31.0 [facility] Comment on above: Performed By: #### L IPASE, TSH3, BMP, PTT, CBC, HS TROP, BNP, CK, HEPATIC, PT #### [address] Chloride [Moles/volume] in S germaine or PlasmaOrdered By: Juan Patterson on 03-26-2024 Chloride [Moles/Vol] 104 mmol/L Normal 98-107 [facility] Comment on above: Performed By: #### L IPASE, TSH3, BMP, PTT, CBC, HS TROP, BNP, CK, HEPATIC, PT #### [address] Complete Blood Count Auto Di ffon 03-26-2024 Mean Corpuscular HGB Conc 34.8 g/dL Normal 32.5-35.6 [facility] Comment on above: Performed By: #### L IPASE, TSH3, BMP, PTT, CBC, HS TROP, BNP, CK, HEPATIC, PT #### [address] Monocytes/100 WBC (Bld) 16.49 % Normal 0.00-20.00 [facility] Comment on above: Performed By: #### L IPASE, TSH3, BMP, PTT, CBC, HS TROP, BNP, CK, HEPATIC, PT #### [address] NRBC% 0.2 /100{WBC} Normal 0-0.5 [facility] Comment on above: Performed By: #### L IPASE, TSH3, BMP, PTT, CBC, HS TROP, BNP, CK, HEPATIC, PT #### [address] Comprehensive Metabolic Pane annette 03-26-2024 Albumin [Mass/Vol] 4.8 g/dL Normal 3.5-5.7 [facility] Comment on above: Performed By: #### L IPASE, TSH3, BMP, PTT, CBC, HS TROP, BNP, CK, HEPATIC, PT #### [address] [place] [address] [place] Creatinine Clr Calc Pharmacy 158.77 Normal [facility] Comment on above: Performed By: #### L IPASE, TSH3, BMP, PTT, CBC, HS TROP, BNP, CK, HEPATIC, PT #### [facility] [address] [place] [address] [place] GFR/1.73 sq M.predicted MDRD (S/P/Bld) [Vol rate/Area] mL/min/{1.73_m2} Normal [facility] Comment on above: Performed By: #### L IPASE, TSH3, BMP, PTT, CBC, HS TROP, BNP, CK, HEPATIC, PT #### [facility] [address] Creatine kinase [Enzymatic a ctivity/volume] in Serum or PlasmaOrdered By: Juan Patterson on 03-26-2024 CK [Catalytic activity/Vol] 122 U/L Normal 30-223 [facility] Comment on above: Performed By: #### L IPASE, TSH3, BMP, PTT, CBC, HS TROP, BNP, CK, HEPATIC, PT #### [facility] [address] [place] [address] [place] Creatinine [Mass/volume] in Serum or PlasmaOrdered By: Juan Patterson on 03-26-2024 Creatinine [Mass/Vol] 0.77 mg/dL Normal 0.70-1.30 [facility] Comment on above: Performed By: #### L IPASE, TSH3, BMP, PTT, CBC, HS TROP, BNP, CK, HEPATIC, PT #### [facility] [address] [place] [id number] [place] ECG 12 lead ECGon 03-26-2024 ECG 12 lead ECG [facility] [place] [address] [place] [address] Electrocardiograph Report Signed Patient: Dustin Harden MR#: [id number] : 1995 Acct:[id number] Age/Sex: 29 / M ADM Date: 03/26/24 Loc: ER Room: Type: [facility] ER Attending Dr: Ordering Provider: Juan [...] By Juan Patterson DO 1437 Normal [facility] Erythrocyte distribution wid th [Ratio] by Automated countOrdered By: Juan Patterson on 03-26-2024 Erythrocyte distribution width (RBC) [Ratio] 13.4 % Normal 12.0-14.8 [facility] Comment on above: Performed By: #### L IPASE, TSH3, BMP, PTT, CBC, HS TROP, BNP, CK, HEPATIC, PT #### [facility] [address] Erythrocytes [#/volume] in B lood by Automated countOrdered By: Juan Patterson on 03-26-2024 RBC (Bld) [#/Vol] 5.28 10*6/uL Normal 3.90-5.60 [facility] Comment on above: Performed By: #### L IPASE, TSH3, BMP, PTT, CBC, HS TROP, BNP, CK, HEPATIC, PT #### [facility] [address] [place] [address] [place] Glucose [Mass/volume] in Ser um or PlasmaOrdered By: Juan Patterson on 03-26-2024 Glucose [Mass/Vol] 98 mg/dL Normal 70-100 [facility] Comment on above: ADA recommended refe rence rangeRandom Glucose Reference Range is dependent on time and content of last meal. Glucose of more than 200 mg/dL in a nonstressed, ambulatory subject supports the diagnosis of Diabetes Mellitus. Result Comment: [facility] Glucose Reference Range is dependent on time and content of last meal. Glucose of more than 200 mg/dL in a nonstressed, ambulatory subject supports the diagnosis of Diabetes Mellitus. ADA recommended reference range Performed By: #### L IPASE, TSH3, BMP, PTT, CBC, HS TROP, BNP, CK, HEPATIC, PT #### [facility] [address] Hematocrit [Volume Fraction] of Blood by Automated countOrdered By: Juan Patterson on 03-26-2024 Hematocrit (Bld) [Volume fraction] 46.2 % Normal 38.8-50.0 [facility] Comment on above: Performed By: #### L IPASE, TSH3, BMP, PTT, CBC, HS TROP, BNP, CK, HEPATIC, PT #### [address] Hemoglobin [Mass/volume] in BloodOrdered By: Juan Patterson on 03-26-2024 Hemoglobin (Bld) [Mass/Vol] 16.1 g/dL Normal 13.0-17.0 [facility] Comment on above: Performed By: #### L IPASE, TSH3, BMP, PTT, CBC, HS TROP, BNP, CK, HEPATIC, PT #### [address] INR in Platelet poor plasma by Coagulation assayOrdered By: Juan Patterson on 03-26-2024 INR Coag (PPP) [Relative time] 1.0 {INR} Normal [facility] Comment on above: INR Therapeutic Rang e [...] HS TROP, BNP, CK, HEPATIC, PT #### [address] Leukocytes [#/volume] correc modesta for nucleated erythrocytes in Blood by Automated counOrdered By: Juan Patterson on 03-26-2024 WBC corrected for nucl RBC Auto (Bld) [#/Vol] 6.2 10*3/uL 4.1-10.5 [facility] Leukocytes [#/volume] in Blo od by Automated countOrdered By: Juan Patterson on 03-26-2024 WBC (Bld) [#/Vol] 6.2 10*3/uL Normal 4.1-10.5 [facility] Comment on above: Performed By: #### L IPASE, TSH3, BMP, PTT, CBC, HS TROP, BNP, CK, HEPATIC, PT #### [address] Lymphocytes [#/volume] in Bl ood by Automated countOrdered By: Juan Patterson on 03-26-2024 Lymphocytes (Bld) [#/Vol] 1.4 10*3/uL Normal 1.00-4.8 [facility] Comment on above: Performed By: #### L IPASE, TSH3, BMP, PTT, CBC, HS TROP, BNP, CK, HEPATIC, PT #### [place] [address] [place] Lymphocytes/100 leukocytes i n Blood by Automated countOrdered By: Juan Patterson on 03-26-2024 Lymphocytes/100 WBC (Bld) 23.1 % Normal . [facility] Comment on above: Performed By: #### L IPASE, TSH3, BMP, PTT, CBC, HS TROP, BNP, CK, HEPATIC, PT #### [place] [address] [place] MCH [Entitic mass] by Automa modesta countOrdered By: Juan Patterson on 03-26-2024 MCH (RBC) [Entitic mass] 30.5 pg Normal 27.5-35.2 [facility] Comment on above: Performed By: #### L IPASE, TSH3, BMP, PTT, CBC, HS TROP, BNP, CK, HEPATIC, PT #### [facility] [address] MCHC Auto (RBC) [Mass/Vol]Or dered By: Juan Patterson on 03-26-2024 MCHC (RBC) [Mass/Vol] 34.8 g/dL 32.5-35.6 [facility] MCV [Entitic volume] by Auto mated countOrdered By: Juan Patterson on 03-26-2024 MCV (RBC) [Entitic vol] 87.6 fL Normal 83.5-101 [facility] Comment on above: Performed By: #### L IPASE, TSH3, BMP, PTT, CBC, HS TROP, BNP, CK, HEPATIC, PT #### [facility] [address] Magnesium [Mass/volume] in S germaine or PlasmaOrdered By: Juan Patterson on 03-26-2024 Magnesium [Mass/Vol] 1.8 mg/dL Low 1.9-2.7 [facility] Comment on above: Result Comment: PERF ORMED BY: [place] [address] PATHOLOGIST HOTEL NIGHT AUDITOR NINA KEATING M.D. Performed By: #### L IPASE, TSH3, BMP, PTT, CBC, HS TROP, BNP, CK, HEPATIC, PT #### [facility] [address] Monocyte distribution width [Entitic volume] in Blood by AutomatedOrdered By: Juan Patterson on 03-26-2024 Monocyte distribution width Auto (Bld) [Entitic vol] 16.49 % 0.00-20.00 [facility] Neutrophils [#/volume] in Bl ood by Automated countOrdered By: Juan Patterson on 03-26-2024 Neutrophils (Bld) [#/Vol] 4.1 10*3/uL Normal 1.8-7.7 [facility] Comment on above: Performed By: #### L IPASE, TSH3, BMP, PTT, CBC, HS TROP, BNP, CK, HEPATIC, PT #### [facility] [address] [place] [address] No Panel InformationOrdered By: Juan Patterson on 03-26-2024 Estimated GFR (CKD-EPI) > 60.0 mL/Min [facility] Creatinine Clearance (Chem 158.77 [facility] Nucleated erythrocytes [Pres ence] in Blood by Automated countOrdered By: Juan Patterson on 03-26-2024 Nucleated RBC Auto Ql (Bld) 0.2 /100{WBC} 0-0.5 [facility] Partial Thromboplastin Timeo n 03-26-2024 aPTT Coag (Bld) [Time] 28.3 s Normal 25.1-36.5 Th [facility] Comment on above: Result Comment: A he matocrit value greater than 55% may lead to inaccurate results in coagulation testing. Patients having hematocrit values >55% require a special collection tube for coagulation studies. Please contact the laboratory at [phone] for redraw instructions. PERFORMED BY: [place] [address] PATHOLOGIST HOTEL NIGHT AUDITOR NINA KEATING M.D. Performed By: #### L IPASE, TSH3, BMP, PTT, CBC, HS TROP, BNP, CK, HEPATIC, PT #### [address] Platelet mean volume [Entiti c volume] in Blood by Automated countOrdered By: Juan Patterson on 03-26-2024 Platelet mean volume (Bld) [Entitic vol] 9.2 fL Normal 6.6-10.1 [facility] Comment on above: Performed By: #### L IPASE, TSH3, BMP, PTT, CBC, HS TROP, BNP, CK, HEPATIC, PT #### [address] Platelets [#/volume] in Bloo d by Automated countOrdered By: Juan Patterson on 03-26-2024 Platelets (Bld) [#/Vol] 210 10*3/uL Normal 150-450 [facility] Comment on above: Performed By: #### L IPASE, TSH3, BMP, PTT, CBC, HS TROP, BNP, CK, HEPATIC, PT #### [facility] [address] Potassium [Moles/volume] in Serum or PlasmaOrdered By: Juan Patterson on 03-26-2024 Potassium [Moles/Vol] 3.9 mmol/L Normal 3.5-5.1 [facility] Comment on above: Performed By: #### L IPASE, TSH3, BMP, PTT, CBC, HS TROP, BNP, CK, HEPATIC, PT #### [facility] [address] Protein [Mass/volume] in Ser um or PlasmaOrdered By: Juan Patterson on 03-26-2024 Protein [Mass/Vol] 8.0 g/dL Normal 6.4-8.9 [facility] Comment on above: Performed By: #### L IPASE, TSH3, BMP, PTT, CBC, HS TROP, BNP, CK, HEPATIC, PT #### [facility] [address] Prothrombin time (PT)Ordered By: Juan Patterson on 03-26-2024 PT Coag (PPP) [Time] 11.1 s Normal 9.0-12.9 [facility] Comment on above: A hematocrit value g reater than 55% may lead to inaccurate results in coagulation testing. Patients having hematocrit values >55% require a special collection tube for coagulation studies. Please contact the laboratory at [phone] for redraw instructions. Result Comment: A he matocrit value greater than 55% may lead to inaccurate results in coagulation testing. Patients having hematocrit values >55% require a special collection tube for coagulation studies. Please contact the laboratory at [phone] for redraw instructions. Performed By: #### L IPASE, TSH3, BMP, PTT, CBC, HS TROP, BNP, CK, HEPATIC, PT #### [facility] [address] Serum globulin measurement b y calculation (mass/volume)Ordered By: Juan Patterson on 03-26-2024 Globulin (S) [Mass/Vol] 3.2 g/dL [facility] Comment on above: Performed By: #### L IPASE, TSH3, BMP, PTT, CBC, HS TROP, BNP, CK, HEPATIC, PT #### [facility] [address] [place] [address] Serum or plasma albumin/glob ulin mass ratioOrdered By: Juan Patterson on 03-26-2024 Albumin/Globulin [Mass ratio] 1.5 {ratio} [facility] Comment on above: Performed By: #### L IPASE, TSH3, BMP, PTT, CBC, HS TROP, BNP, CK, HEPATIC, PT #### [facility] [address] [place] [address] Serum or plasma anion gap de terminationOrdered By: Juan Patterson on 03-26-2024 Anion gap [Moles/Vol] 13.9 mmol/L Normal 6.0-15.0 [facility] Comment on above: Performed By: #### L IPASE, TSH3, BMP, PTT, CBC, HS TROP, BNP, CK, HEPATIC, PT #### [facility] [address] [place] [address] Sodium [Moles/volume] in Ser um or PlasmaOrdered By: Juan Patterson on 03-26-2024 Sodium [Moles/Vol] 138 mmol/L Normal 136-145 [facility] Comment on above: Performed By: #### L IPASE, TSH3, BMP, PTT, CBC, HS TROP, BNP, CK, HEPATIC, PT #### [facility] [address] [place] [address] Troponin I High Sensitivityo n 03-26-2024 Troponin I High Sensitivity < 2.3 Normal 0.0-20.0 [facility] Comment on above: Result Comment: PERF ORMED BY: [place] [address] PATHOLOGIST HOTEL NIGHT AUDITOR NINA KEATING M.D. Performed By: #### L IPASE, TSH3, BMP, PTT, CBC, HS TROP, BNP, CK, HEPATIC, PT #### [facility] [address] Troponin I.cardiac [Mass/vol ume] in Serum or Plasma by Detection limit <= 0.01 ng/Ordered By: Juan Patterson on 03-26-2024 Troponin I.cardiac DL <= 0.01 ng/mL [Mass/Vol] < 2.3 pg/mL 0.0-20.0 [facility] Urea nitrogen [Mass/volume] in Serum or PlasmaOrdered By: Juan Patterson on 03-26-2024 Urea nitrogen [Mass/Vol] 15 mg/dL Normal 7-25 [facility] Comment on above: Performed By: #### L IPASE, TSH3, BMP, PTT, CBC, HS TROP, BNP, CK, HEPATIC, PT #### [facility] [address] [place] [address] XR chest 1V portableon 03-26 XR chest 1V portable [facility] [address] XRay Report Signed Patient: Dustin Harden MR#: [id number] : 1995 Acct:[id number] Age/Sex: 29 / M ADM Date: 03/26/24 Loc: ER Room: Type: [facility] ER Attending Dr: Copies to: Juan Patterson DO Ordering Provider: Juan Patterson DO Date of Service: 03/26/24 XR/XR chest 1V portable: Arrhythmia/Palpitations SINGLE VIEW CHEST CLINICAL HISTORY: Arrhythmia palpitations congestion COMPARISON: Chest 02/20/2024 FINDINGS: Heart normal in size. Lungs are clear. No free air. XR/XR chest 1V portable IMPRESSION: NO ACUTE FINDINGS Impression dictated by: Gallo Urban Jr., D.OLeroy03/26/2024 8:53 AM Dictation Location: [place] [address] Transcribed By: [facility] 03/26/24 0853 Dictated By: Gallo Urban Jr, DO 03/26/24 0847 Signed By: 06/12/24 0853 Normal [facility] Activated partial thrombopla stin time (aPTT) in platelet poor plasma by coagulation aOrdered By: Manuel Mccartney on 02-20-2024 aPTT Coag (PPP) [Time] 30.0 s 25.1-36.5 [facility] Comment on above: A hematocrit value g reater than 55% may lead to inaccurate results in coagulation testing. Patients having hematocrit values >55% require a special collection tube for coagulation studies. Please contact the laboratory at [phone] for redraw instructions. Alanine aminotransferase [En zymatic activity/volume] in Serum or PlasmaOrdered By: Manuel Mccartney on 02-20-2024 ALT [Catalytic activity/Vol] 36 U/L Normal 7-52 [facility] Comment on above: Performed By: #### L IPASE, TSH3, BMP, PTT, CBC, HS TROP, BNP, CK, HEPATIC, PT #### [facility] [address] [place] [address] [place] Albumin [Mass/volume] in Ser um or Plasma by Bromocresol green (BCG) dye binding methoOrdered By: Manuel Mccartney on 02-20-2024 Albumin BCG dye [Mass/Vol] 5.0 g/dL 3.5-5.7 [facility] Alkaline phosphatase [Enzyma tic activity/volume] in Serum or PlasmaOrdered By: Manuel Mccartney on 02-20-2024 ALP [Catalytic activity/Vol] 76 U/L Normal 34-104 [facility] Comment on above: Performed By: #### L IPASE, TSH3, BMP, PTT, CBC, HS TROP, BNP, CK, HEPATIC, PT #### [facility] [address] [place] [address] [place] Aspartate aminotransferase [ Enzymatic activity/volume] in Serum or PlasmaOrdered By: Manuel Mccartney on 02-20-2024 AST [Catalytic activity/Vol] 26 U/L Normal 13-39 [facility] Comment on above: Performed By: #### L IPASE, TSH3, BMP, PTT, CBC, HS TROP, BNP, CK, HEPATIC, PT #### [facility] [address] [place] [id number] [place] Automated basophil %Ordered By: Manuel Mccartney on 02-20-2024 Basophils/100 WBC (Bld) 0.5 % Normal . [facility] Comment on above: Performed By: #### L IPASE, TSH3, BMP, PTT, CBC, HS TROP, BNP, CK, HEPATIC, PT #### [address] Automated basophil countOrde red By: Manuel Mccartney on 02-20-2024 Basophils (Bld) [#/Vol] 0.1 10*3/uL Normal 0.0-0.2 [facility] Comment on above: Result Comment: PERF ORMED BY: [place] [address] PATHOLOGIST HOTEL NIGHT AUDITOR NINA KEATING M.D. Performed By: #### L IPASE, TSH3, BMP, PTT, CBC, HS TROP, BNP, CK, HEPATIC, PT #### [address] Automated blood monocyte cou ntOrdered By: Manuel Mccartney on 02-20-2024 Monocytes (Bld) [#/Vol] 0.8 10*3/uL Normal 0.0-0.8 [facility] Comment on above: Performed By: #### L IPASE, TSH3, BMP, PTT, CBC, HS TROP, BNP, CK, HEPATIC, PT #### [address] Automated eosinophil %Ordere d By: Manuel Mccartney on 02-20-2024 Eosinophils/100 WBC (Bld) 0.6 % Normal . [facility] Comment on above: Performed By: #### L IPASE, TSH3, BMP, PTT, CBC, HS TROP, BNP, CK, HEPATIC, PT #### [address] Automated eosinophil countOr dered By: Manuel Mccartney on 02-20-2024 Eosinophils (Bld) [#/Vol] 0.1 10*3/uL Normal 0.0-0.45 [facility] Comment on above: Performed By: #### L IPASE, TSH3, BMP, PTT, CBC, HS TROP, BNP, CK, HEPATIC, PT #### [address] Automated monocyte %Ordered By: Manuel Mccartney on 02-20-2024 Monocytes/100 WBC (Bld) 7.3 % Normal . [facility] Comment on above: Performed By: #### L IPASE, TSH3, BMP, PTT, CBC, HS TROP, BNP, CK, HEPATIC, PT #### [address] Automated neutrophil %Ordere d By: Manuel Mccartney on 02-20-2024 Neutrophils/100 WBC (Bld) 79.8 % Normal . [facility] Comment on above: Performed By: #### L IPASE, TSH3, BMP, PTT, CBC, HS TROP, BNP, CK, HEPATIC, PT #### [address] BNP ser/plasOrdered By: Manuel Mccartney on 02-20-2024 Natriuretic peptide B (Bld) [Mass/Vol] 7.0 pg/mL Normal 5-100 [facility] Comment on above: Result Comment: PERF ORMED BY: [place] [address] PATHOLOGIST HOTEL NIGHT AUDITOR NINA KEATING M.D. Performed By: #### L IPASE, TSH3, BMP, PTT, CBC, HS TROP, BNP, CK, HEPATIC, PT #### [address] Basic Metabolic Panelon 05-0 Creatinine Clr Calc Pharmacy 137.62 Normal [facility] Comment on above: Performed By: #### L IPASE, TSH3, BMP, PTT, CBC, HS TROP, BNP, CK, HEPATIC, PT #### [address] GFR/1.73 sq M.predicted MDRD (S/P/Bld) [Vol rate/Area] mL/min/{1.73_m2} Normal [facility] Comment on above: Performed By: #### L IPASE, TSH3, BMP, PTT, CBC, HS TROP, BNP, CK, HEPATIC, PT #### [facility] [address] Bilirubin.direct [Mass/volum e] in Serum or PlasmaOrdered By: Manuel Mccartney on 02-20-2024 Bilirubin.direct [Mass/Vol] 0.10 mg/dL 0.03-0.18 [facility] Bilirubin.total [Mass/volume ] in Serum or PlasmaOrdered By: Manuel Mccartney on 02-20-2024 Bilirubin [Mass/Vol] 0.6 mg/dL Normal 0.3-1.0 [facility] Comment on above: Performed By: #### L IPASE, TSH3, BMP, PTT, CBC, HS TROP, BNP, CK, HEPATIC, PT #### [facility] [address] Calcium [Mass/volume] in Ser um or PlasmaOrdered By: Manuel Mccartney on 02-20-2024 Calcium [Mass/Vol] 10.1 mg/dL Normal 8.6-10.3 [facility] Comment on above: Performed By: #### L IPASE, TSH3, BMP, PTT, CBC, HS TROP, BNP, CK, HEPATIC, PT #### [facility] [address] Carbon dioxide, total [Moles /volume] in Serum or PlasmaOrdered By: Manuel Mccartney on 02-20-2024 CO2 [Moles/Vol] 25.5 mmol/L Normal 21.0-31.0 [facility] Comment on above: Performed By: #### L IPASE, TSH3, BMP, PTT, CBC, HS TROP, BNP, CK, HEPATIC, PT #### [facility] [address] [place] [address] [place] Chloride [Moles/volume] in S germaine or PlasmaOrdered By: Manuel Mccartney on 02-20-2024 Chloride [Moles/Vol] 105 mmol/L Normal 98-107 [facility] Comment on above: Performed By: #### L IPASE, TSH3, BMP, PTT, CBC, HS TROP, BNP, CK, HEPATIC, PT #### [address] Complete Blood Count Auto Di ffon 02-20-2024 Mean Corpuscular HGB Conc 34.4 g/dL Normal 32.5-35.6 [facility] Comment on above: Performed By: #### L IPASE, TSH3, BMP, PTT, CBC, HS TROP, BNP, CK, HEPATIC, PT #### [address] Monocytes/100 WBC (Bld) 16.28 % Normal 0.00-20.00 [facility] Comment on above: Performed By: #### L IPASE, TSH3, BMP, PTT, CBC, HS TROP, BNP, CK, HEPATIC, PT #### [address] NRBC% 0.1 /100{WBC} Normal 0-0.5 [facility] Comment on above: Performed By: #### L IPASE, TSH3, BMP, PTT, CBC, HS TROP, BNP, CK, HEPATIC, PT #### [address] Creatine kinase [Enzymatic a ctivity/volume] in Serum or PlasmaOrdered By: Manuel Mccartney on 02-20-2024 CK [Catalytic activity/Vol] 100 U/L Normal 30-223 [facility] Comment on above: Performed By: #### L IPASE, TSH3, BMP, PTT, CBC, HS TROP, BNP, CK, HEPATIC, PT #### [address] Creatinine [Mass/volume] in Serum or PlasmaOrdered By: Manuel Mccartney on 02-20-2024 Creatinine [Mass/Vol] 0.90 mg/dL Normal 0.70-1.30 [facility] Comment on above: Performed By: #### L IPASE, TSH3, BMP, PTT, CBC, HS TROP, BNP, CK, HEPATIC, PT #### [address] ECG 12 lead ECGon 02-20-2024 ECG 12 lead ECG [facility] [place] [address] Electrocardiograph Report Signed Patient: Dustin Harden MR#: [id number] : 1995 Acct:[id number] Age/Sex: 29 / M ADM Date: 02/20/24 [...] ECGs available Confirmed by MANUEL MCCARTNEY DO ([id number]) on 02/20/2024 3:42:48 PM Referred By: Electronically Signed By:MANUEL MCCARTNEY DO Transcribed By: MUS Signed By Manuel Mccartney DO 02/19 1542 Normal [facility] Erythrocyte distribution wid th [Ratio] by Automated countOrdered By: Manuel Mccartney on 02-20-2024 Erythrocyte distribution width (RBC) [Ratio] 13.2 % Normal 12.0-14.8 [facility] Comment on above: Performed By: #### L IPASE, TSH3, BMP, PTT, CBC, HS TROP, BNP, CK, HEPATIC, PT #### [facility] [address] [place] [address] [place] Erythrocytes [#/volume] in B lood by Automated countOrdered By: Manuel Mccartney on 02-20-2024 RBC (Bld) [#/Vol] 5.47 10*6/uL Normal 3.90-5.60 [facility] Comment on above: Performed By: #### L IPASE, TSH3, BMP, PTT, CBC, HS TROP, BNP, CK, HEPATIC, PT #### [facility] [address] [place] [address] [place] Glucose [Mass/volume] in Ser um or PlasmaOrdered By: Manuel Mccartney on 02-20-2024 Glucose [Mass/Vol] 96 mg/dL Normal 70-100 [facility] Comment on above: ADA recommended refe rence rangeRandom Glucose Reference Range is dependent on time and content of last meal. Glucose of more than 200 mg/dL in a nonstressed, ambulatory subject supports the diagnosis of Diabetes Mellitus. Result Comment: [place] om Glucose Reference Range is dependent on time and content of last meal. Glucose of more than 200 mg/dL in a nonstressed, ambulatory subject supports the diagnosis of Diabetes Mellitus. ADA recommended reference range Performed By: #### L IPASE, TSH3, BMP, PTT, CBC, HS TROP, BNP, CK, HEPATIC, PT #### [address] Hematocrit [Volume Fraction] of Blood by Automated countOrdered By: Manuel Mccartney on 02-20-2024 Hematocrit (Bld) [Volume fraction] 47.6 % Normal 38.8-50.0 [facility] Comment on above: Performed By: #### L IPASE, TSH3, BMP, PTT, CBC, HS TROP, BNP, CK, HEPATIC, PT #### [address] Hemoglobin [Mass/volume] in BloodOrdered By: Manuel Mccartney on 02-20-2024 Hemoglobin (Bld) [Mass/Vol] 16.4 g/dL Normal 13.0-17.0 [facility] Comment on above: Performed By: #### L IPASE, TSH3, BMP, PTT, CBC, HS TROP, BNP, CK, HEPATIC, PT #### [address] Hepatic Panelon 02-20-2024 Albumin [Mass/Vol] 5.0 g/dL Normal 3.5-5.7 [facility] Comment on above: Performed By: #### L IPASE, TSH3, BMP, PTT, CBC, HS TROP, BNP, CK, HEPATIC, PT #### [address] Bilirubin,Indirect 0.5 mg/dL Normal [facility] Comment on above: Performed By: #### L IPASE, TSH3, BMP, PTT, CBC, HS TROP, BNP, CK, HEPATIC, PT #### [facility] [address] Bilirubin.indirect [Mass/Vol] 0.10 mg/dL Normal 0.03-0.18 [facility] Comment on above: Performed By: #### L IPASE, TSH3, BMP, PTT, CBC, HS TROP, BNP, CK, HEPATIC, PT #### [facility] [address] INR in Platelet poor plasma by Coagulation assayOrdered By: Manuel Mccartney on 02-20-2024 INR Coag (PPP) [Relative time] 0.9 {INR} Normal [facility] Comment on above: INR Therapeutic Rang e [...] HS TROP, BNP, CK, HEPATIC, PT #### [facility] [address] Leukocytes [#/volume] correc [place] for nucleated erythrocytes in Blood by Automated counOrdered By: Manuel Mccartney on 02-20-2024 WBC corrected for nucl RBC Auto (Bld) [#/Vol] 10.4 10*3/uL 4.1-10.5 [facility] Leukocytes [#/volume] in Blo od by Automated countOrdered By: Manuel Mccartney on 02-20-2024 WBC (Bld) [#/Vol] 10.4 10*3/uL Normal 4.1-10.5 [facility] Comment on above: Performed By: #### L IPASE, TSH3, BMP, PTT, CBC, HS TROP, BNP, CK, HEPATIC, PT #### [facility] [address] Lipase [Enzymatic activity/v olume] in Serum or PlasmaOrdered By: Manuel Mccartney on 02-20-2024 Lipase [Catalytic activity/Vol] 6.0 U/L Low 11.0-82.0 [facility] Comment on above: Performed By: #### L IPASE, TSH3, BMP, PTT, CBC, HS TROP, BNP, CK, HEPATIC, PT #### [address] Lymphocytes [#/volume] in Bl ood by Automated countOrdered By: Manuel Mccartney on 02-20-2024 Lymphocytes (Bld) [#/Vol] 1.2 10*3/uL Normal 1.00-4.8 [facility] Comment on above: Performed By: #### L IPASE, TSH3, BMP, PTT, CBC, HS TROP, BNP, CK, HEPATIC, PT #### [address] Lymphocytes/100 leukocytes i n Blood by Automated countOrdered By: Manuel Mccartney on 02-20-2024 Lymphocytes/100 WBC (Bld) 11.8 % Normal . [facility] Comment on above: Performed By: #### L IPASE, TSH3, BMP, PTT, CBC, HS TROP, BNP, CK, HEPATIC, PT #### [address] MCH [Entitic mass] by Automa [place] countOrdered By: Manuel Mccartney on 02-20-2024 MCH (RBC) [Entitic mass] 29.9 pg Normal 27.5-35.2 [facility] Comment on above: Performed By: #### L IPASE, TSH3, BMP, PTT, CBC, HS TROP, BNP, CK, HEPATIC, PT #### [address] MCHC Auto (RBC) [Mass/Vol]Or dered By: Manuel Mccartney on 02-20-2024 MCHC (RBC) [Mass/Vol] 34.4 g/dL 32.5-35.6 [facility] MCV [Entitic volume] by Auto mated countOrdered By: Manuel Mccartney on 02-20-2024 MCV (RBC) [Entitic vol] 87.0 fL Normal 83.5-101 [facility] Comment on above: Performed By: #### L IPASE, TSH3, BMP, PTT, CBC, HS TROP, BNP, CK, HEPATIC, PT #### [facility] [address] Monocyte distribution width [Entitic volume] in Blood by AutomatedOrdered By: Manuel Mccartney on 02-20-2024 Monocyte distribution width Auto (Bld) [Entitic vol] 16.28 % 0.00-20.00 [facility] Neutrophils [#/volume] in Bl ood by Automated countOrdered By: Manuel Mccartney on 02-20-2024 Neutrophils (Bld) [#/Vol] 8.3 10*3/uL High 1.8-7.7 [facility] Comment on above: Performed By: #### L IPASE, TSH3, BMP, PTT, CBC, HS TROP, BNP, CK, HEPATIC, PT #### [facility] [address] No Panel InformationOrdered By: Manuel Mccartney on 02-20-2024 Estimated GFR (CKD-EPI) > 60.0 mL/Min [facility] Creatinine Clearance (Chem 137.62 [facility] Nucleated erythrocytes [Pres ence] in Blood by Automated countOrdered By: Manuel Mccartney on 02-20-2024 Nucleated RBC Auto Ql (Bld) 0.1 /100{WBC} 0-0.5 [facility] Partial Thromboplastin Timeo n 02-20-2024 aPTT Coag (Bld) [Time] 30.0 s Normal 25.1-36.5 e [facility] Comment on above: Result Comment: A he matocrit value greater than 55% may lead to inaccurate results in coagulation testing. Patients having hematocrit values >55% require a special collection tube for coagulation studies. Please contact the laboratory at [phone] for redraw instructions. PERFORMED BY: [place] [address] PATHOLOGIST HOTEL NIGHT AUDITOR NINA KEATING M.D. Performed By: #### L IPASE, TSH3, BMP, PTT, CBC, HS TROP, BNP, CK, HEPATIC, PT #### [address] Platelet mean volume [Entiti c volume] in Blood by Automated countOrdered By: Manuel Mccartney on 02-20-2024 Platelet mean volume (Bld) [Entitic vol] 9.3 fL Normal 6.6-10.1 [facility] Comment on above: Performed By: #### L IPASE, TSH3, BMP, PTT, CBC, HS TROP, BNP, CK, HEPATIC, PT #### [address] Platelets [#/volume] in Bloo d by Automated countOrdered By: Manuel Mccartney on 02-20-2024 Platelets (Bld) [#/Vol] 217 10*3/uL Normal 150-450 [facility] Comment on above: Performed By: #### L IPASE, TSH3, BMP, PTT, CBC, HS TROP, BNP, CK, HEPATIC, PT #### [address] Potassium [Moles/volume] in Serum or PlasmaOrdered By: Manuel Mccartney on 02-20-2024 Potassium [Moles/Vol] 3.8 mmol/L Normal 3.5-5.1 [facility] Comment on above: Performed By: #### L IPASE, TSH3, BMP, PTT, CBC, HS TROP, BNP, CK, HEPATIC, PT #### [address] Protein [Mass/volume] in Ser um or PlasmaOrdered By: Manuel Mccartney on 02-20-2024 Protein [Mass/Vol] 8.3 g/dL Normal 6.4-8.9 [facility] Comment on above: Performed By: #### L IPASE, TSH3, BMP, PTT, CBC, HS TROP, BNP, CK, HEPATIC, PT #### [address] Prothrombin time (PT)Ordered By: Manuel Mccartney on 02-20-2024 PT Coag (PPP) [Time] 10.9 s Normal 9.0-12.9 [facility] Comment on above: A hematocrit value g reater than 55% may lead to inaccurate results in coagulation testing. Patients having hematocrit values >55% require a special collection tube for coagulation studies. Please contact the laboratory at [phone] for redraw instructions. Result Comment: A he matocrit value greater than 55% may lead to inaccurate results in coagulation testing. Patients having hematocrit values >55% require a special collection tube for coagulation studies. Please contact the laboratory at [phone] for redraw instructions. Performed By: #### L IPASE, TSH3, BMP, PTT, CBC, HS TROP, BNP, CK, HEPATIC, PT #### [address] Serum globulin measurement b y calculation (mass/volume)Ordered By: Manuel Mccartney on 02-20-2024 Globulin (S) [Mass/Vol] 3.3 g/dL [facility] Comment on above: Performed By: #### L IPASE, TSH3, BMP, PTT, CBC, HS TROP, BNP, CK, HEPATIC, PT #### [address] Serum or plasma albumin/glob ulin mass ratioOrdered By: Manuel Mccartney on 02-20-2024 Albumin/Globulin [Mass ratio] 1.5 {ratio} [facility] Comment on above: Performed By: #### L IPASE, TSH3, BMP, PTT, CBC, HS TROP, BNP, CK, HEPATIC, PT #### [address] Serum or plasma anion gap de terminationOrdered By: Manuel Mccartney on 02-20-2024 Anion gap [Moles/Vol] 12.3 mmol/L Normal 6.0-15.0 [facility] Comment on above: Performed By: #### L IPASE, TSH3, BMP, PTT, CBC, HS TROP, BNP, CK, HEPATIC, PT #### [address] Serum or plasma non-glucuron idated bilirubin measurement (mass/volume)Ordered By: Manuel Mccartney on 02-20-2024 Bilirubin.indirect [Mass/Vol] 0.5 mg/dL [facility] Sodium [Moles/volume] in Ser um or PlasmaOrdered By: Manuel Mccartney on 02-20-2024 Sodium [Moles/Vol] 139 mmol/L Normal 136-145 [facility] Comment on above: Performed By: #### L IPASE, TSH3, BMP, PTT, CBC, HS TROP, BNP, CK, HEPATIC, PT #### [address] Thyrotropin [Units/volume] i n Serum or PlasmaOrdered By: Manuel Mccartney on 02-20-2024 TSH Qn 2.00 m[IU]/L Normal 0.45-5.33 [facility] Comment on above: Result Comment: PERF ORMED BY: [place] [address] PATHOLOGIST H[employer]EL NIGHT AUDITOR NINA KEATING M.D. Performed By: #### L IPASE, TSH3, BMP, PTT, CBC, HS TROP, BNP, CK, HEPATIC, PT #### [address] Troponin I High Sensitivityo n 02-20-2024 Troponin I High Sensitivity < 2.3 Normal 0.0-20.0 [facility] Comment on above: Result Comment: PERF ORMED BY: [place] [address] PATHOLOGIST HOTEL NIGHT AUDITOR NINA KEATING M.D. Performed By: #### L IPASE, TSH3, BMP, PTT, CBC, HS TROP, BNP, CK, HEPATIC, PT #### [address] Troponin I.cardiac [Mass/vol ume] in Serum or Plasma by Detection limit <= 0.01 ng/Ordered By: Manuel Mccartney on 02-20-2024 Troponin I.cardiac DL <= 0.01 ng/mL [Mass/Vol] < 2.3 pg/mL 0.0-20.0 [facility] Urea nitrogen [Mass/volume] in Serum or PlasmaOrdered By: Manuel Mccartney on 02-20-2024 Urea nitrogen [Mass/Vol] 14 mg/dL Normal 7-25 [facility] Comment on above: Performed By: #### L IPASE, TSH3, BMP, PTT, CBC, HS TROP, BNP, CK, HEPATIC, PT #### [facility] [address] XR chest 2V*on 02-20-2024 XR chest 2V* [facility] [place] [address] XRay Report Signed Patient: Dustin Harden MR#: [id number] : 1995 Acct:[id number] Age/Sex: 29 / M ADM Date: 02/20/24 [...] Odalis Austin M.D.02/20/2024 3:53 PM Dictation Location: [place] [address] Transcribed By: [facility] 02/20/24 1558 Dictated By: Odalis Austin MD 02/20/24 155 Signed By: 02/20/24 155 Normal [facility] Covid-19 PCR (CVDTBH)on 09-15 SARS-CoV-2 (COVID-19) RNA KOSTAS+probe Ql (Unsp spec) Not detected Normal NOT DETECTED [facility] Comment on above: Result Comment: This test is not yet approved or cleared by the [place] FDA. When there are no FDA-approved or cleared tests available, and other criteria are met, FDA can make tests available under an emergency access mechanism called an Emergency Use Authorization (EUA). The EUA for this test is supported by the [place] of Health and Human Service's (HHS's) declaration [...] consistent with SARS-CoV-2. Performed By: #### [facility] #### [facility] [address] [place] [address] [address] Kirk Matson Vital Signs Date Time Vital Sign Value Performing Clinician Hasmukh mcdonnell 03-26-2024 09:43-0400 Heart rate 53 /min MD Mark Spaulding Work Phone: [facility] 03-26-2024 09:43-0400 Respiratory rate 16 /min MD Mark Spaulding Work Phone: [facility] 03-26-2024 09:43-0400 SaO2% (BldA) [Mass fraction] 97 % MD Mark Spaulding Work Phone: [facility] 03-26-2024 07:58-0400 Body height 175.26 cm MD Mark Spaulding Work Phone: [facility] 03-26-2024 07:58-0400 Body temperature 98.4 [degF] MD Mark Spaulding Work Phone: [facility] 03-26-2024 07:58-0400 Body weight 92.2 kg MD Mark Spaulding Work Phone: [facility] 03-26-2024 07:58-0400 Diastolic blood pressure 90 mm[Hg] MD Mark Spaulding Work Phone: [facility] 03-26-2024 07:58-0400 Systolic blood pressure 134 mm[Hg] MD Mark Spaulding Work Phone: [facility] 02-20-2024 17:44-0400 Diastolic blood pressure 79 mm[Hg] MD Mark Spaulding Work Phone: [facility] 02-20-2024 17:44-0400 Heart rate 80 /min MD Mark Spaulding Work Phone: [facility] 02-20-2024 17:44-0400 Respiratory rate 20 /min MD Mark Spaulding Work Phone: [facility] 02-20-2024 17:44-0400 SaO2% (BldA) [Mass fraction] 97 % MD Mark Spaulding Work Phone: [facility] 02-20-2024 17:44-0400 Systolic blood pressure 137 mm[Hg] MD Mark Spauldnig Work Phone: [facility] 02-20-2024 14:00-0400 Body height 175.26 cm MD Mark Spaulding Work Phone: [facility] 02-20-2024 14:00-0400 Body temperature 97.7 [degF] MD Mark Spaulding Work Phone: [facility] 02-20-2024 14:00-0400 Body weight 94.8 kg MD Mark Spaulding Work Phone: [facility] Encounters Encounter Date Encounter Type Care Provider Facility Start: 03-26-2024 End: 03-26-2024 Emergency department patient visit MD Mark Spaulding Work Phone: [facility] Work Phone: Start: 02-20-2024 End: 02-20-2024 Emergency department patient visit MD Mark Spaulding Work Phone: [facility] Work Phone: Start: 10-03-2021 End: 10-03-[address] JONATHON VALERO Facility:[facility] Start: 05-11-2021 End: 05-11-[address] DOCTOR HEALY Facility:[facility] Procedures Date Procedure Procedure Detail Performing Clinician Start: 03-26-2024 Plain chest X-ray MD Brown Work Phone: Start: 02-20-2024 Plain chest X-ray MD Brown Work Phone: Plan of Treatment Date Care Activity Detail Author Patient Education [facility] Work Phone: Patient referral [facility] Work Phone: Payers Date Payer Category Payer Medicaid [id number] 6e 2024 Self-pay [id number] 1995 Unknown [id number] 1995 Unknown [id number] 1959 Unknown [id number] Medicaid [place] H[place] [id number] Unknown [id number] Unknown [id number] Social History Date Type Detail Facility Start: 02-20-2024 End: 03-26-2024 Tobacco smoking status NHIS Smoker (finding) [facility] Start: 1995 Sex Assigned At Male F [facility] Evaluation note Note Date & Type Note Facility Evaluation note No assessment information availa [facility] Work Phone: Summary [...] and content) DATE CREATED AUTHOR 10/04/2021 [facility] DATE CREATED AUTHOR AUTHOR'S ORGANIZ ATION 04/11/2024 [facility] Care Teams (unrecognized sec tion [...] BE BASED ON THE PRIMARY CLINICAL RECORDS. [facility] [employer] [facility]. provides no warranty or guarantee of the accuracy or completeness of information in this document.
[2024-05-12 12:30] VITALS: BP 132/83; PULSE 85; TEMP 36.2; O2SAT 99; BMI 29.9
[2024-05-12] MEDS: LACTATED RINGER'S SOLUTION 1,000 ML 50 ML IV (12:52)
[2024-05-12] MEDS: CEFAZOLIN SODIUM/DEXTROSE,ISO 2 GM/50 ML PIGGYBACK IV (13:14)
--- NOTE | 2024-05-12 13:21 | PM.ORPRC ---
Procedure Note Date of procedure: 05/12/24 Pre-op diagnosis: Left Post-op diagnosis: same as pre-op Procedure: Operation: Left index finger mass excision Detailed description of procedure: After informed consent was obtained the patient brought to the operating room where monitored anesthetic was administered. Digital block was performed with a total of 10 mL equal mixture of 1% lidocaine plain and 0.5% Marcaine plain. The left hand was prepped and draped in the usual sterile fashion. The arm was elevated, exsanguinated, and the tourniquet was inflated to 200 mmHg. A zigzag incision was made starting distally at the PIP joint flexion crease on the volar aspect of the proximal phalanx of the left index finger traveling proximally and crossing the MP joint flexion crease in a zigzag fashion. Blunt dissection was carried down through soft tissue in order to preserve digital neurovascular structures. The mass was identified and easily dissected bluntly from surrounding soft tissue. 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 Mass was sent for pathology. Wound was irrigated. Tourniquet was deflated. Wound was closed with nylon suture in horizontal mattress fashion. Sterile dressing was placed. Patient was brought to the recovery room in stable condition. There were no intraoperative or immediate postoperative complications. Anesthesia: MAC and local Surgeon: Hussein Curiel Estimated blood loss (mL): 1 Pathology: other (Left index finger mass) Condition: stable Disposition: PACU
[2024-05-12] MEDS: BUPIVACAINE HCL 0.5% PF 50 MG/10 ML VIAL 5 ML INJ (13:35)
[2024-05-12] MEDS: LIDOCAINE HCL 1% 100 MG/10 ML MDV 5 ML INJ (13:36)
[2024-05-12 14:04] VITALS: BP 116/76; PULSE 93; TEMP 36.6; O2SAT 98
[2024-05-12 14:19] VITALS: BP 117/89; PULSE 73; O2SAT 99
[2024-05-12 14:34] VITALS: BP 124/74; PULSE 70; O2SAT 100
== END 2024-05-12 14:34 | disposition home or self-care (01) ==
PROVIDERS: PCP Family Medicine; Visit Provider Orthopaedic Surgery
PROC: (CPT 1810; principal; 2024-05-12 13:00)
DX: D48.19 Other specified neoplasm of uncertain behavior of connective and other soft tissue (principal); K21.9 Gastro-esophageal reflux disease without esophagitis
CPT/HCPCS: 26160; 36415; 88305; J0665; J0690; J2250; J2704; J3010

== ENCOUNTER 2024-07-09 06:50 | Outpatient (OUT) | payer BC, OTHER, SELFPAY ==
--- OUTSIDE RECORDS SUMMARY | 2024-07-09 06:54 | XMS_ITS | CCD ---
Author Organization [facility] Care Team Providers Care Wax Cutter Name Role Phone PAY, DR HOLT Admitting Unavailable MISC, DR KILGORE Primary Care Unavailable PAY, DR HOLT Attending Unavailable PAY, DR HOLT Consulting Unavailable MISC, DR KILGORE Primary Care Unavailable MARKER, DR DICKENS Attending Unavailable MARKER, DR DICKENS Consulting Unavailable MARKER, DR DICKENS Admitting Unavailable MD Mark Spaulding Primary Care Provider DAVID Kelly Emergency Provider [phone] DO Juan Patterson Emergency Provider uHssein Curiel Attending Provider [phone] Juan Patterson Admitting Unavailable Juan Patterson Attending Unavailable Mark Spaulding Primary Care Unavailable Mark Spaulding Primary Care Unavailable Jared Kelly Admitting Unavailable Jared Kelly Attending Unavailable Hussein Curiel Admitting Unavailable Hussein Curiel Attending Unavailable Medications Current Medications Medication Drug Class(es) Dates Sig (Normalized) Sig (Original) citalopram 20 mg oral tablet (2 sources) Serotonin Reuptake Inhibitor Start: 03-26-2024 take 20 mg by mouth once daily Citalopram Active 20 MG PO Daily March 26, 2024 12:00am famotidine 40 mg oral tablet (3 sources) Histamine-2 Receptor Antagonist Start: 02-20-2024 take 1 tablet by mouth once daily Famotidine (Pepcid) 40 mg tablet Active 40 MG PO Daily February 20, 2024 12:00am hydrOXYzine pamoate 25 mg oral capsule (3 sources) Antihistamine Start: 02-20-2024 Hydroxyzine Pamoate (Vistaril) 25 mg capsule Active 25 MG PO every 6 to 8 hours February 20, 2024 12:00am Completed/Discontinued Medications Medication Drug Class(es) Dates Sig (Normalized) Sig (Original) Methylprednisolone (3 sources) Corticosteroid Start: 1 End: 4 Methylprednisolone Discontinued MG May 17, 2021 12:00am February 20, 2024 1:56pm sulfamethoxazole 800 mg / trimethoprim 160 mg oral tablet (3 sources) Dihydrofolate Reductase Inhibitor Antibacterial, Sulfonamide Antimicrobial Start: 1 End: 4 take 1 tablet by mouth twice daily Sulfamethoxazole-Trim ethoprim Discontinued 1 TAB PO Twice daily May 17, 2021 12:00am February 20, 2024 1:56pm Problems Active Problems Problem Classification Problem Date Documented Da te Episodic/Chronic Cardiac dysrhythmias (1 source) Palpitations; Translations: [Palpitations] Onset: 03-26-2024 Episodic Esophageal disorders (3 sources) Gastric reflux; Translations: [Gastro-esophageal reflux disease without esophagitis] 02-20-2024 Chronic Nonspecific chest pain (6 sources) Atypical chest pain; Translations: [Other chest [...] (SUSP) EXPOS COVID-19] Onset: 10-04-2021 Viral infection (3 sources) Verruca vulgaris; Translations: [Viral wart, unspecified] [...] aPTT Coag (PPP) [Time] 28.3 s 25.1-36.5 [facility] Comment on above: A hematocrit value g reater than 55% may lead to inaccurate results in coagulation testing. Patients having hematocrit values >55% require a special collection tube for coagulation studies. Please contact the laboratory at [phone] for redraw instructions. Alanine aminotransferase [En zymatic activity/volume] in Serum or PlasmaOrdered By: Juan Patterson on 03-26-2024 ALT [Catalytic activity/Vol] 24 U/L Normal 7-52 [facility] Comment on above: Performed By: #### M G, HS TROP, CK, CMP, PT, CBC, PTT ####[facility] [address] [place] [id number] [facility] Albumin [Mass/volume] in Ser um or Plasma by Bromocresol green (BCG) dye binding methoOrdered By: Juan Patterson on 03-26-2024 Albumin BCG dye [Mass/Vol] 4.8 g/dL 3.5-5.7 [facility] Alkaline phosphatase [Enzyma tic activity/volume] in Serum or PlasmaOrdered By: Juan Patterson on 03-26-2024 ALP [Catalytic activity/Vol] 80 U/L Normal 34-104 [facility] Comment on above: Performed By: #### M G, HS TROP, CK, CMP, PT, CBC, PTT ####[facility] [address] [place] [id number] [place] Aspartate aminotransferase [ Enzymatic activity/volume] in Serum or PlasmaOrdered By: Juan Patterson on 03-26-2024 AST [Catalytic activity/Vol] 23 U/L Normal 13-39 [facility] Comment on above: Performed By: #### M G, HS TROP, CK, CMP, PT, CBC, PTT ####[place] [address] Automated basophil %Ordered By: Juan Patterson on 03-26-2024 Basophils/100 WBC (Bld) 0.6 % Normal . [facility] Comment on above: Performed By: #### M G, HS TROP, CK, CMP, PT, CBC, PTT ####[address] Automated basophil countOrde red By: Juan Patterson on 03-26-2024 Basophils (Bld) [#/Vol] 0.0 10*3/uL Normal 0.0-0.2 [facility] Comment on above: Result Comment: PERF ORMED BY: [facility] [address] [place] [address] PATHOLOGIST FLOOR POLISHER NINA KEATING M.D. Performed By: #### M G, HS TROP, CK, CMP, PT, CBC, PTT ####[address] Automated blood monocyte cou ntOrdered By: Juan Patterson on 03-26-2024 Monocytes (Bld) [#/Vol] 0.6 10*3/uL Normal 0.0-0.8 [facility] Comment on above: Performed By: #### M G, HS TROP, CK, CMP, PT, CBC, PTT ####[address] Automated eosinophil %Ordere d By: Juan Patterson on 03-26-2024 Eosinophils/100 WBC (Bld) 1.9 % Normal . [facility] Comment on above: Performed By: #### M G, HS TROP, CK, CMP, PT, CBC, PTT ####[address] Automated eosinophil countOr dered By: Juan Patterson on 03-26-2024 Eosinophils (Bld) [#/Vol] 0.1 10*3/uL Normal 0.0-0.45 [facility] Comment on above: Performed By: #### M G, HS TROP, CK, CMP, PT, CBC, PTT ####[place] [id number] [facility] Automated monocyte %Ordered By: Juan Patterson on 03-26-2024 Monocytes/100 WBC (Bld) 8.9 % Normal . [facility] Comment on above: Performed By: #### M G, HS TROP, CK, CMP, PT, CBC, PTT ####[place] [id number] [facility] Automated neutrophil %Ordere d By: Juan Patterson on 03-26-2024 Neutrophils/100 WBC (Bld) 65.5 % Normal . [facility] Comment on above: Performed By: #### M G, HS TROP, CK, CMP, PT, CBC, PTT ####[place] [id number] [facility] Bilirubin.total [Mass/volume ] in Serum or PlasmaOrdered By: Juan Patterson on 03-26-2024 Bilirubin [Mass/Vol] 0.8 mg/dL Normal 0.3-1.0 [facility] Comment on above: Performed By: #### M G, HS TROP, CK, CMP, PT, CBC, PTT ####[place] [id number] [facility] Calcium [Mass/volume] in Ser um or PlasmaOrdered By: Juan Patterson on 03-26-2024 Calcium [Mass/Vol] 10.1 mg/dL Normal 8.6-10.3 [facility] Comment on above: Performed By: #### M G, HS TROP, CK, CMP, PT, CBC, PTT ####[place] [id number] [facility] Carbon dioxide, total [Moles /volume] in Serum or PlasmaOrdered By: Juan Patterson on 03-26-2024 CO2 [Moles/Vol] 24.0 mmol/L Normal 21.0-31.0 [facility] Comment on above: Performed By: #### M G, HS TROP, CK, CMP, PT, CBC, PTT ####[address] [address] [place] Chloride [Moles/volume] in S germaine or PlasmaOrdered By: Juan Patterson on 03-26-2024 Chloride [Moles/Vol] 104 mmol/L Normal 98-107 [facility] Comment on above: Performed By: #### M G, HS TROP, CK, CMP, PT, CBC, PTT ####[address] Complete Blood Count Auto Di ffon 03-26-2024 Mean Corpuscular HGB Conc 34.8 g/dL Normal 32.5-35.6 [facility] Comment on above: Performed By: #### M G, HS TROP, CK, CMP, PT, CBC, PTT ####[address] Monocytes/100 WBC (Bld) 16.49 % Normal 0.00-20.00 [facility] Comment on above: Performed By: #### M G, HS TROP, CK, CMP, PT, CBC, PTT ####[address] NRBC% 0.2 /100{WBC} Normal 0-0.5 [facility] Comment on above: Performed By: #### M G, HS TROP, CK, CMP, PT, CBC, PTT ####[address] Comprehensive Metabolic Pane annette 03-26-2024 Albumin [Mass/Vol] 4.8 g/dL Normal 3.5-5.7 [facility] Comment on above: Performed By: #### M G, HS TROP, CK, CMP, PT, CBC, PTT ####[address] Creatinine Clr Calc Pharmacy 158.77 Normal [facility] Comment on above: Performed By: #### M G, HS TROP, CK, CMP, PT, CBC, PTT ####[address] GFR/1.73 sq M.predicted MDRD (S/P/Bld) [Vol rate/Area] mL/min/{1.73_m2} Normal [facility] Comment on above: Performed By: #### M G, HS TROP, CK, CMP, PT, CBC, PTT ####[facility] [address] Creatine kinase [Enzymatic a ctivity/volume] in Serum or PlasmaOrdered By: Juan Patterson on 03-26-2024 CK [Catalytic activity/Vol] 122 U/L Normal 30-223 [facility] Comment on above: Performed By: #### M G, HS TROP, CK, CMP, PT, CBC, PTT ####[facility] Creatinine [Mass/volume] in Serum or PlasmaOrdered By: Juan Patterson on 03-26-2024 Creatinine [Mass/Vol] 0.77 mg/dL Normal 0.70-1.30 [facility] Comment on above: Performed By: #### M G, HS TROP, CK, CMP, PT, CBC, PTT ####[facility] [place] [id number] [facility] ECG 12 lead ECGon 03-26-2024 ECG 12 lead ECG [facility] [place] [address] Electrocardiograph Report Signed Patient: Dustin Harden MR#: [id number] : 1995 Acct:[id number] Age/Sex: 29 / M ADM Date: 03/26/24 Loc: ER Room: Type: [facility] ER Attending Dr: Ordering Provider: Juan [...] Patterson DO 1437 Normal [facility] Erythrocyte distribution wid th [Ratio] by Automated countOrdered By: Juan Patterson on 03-26-2024 Erythrocyte distribution width (RBC) [Ratio] 13.4 % Normal 12.0-14.8 [facility] Comment on above: Performed By: #### M G, HS TROP, CK, CMP, PT, CBC, PTT ####[facility] [place] [address] [facility] Erythrocytes [#/volume] in B lood by Automated countOrdered By: Juan Patterson on 03-26-2024 RBC (Bld) [#/Vol] 5.28 10*6/uL Normal 3.90-5.60 [facility] Comment on above: Performed By: #### M G, HS TROP, CK, CMP, PT, CBC, PTT ####[facility] [place] [address] [facility] Glucose [Mass/volume] in Ser um or PlasmaOrdered By: Juan Patterson on 03-26-2024 Glucose [Mass/Vol] 98 mg/dL Normal 70-100 [facility] Comment on above: ADA recommended refe rence rangeRandom Glucose Reference Range is dependent on time and content of last meal. Glucose of more than 200 mg/dL in a nonstressed, ambulatory subject supports the diagnosis of Diabetes Mellitus. Result Comment: St[place] om Glucose Reference Range is dependent on time and content of last meal. Glucose of more than 200 mg/dL in a nonstressed, ambulatory subject supports the diagnosis of Diabetes Mellitus. ADA recommended reference range Performed By: #### M G, HS TROP, CK, CMP, PT, CBC, PTT ####[facility] [address] [place] [address] [facility] Hematocrit [Volume Fraction] of Blood by Automated countOrdered By: Juan Patterson on 03-26-2024 Hematocrit (Bld) [Volume fraction] 46.2 % Normal 38.8-50.0 [facility] Comment on above: Performed By: #### M G, HS TROP, CK, CMP, PT, CBC, PTT ####[place] [address] Hemoglobin [Mass/volume] in BloodOrdered By: Juan Patterson on 03-26-2024 Hemoglobin (Bld) [Mass/Vol] 16.1 g/dL Normal 13.0-17.0 [facility] Comment on above: Performed By: #### M G, HS TROP, CK, CMP, PT, CBC, PTT ####[facility] [place] [id number] [facility] INR in Platelet poor plasma by Coagulation assayOrdered By: Juan Patterson on 03-26-2024 INR Coag (PPP) [Relative time] 1.0 {INR} Normal [facility] Comment on above: INR Therapeutic [...] valves: 3 - 4.5 Performed By: #### M G, HS TROP, CK, CMP, PT, CBC, PTT ####[place] [address] [place] [id number] [facility] Leukocytes [#/volume] correc modesta for nucleated erythrocytes in Blood by Automated counOrdered By: Juan Patterson on 03-26-2024 WBC corrected for nucl RBC Auto (Bld) [#/Vol] 6.2 10*3/uL 4.1-10.5 [facility] Leukocytes [#/volume] in Blo od by Automated countOrdered By: Juan Patterson on 03-26-2024 WBC (Bld) [#/Vol] 6.2 10*3/uL Normal 4.1-10.5 [facility] Comment on above: Performed By: #### M G, HS TROP, CK, CMP, PT, CBC, PTT ####[place] [address] [place] [address] [facility] Lymphocytes [#/volume] in Bl ood by Automated countOrdered By: Juan Patterson on 03-26-2024 Lymphocytes (Bld) [#/Vol] 1.4 10*3/uL Normal 1.00-4.8 [facility] Comment on above: Performed By: #### M G, HS TROP, CK, CMP, PT, CBC, PTT ####[place] [address] [place] [id number] [facility] Lymphocytes/100 leukocytes i n Blood by Automated countOrdered By: Juan Patterson on 03-26-2024 Lymphocytes/100 WBC (Bld) 23.1 % Normal . [facility] Comment on above: Performed By: #### M G, HS TROP, CK, CMP, PT, CBC, PTT ####[place] [id number] [facility] MCH [Entitic mass] by Automa modesta countOrdered By: Juan Patterson on 03-26-2024 MCH (RBC) [Entitic mass] 30.5 pg Normal 27.5-35.2 [facility] Comment on above: Performed By: #### M G, HS TROP, CK, CMP, PT, CBC, PTT ####[place] [id number] [facility] MCHC Auto (RBC) [Mass/Vol]Or dered By: Juan Patterson on 03-26-2024 MCHC (RBC) [Mass/Vol] 34.8 g/dL 32.5-35.6 [facility] MCV [Entitic volume] by Auto mated countOrdered By: Juan Patterson on 03-26-2024 MCV (RBC) [Entitic vol] 87.6 fL Normal 83.5-101 [facility] Comment on above: Performed By: #### M G, HS TROP, CK, CMP, PT, CBC, PTT ####[place] [address] Magnesium [Mass/volume] in S germaine or PlasmaOrdered By: Juan Patterson on 03-26-2024 Magnesium [Mass/Vol] 1.8 mg/dL Low 1.9-2.7 [facility] Comment on above: Result Comment: PERF ORMED BY: [facility] [address] [place] [address] PATHOLOGIST FLOOR POLISHER NINA KEATING M.D. Performed By: #### M G, HS TROP, CK, CMP, PT, CBC, PTT ####[place] [address] Monocyte distribution width [Entitic volume] in Blood by AutomatedOrdered By: Juan Patterson on 03-26-2024 Monocyte distribution width Auto (Bld) [Entitic vol] 16.49 % 0.00-20.00 [facility] Neutrophils [#/volume] in Bl ood by Automated countOrdered By: Juan Patterson on 03-26-2024 Neutrophils (Bld) [#/Vol] 4.1 10*3/uL Normal 1.8-7.7 [facility] Comment on above: Performed By: #### M G, HS TROP, CK, CMP, PT, CBC, PTT ####[place] [address] No Panel InformationOrdered By: Juan Patterson on 03-26-2024 Estimated GFR (CKD-EPI) > 60.0 mL/Min [facility] Creatinine Clearance (Chem 158.77 [facility] Nucleated erythrocytes [Pres ence] in Blood by Automated countOrdered By: Juan Patterson on 03-26-2024 Nucleated RBC Auto Ql (Bld) 0.2 /100{WBC} 0-0.5 [facility] Partial Thromboplastin Timeo n 03-26-2024 aPTT Coag (Bld) [Time] 28.3 s Normal 25.1-36.5 [facility] Comment on above: Result Comment: A he matocrit value greater than 55% may lead to inaccurate results in coagulation testing. Patients having hematocrit values >55% require a special collection tube for coagulation studies. Please contact the laboratory at [phone] for redraw instructions. PERFORMED BY: [facility] [place] [address] PATHOLOGIST FLOOR POLISHER NINA KEATING M.D. Performed By: #### M G, HS TROP, CK, CMP, PT, CBC, PTT ####[address] [address] [facility] Platelet mean volume [Entiti c volume] in Blood by Automated countOrdered By: Juan Patterson on 03-26-2024 Platelet mean volume (Bld) [Entitic vol] 9.2 fL Normal 6.6-10.1 [facility] Comment on above: Performed By: #### M G, HS TROP, CK, CMP, PT, CBC, PTT ####[address] [address] [facility] Platelets [#/volume] in Bloo d by Automated countOrdered By: Juan Patterson on 03-26-2024 Platelets (Bld) [#/Vol] 210 10*3/uL Normal 150-450 [facility] Comment on above: Performed By: #### M G, HS TROP, CK, CMP, PT, CBC, PTT ####[address] [address] [facility] Potassium [Moles/volume] in Serum or PlasmaOrdered By: Juan Patterson on 03-26-2024 Potassium [Moles/Vol] 3.9 mmol/L Normal 3.5-5.1 [facility] Comment on above: Performed By: #### M G, HS TROP, CK, CMP, PT, CBC, PTT ####[address] [address] [facility] Protein [Mass/volume] in Ser um or PlasmaOrdered By: Juan Patterson on 03-26-2024 Protein [Mass/Vol] 8.0 g/dL Normal 6.4-8.9 [facility] Comment on above: Performed By: #### M G, HS TROP, CK, CMP, PT, CBC, PTT ####[address] Prothrombin time (PT)Ordered By: Juan Patterson on 03-26-2024 PT Coag (PPP) [Time] 11.1 s Normal 9.0-12.9 [facility] Comment on above: A hematocrit value g reater than 55% may lead to inaccurate results in coagulation testing. Patients having hematocrit values >55% require a special collection tube for coagulation studies. Please contact the laboratory at [phone] for redraw instructions. Result Comment: A he matocrit value greater than 55% may lead to inaccurate results in coagulation testing. Patients having hematocrit values >55% require a special collection tube for coagulation studies. Please contact the laboratory at [phone] for redraw instructions. Performed By: #### M G, HS TROP, CK, CMP, PT, CBC, PTT ####[address] Serum globulin measurement b y calculation (mass/volume)Ordered By: Juan Patterson on 03-26-2024 Globulin (S) [Mass/Vol] 3.2 g/dL [facility] Comment on above: Performed By: #### M G, HS TROP, CK, CMP, PT, CBC, PTT ####[address] Serum or plasma albumin/glob ulin mass ratioOrdered By: Juan Patterson on 03-26-2024 Albumin/Globulin [Mass ratio] 1.5 {ratio} [facility] Comment on above: Performed By: #### M G, HS TROP, CK, CMP, PT, CBC, PTT ####[address] Serum or plasma anion gap de terminationOrdered By: Juan Patterson on 03-26-2024 Anion gap [Moles/Vol] 13.9 mmol/L Normal 6.0-15.0 [facility] Comment on above: Performed By: #### M G, HS TROP, CK, CMP, PT, CBC, PTT ####[place] [address] [place] [id number] [facility] Sodium [Moles/volume] in Ser um or PlasmaOrdered By: Juan Patterson on 03-26-2024 Sodium [Moles/Vol] 138 mmol/L Normal 136-145 [facility] Comment on above: Performed By: #### M G, HS TROP, CK, CMP, PT, CBC, PTT ####[place] [id number] [facility] Troponin I High Sensitivityo n 03-26-2024 Troponin I High Sensitivity < 2.3 Normal 0.0-20.0 [facility] Comment on above: Result Comment: PERF ORMED BY: [place] [address] PATHOLOGIST FLOOR POLISHER NINA KEATING M.D. Performed By: #### L IPASE, TSH3, BMP, PTT, CBC, HS TROP, BNP, CK, HEPATIC, PT #### [address] Troponin I.cardiac [Mass/vol ume] in Serum or Plasma by Detection limit <= 0.01 ng/Ordered By: Juan Patterson on 03-26-2024 Troponin I.cardiac DL <= 0.01 ng/mL [Mass/Vol] < 2.3 pg/mL 0.0-20.0 [facility] Urea nitrogen [Mass/volume] in Serum or PlasmaOrdered By: Juan Patterson on 03-26-2024 Urea nitrogen [Mass/Vol] 15 mg/dL Normal 7-25 [facility] Comment on above: Performed By: #### M G, HS TROP, CK, CMP, PT, CBC, PTT ####[place] [id number] [facility] XR chest 1V portableon 03-26 XR chest 1V portable [facility] [address] [place] [address] [place] [address] XRay Report Signed Patient: Dustin Harden MR#: [id number] : 1995 Acct:[id number] Age/Sex: 29 / M ADM Date: 03/26/24 Loc: ER Room: Type: [facility] ER Attending Dr: Copies to: Juan [...] Urban Jr., D.OLeroy03/26/2024 8:53 AM Dictation Location: [place] [address] Transcribed By: [facility] 03/26/24852 Dictated By: Gallo Urban Jr, DO 03/26/2447 Signed By: 03/26/24 0853 Normal [facility] Activated partial thrombopla stin time (aPTT) in platelet poor plasma by coagulation aOrdered By: Manuel Mccartney on 02-20-2024 aPTT Coag (PPP) [Time] 30.0 s 25.1-36.5 [facility] Comment on above: A hematocrit value g reater than 55% may lead to inaccurate results in coagulation testing. Patients having hematocrit values >55% require a special collection tube for coagulation studies. Please contact the laboratory at [phone] for redraw instructions. Alanine aminotransferase [En zymatic activity/volume] in Serum or PlasmaOrdered By: Manuel Mccartney on 02-20-2024 ALT [Catalytic activity/Vol] 36 U/L Normal 7-52 [facility] Comment on above: Performed By: #### L IPASE, TSH3, BMP, PTT, CBC, HS TROP, BNP, CK, HEPATIC, PT ####[facility] [address] [place] [id number] [facility] Albumin [Mass/volume] in Ser um or Plasma by Bromocresol green (BCG) dye binding methoOrdered By: Manuel Mccartney on 02-20-2024 Albumin BCG dye [Mass/Vol] 5.0 g/dL 3.5-5.7 [facility] Alkaline phosphatase [Enzyma tic activity/volume] in Serum or PlasmaOrdered By: Manuel Mccartney on 02-20-2024 ALP [Catalytic activity/Vol] 76 U/L Normal 34-104 [facility] Comment on above: Performed By: #### L IPASE, TSH3, BMP, PTT, CBC, HS TROP, BNP, CK, HEPATIC, PT ####[facility] Aspartate aminotransferase [ Enzymatic activity/volume] in Serum or PlasmaOrdered By: Manuel Mccartney on 02-20-2024 AST [Catalytic activity/Vol] 26 U/L Normal 13-39 [facility] Comment on above: Performed By: #### L IPASE, TSH3, BMP, PTT, CBC, HS TROP, BNP, CK, HEPATIC, PT ####[facility] Automated basophil %Ordered By: Manuel Mccartney on 02-20-2024 Basophils/100 WBC (Bld) 0.5 % Normal . [facility] Comment on above: Performed By: #### L IPASE, TSH3, BMP, PTT, CBC, HS TROP, BNP, CK, HEPATIC, PT #### [facility] [address] Automated basophil countOrde red By: Manuel Mccartney on 02-20-2024 Basophils (Bld) [#/Vol] 0.1 10*3/uL Normal 0.0-0.2 [facility] Comment on above: Result Comment: PERF ORMED BY: [place] [address] PATHOLOGIST FLOOR POLISHER NINA KEATING M.D. Performed By: #### L IPASE, TSH3, BMP, PTT, CBC, HS TROP, BNP, CK, HEPATIC, PT #### [address] Automated blood monocyte cou ntOrdered By: Manuel Mccartney on 02-20-2024 Monocytes (Bld) [#/Vol] 0.8 10*3/uL Normal 0.0-0.8 [facility] Comment on above: Performed By: #### L IPASE, TSH3, BMP, PTT, CBC, HS TROP, BNP, CK, HEPATIC, PT #### [address] Automated eosinophil %Ordere d By: Manuel Mccartney on 02-20-2024 Eosinophils/100 WBC (Bld) 0.6 % Normal . [facility] Comment on above: Performed By: #### L IPASE, TSH3, BMP, PTT, CBC, HS TROP, BNP, CK, HEPATIC, PT #### [address] Automated eosinophil countOr dered By: Manuel Mccartney on 02-20-2024 Eosinophils (Bld) [#/Vol] 0.1 10*3/uL Normal 0.0-0.45 [facility] [facility] Comment on above: Performed By: #### L IPASE, TSH3, BMP, PTT, CBC, HS TROP, BNP, CK, HEPATIC, PT #### [address] Automated monocyte %Ordered By: Manuel Mccartney on 02-20-2024 Monocytes/100 WBC (Bld) 7.3 % Normal . [facility] Comment on above: Performed By: #### L IPASE, TSH3, BMP, PTT, CBC, HS TROP, BNP, CK, HEPATIC, PT #### [address] Automated neutrophil %Ordere d By: Manuel Mccartney on 02-20-2024 Neutrophils/100 WBC (Bld) 79.8 % Normal . [facility] Comment on above: Performed By: #### L IPASE, TSH3, BMP, PTT, CBC, HS TROP, BNP, CK, HEPATIC, PT #### [address] BNP ser/plasOrdered By: Manuel Mccartney on 02-20-2024 Natriuretic peptide B (Bld) [Mass/Vol] 7.0 pg/mL Normal 5-100 [facility] Comment on above: Result Comment: PERF ORMED BY: [place] [address] PATHOLOGIST FLOOR POLISHER NINA KEATING M.D. Performed By: #### L IPASE, TSH3, BMP, PTT, CBC, HS TROP, BNP, CK, HEPATIC, PT #### [address] Basic Metabolic Panelon 05-0 Creatinine Clr Calc Pharmacy 137.62 Normal [facility] Comment on above: Performed By: #### L IPASE, TSH3, BMP, PTT, CBC, HS TROP, BNP, CK, HEPATIC, PT #### [address] Performed By: #### L IPASE, TSH3, BMP, PTT, CBC, HS TROP, BNP, CK, HEPATIC, PT ####[address] GFR/1.73 sq M.predicted MDRD (S/P/Bld) [Vol rate/Area] mL/min/{1.73_m2} Normal [facility] Comment on above: Performed By: #### L IPASE, TSH3, BMP, PTT, CBC, HS TROP, BNP, CK, HEPATIC, PT #### [address] Performed By: #### L IPASE, TSH3, BMP, PTT, CBC, HS TROP, BNP, CK, HEPATIC, PT ####[address] Bilirubin.direct [Mass/volum e] in Serum or PlasmaOrdered By: Manuel Mccartney on 02-20-2024 Bilirubin.direct [Mass/Vol] 0.10 mg/dL 0.03-0.18 [facility] Bilirubin.total [Mass/volume ] in Serum or PlasmaOrdered By: Manuel Mccartney on 02-20-2024 Bilirubin [Mass/Vol] 0.6 mg/dL Normal 0.3-1.0 [facility] Comment on above: Performed By: #### L IPASE, TSH3, BMP, PTT, CBC, HS TROP, BNP, CK, HEPATIC, PT ####[address] [place] [address] [place] Calcium [Mass/volume] in Ser um or PlasmaOrdered By: Manule Mccartney on 02-20-2024 Calcium [Mass/Vol] 10.1 mg/dL Normal 8.6-10.3 [facility] Comment on above: Performed By: #### L IPASE, TSH3, BMP, PTT, CBC, HS TROP, BNP, CK, HEPATIC, PT #### [facility] [address] Performed By: #### L IPASE, TSH3, BMP, PTT, CBC, HS TROP, BNP, CK, HEPATIC, PT ####[address] Carbon dioxide, total [Moles /volume] in Serum or PlasmaOrdered By: Manuel Mccartney on 02-20-2024 CO2 [Moles/Vol] 25.5 mmol/L Normal 21.0-31.0 [facility] Comment on above: Performed By: #### L IPASE, TSH3, BMP, PTT, CBC, HS TROP, BNP, CK, HEPATIC, PT #### [facility] [address] [place] [address] Performed By: #### L IPASE, TSH3, BMP, PTT, CBC, HS TROP, BNP, CK, HEPATIC, PT ####[address] Chloride [Moles/volume] in S germaine or PlasmaOrdered By: Manuel Mccartney on 02-20-2024 Chloride [Moles/Vol] 105 mmol/L Normal 98-107 [facility] Comment on above: Performed By: #### L IPASE, TSH3, BMP, PTT, CBC, HS TROP, BNP, CK, HEPATIC, PT #### [facility] [address] Performed By: #### L IPASE, TSH3, BMP, PTT, CBC, HS TROP, BNP, CK, HEPATIC, PT ####[address] Complete Blood Count Auto Di ffon 02-20-2024 Mean Corpuscular HGB Conc 34.4 g/dL Normal 32.5-35.6 [facility] Comment on above: Performed By: #### L IPASE, TSH3, BMP, PTT, CBC, HS TROP, BNP, CK, HEPATIC, PT #### [address] Monocytes/100 WBC (Bld) 16.28 % Normal 0.00-20.00 [facility] Comment on above: Performed By: #### L IPASE, TSH3, BMP, PTT, CBC, HS TROP, BNP, CK, HEPATIC, PT #### [address] NRBC% 0.1 /100{WBC} Normal 0-0.5 [facility] Comment on above: Performed By: #### L IPASE, TSH3, BMP, PTT, CBC, HS TROP, BNP, CK, HEPATIC, PT #### [address] Creatine kinase [Enzymatic a ctivity/volume] in Serum or PlasmaOrdered By: Manuel Mccartney on 02-20-2024 CK [Catalytic activity/Vol] 100 U/L Normal 30-223 [facility] Comment on above: Performed By: #### L IPASE, TSH3, BMP, PTT, CBC, HS TROP, BNP, CK, HEPATIC, PT #### [address] Creatinine [Mass/volume] in Serum or PlasmaOrdered By: Manuel Mccartney on 02-20-2024 Creatinine [Mass/Vol] 0.90 mg/dL Normal 0.70-1.30 [facility] Comment on above: Performed By: #### L IPASE, TSH3, BMP, PTT, CBC, HS TROP, BNP, CK, HEPATIC, PT #### [address] Performed By: #### L IPASE, TSH3, BMP, PTT, CBC, HS TROP, BNP, CK, HEPATIC, PT ####[address] ECG 12 lead ECGon 02-20-2024 ECG 12 lead ECG [facility] [place] [address] [place] [address] Electrocardiograph Report Signed Patient: Dustin Harden MR#: [id number] : 1995 Acct:[id number] Age/Sex: 29 / M ADM Date: 02/20/24 [...] ECGs available Confirmed by MANUEL MCCARTNEY DO ([id number]) on 02/20/2024 3:42:48 PM Referred By: Electronically Signed By:MANUEL MCCARTNEY DO Transcribed By: MUS Signed By Manuel Mccartney DO 02/19 1542 Normal [facility] Erythrocyte distribution wid th [Ratio] by Automated countOrdered By: Manuel Mccartney on 02-20-2024 Erythrocyte distribution width (RBC) [Ratio] 13.2 % Normal 12.0-14.8 [facility] Comment on above: Performed By: #### L IPASE, TSH3, BMP, PTT, CBC, HS TROP, BNP, CK, HEPATIC, PT #### [facility] [address] [place] [address] [place] Erythrocytes [#/volume] in B lood by Automated countOrdered By: Manuel Mccartney on 02-20-2024 RBC (Bld) [#/Vol] 5.47 10*6/uL Normal 3.90-5.60 [facility] Comment on above: Performed By: #### L IPASE, TSH3, BMP, PTT, CBC, HS TROP, BNP, CK, HEPATIC, PT #### [facility] [address] Glucose [Mass/volume] in Ser um or PlasmaOrdered By: Manuel Mccartney on 02-20-2024 Glucose [Mass/Vol] 96 mg/dL Normal 70-100 [facility] Comment on above: ADA recommended refe rence rangeRandom Glucose Reference Range is dependent on time and content of last meal. Glucose of more than 200 mg/dL in a nonstressed, ambulatory subject supports the diagnosis of Diabetes Mellitus. Result Comment: Storden om Glucose Reference Range is dependent on time and content of last meal. Glucose of more than 200 mg/dL in a nonstressed, ambulatory subject supports the diagnosis of Diabetes Mellitus. ADA recommended reference range Performed By: #### L IPASE, TSH3, BMP, PTT, CBC, HS TROP, BNP, CK, HEPATIC, PT #### [facility] [address] [place] [address] Performed By: #### L IPASE, TSH3, BMP, PTT, CBC, HS TROP, BNP, CK, HEPATIC, PT ####[facility] [place] [address] Hematocrit [Volume Fraction] of Blood by Automated countOrdered By: Manuel Mccartney on 02-20-2024 Hematocrit (Bld) [Volume fraction] 47.6 % Normal 38.8-50.0 [facility] Comment on above: Performed By: #### L IPASE, TSH3, BMP, PTT, CBC, HS TROP, BNP, CK, HEPATIC, PT #### [facility] [address] [place] [address] Hemoglobin [Mass/volume] in BloodOrdered By: Manuel Mccartney on 02-20-2024 Hemoglobin (Bld) [Mass/Vol] 16.4 g/dL Normal 13.0-17.0 [facility] Comment on above: Performed By: #### L IPASE, TSH3, BMP, PTT, CBC, HS TROP, BNP, CK, HEPATIC, PT #### [facility] [address] [place] [address] Hepatic Panelon 02-20-2024 Albumin [Mass/Vol] 5.0 g/dL Normal 3.5-5.7 [facility] Comment on above: Performed By: #### L IPASE, TSH3, BMP, PTT, CBC, HS TROP, BNP, CK, HEPATIC, PT ####[facility] Bilirubin,Indirect 0.5 mg/dL Normal [facility] Comment on above: Performed By: #### L IPASE, TSH3, BMP, PTT, CBC, HS TROP, BNP, CK, HEPATIC, PT ####[facility] Bilirubin.indirect [Mass/Vol] 0.10 mg/dL Normal 0.03-0.18 [facility] Comment on above: Performed By: #### L IPASE, TSH3, BMP, PTT, CBC, HS TROP, BNP, CK, HEPATIC, PT ####[facility] INR in Platelet poor plasma by Coagulation assayOrdered By: Manuel Mccartney on 02-20-2024 INR Coag (PPP) [Relative time] 0.9 {INR} Normal [facility] Comment on above: INR Therapeutic [...] HS TROP, BNP, CK, HEPATIC, PT #### [facility] [address] Leukocytes [#/volume] correc modesta for nucleated erythrocytes in Blood by Automated counOrdered By: Manuel Mccartney on 02-20-2024 WBC corrected for nucl RBC Auto (Bld) [#/Vol] 10.4 10*3/uL 4.1-10.5 [facility] Leukocytes [#/volume] in Blo od by Automated countOrdered By: Manuel Mccartney on 02-20-2024 WBC (Bld) [#/Vol] 10.4 10*3/uL Normal 4.1-10.5 [facility] Comment on above: Performed By: #### L IPASE, TSH3, BMP, PTT, CBC, HS TROP, BNP, CK, HEPATIC, PT #### [facility] [address] [place] [id number] [place] Lipase [Enzymatic activity/v olume] in Serum or PlasmaOrdered By: Manuel Mccartney on 02-20-2024 Lipase [Catalytic activity/Vol] 6.0 U/L Low 11.0-82.0 [facility] Comment on above: Performed By: #### L IPASE, TSH3, BMP, PTT, CBC, HS TROP, BNP, CK, HEPATIC, PT ####[facility] [address] [place] [address] [place] Lymphocytes [#/volume] in Bl ood by Automated countOrdered By: Manuel Mccartney on 02-20-2024 Lymphocytes (Bld) [#/Vol] 1.2 10*3/uL Normal 1.00-4.8 [facility] Comment on above: Performed By: #### L IPASE, TSH3, BMP, PTT, CBC, HS TROP, BNP, CK, HEPATIC, PT #### [facility] [address] [place] [id number] [place] Lymphocytes/100 leukocytes i n Blood by Automated countOrdered By: Manuel Mccartney on 02-20-2024 Lymphocytes/100 WBC (Bld) 11.8 % Normal . [facility] Comment on above: Performed By: #### L IPASE, TSH3, BMP, PTT, CBC, HS TROP, BNP, CK, HEPATIC, PT #### [facility] [address] [place] [id number] [place] MCH [Entitic mass] by Automa modesta countOrdered By: Manuel Mccartney on 02-20-2024 MCH (RBC) [Entitic mass] 29.9 pg Normal 27.5-35.2 [facility] Comment on above: Performed By: #### L IPASE, TSH3, BMP, PTT, CBC, HS TROP, BNP, CK, HEPATIC, PT #### [facility] [address] MCHC Auto (RBC) [Mass/Vol]Or dered By: Manuel Mccartney on 02-20-2024 MCHC (RBC) [Mass/Vol] 34.4 g/dL 32.5-35.6 [facility] MCV [Entitic volume] by Auto mated countOrdered By: Manuel Mccartney on 02-20-2024 MCV (RBC) [Entitic vol] 87.0 fL Normal 83.5-101 [facility] Comment on above: Performed By: #### L IPASE, TSH3, BMP, PTT, CBC, HS TROP, BNP, CK, HEPATIC, PT #### [facility] [address] Monocyte distribution width [Entitic volume] in Blood by AutomatedOrdered By: Manuel Mccartney on 02-20-2024 Monocyte distribution width Auto (Bld) [Entitic vol] 16.28 % 0.00-20.00 [facility] Neutrophils [#/volume] in Bl ood by Automated countOrdered By: Manuel Mccartney on 02-20-2024 Neutrophils (Bld) [#/Vol] 8.3 10*3/uL High 1.8-7.7 [facility] Comment on above: Performed By: #### L IPASE, TSH3, BMP, PTT, CBC, HS TROP, BNP, CK, HEPATIC, PT #### [facility] [address] No Panel InformationOrdered By: Manuel Mccartney on 02-20-2024 Estimated GFR (CKD-EPI) > 60.0 mL/Min [facility] Creatinine Clearance (Chem 137.62 [facility] Nucleated erythrocytes [Pres ence] in Blood by Automated countOrdered By: Manuel Mccartney on 02-20-2024 Nucleated RBC Auto Ql (Bld) 0.1 /100{WBC} 0-0.5 [facility] Partial Thromboplastin Timeo n 02-20-2024 aPTT Coag (Bld) [Time] 30.0 s Normal 25.1-36.5 [facility] Comment on above: Result Comment: A he matocrit value greater than 55% may lead to inaccurate results in coagulation testing. Patients having hematocrit values >55% require a special collection tube for coagulation studies. Please contact the laboratory at [phone] for redraw instructions. PERFORMED BY: [place] [address] PATHOLOGIST FLOOR POLISHER NINA KEATING M.D. Performed By: #### L IPASE, TSH3, BMP, PTT, CBC, HS TROP, BNP, CK, HEPATIC, PT #### [facility] [address] [place] [address] Platelet mean volume [Entiti c volume] in Blood by Automated countOrdered By: Manuel Mccartney on 02-20-2024 Platelet mean volume (Bld) [Entitic vol] 9.3 fL Normal 6.6-10.1 [facility] Comment on above: Performed By: #### L IPASE, TSH3, BMP, PTT, CBC, HS TROP, BNP, CK, HEPATIC, PT #### [facility] [address] [place] [address] Platelets [#/volume] in Bloo d by Automated countOrdered By: Manuel Mccartney on 02-20-2024 Platelets (Bld) [#/Vol] 217 10*3/uL Normal 150-450 [facility] Comment on above: Performed By: #### L IPASE, TSH3, BMP, PTT, CBC, HS TROP, BNP, CK, HEPATIC, PT #### [facility] [address] [place] [address] [place] Potassium [Moles/volume] in Serum or PlasmaOrdered By: Manuel Mccartney on 02-20-2024 Potassium [Moles/Vol] 3.8 mmol/L Normal 3.5-5.1 [facility] Comment on above: Performed By: #### L IPASE, TSH3, BMP, PTT, CBC, HS TROP, BNP, CK, HEPATIC, PT #### [facility] [address] Performed By: #### L IPASE, TSH3, BMP, PTT, CBC, HS TROP, BNP, CK, HEPATIC, PT ####[facility] Protein [Mass/volume] in Ser um or PlasmaOrdered By: Manuel Mccartney on 02-20-2024 Protein [Mass/Vol] 8.3 g/dL Normal 6.4-8.9 [facility] Comment on above: Performed By: #### L IPASE, TSH3, BMP, PTT, CBC, HS TROP, BNP, CK, HEPATIC, PT ####[address] Prothrombin time (PT)Ordered By: Manuel Mccartney on 02-20-2024 PT Coag (PPP) [Time] 10.9 s Normal 9.0-12.9 [facility] Comment on above: A hematocrit value g reater than 55% may lead to inaccurate results in coagulation testing. Patients having hematocrit values >55% require a special collection tube for coagulation studies. Please contact the laboratory at [phone] for redraw instructions. Result Comment: A he matocrit value greater than 55% may lead to inaccurate results in coagulation testing. Patients having hematocrit values >55% require a special collection tube for coagulation studies. Please contact the laboratory at [phone] for redraw instructions. Performed By: #### L IPASE, TSH3, BMP, PTT, CBC, HS TROP, BNP, CK, HEPATIC, PT #### [facility] [address] Serum globulin measurement b y calculation (mass/volume)Ordered By: Manuel Mccartney on 02-20-2024 Globulin (S) [Mass/Vol] 3.3 g/dL Normal [facility] Comment on above: Performed By: #### L IPASE, TSH3, BMP, PTT, CBC, HS TROP, BNP, CK, HEPATIC, PT ####[address] Serum or plasma albumin/glob ulin mass ratioOrdered By: Manuel Mccartney on 02-20-2024 Albumin/Globulin [Mass ratio] 1.5 {ratio} Normal [facility] Comment on above: Performed By: #### L IPASE, TSH3, BMP, PTT, CBC, HS TROP, BNP, CK, HEPATIC, PT ####[facility] [address] Serum or plasma anion gap de terminationOrdered By: Manuel Mccartney on 02-20-2024 Anion gap [Moles/Vol] 12.3 mmol/L Normal 6.0-15.0 [facility] Comment on above: Performed By: #### L IPASE, TSH3, BMP, PTT, CBC, HS TROP, BNP, CK, HEPATIC, PT #### [facility] [address] Performed By: #### L IPASE, TSH3, BMP, PTT, CBC, HS TROP, BNP, CK, HEPATIC, PT ####[address] Serum or plasma non-glucuron idated bilirubin measurement (mass/volume)Ordered By: Manuel Mccartney on 02-20-2024 Bilirubin.indirect [Mass/Vol] 0.5 mg/dL [facility] Sodium [Moles/volume] in Ser um or PlasmaOrdered By: Manuel Mccartney on 02-20-2024 Sodium [Moles/Vol] 139 mmol/L Normal 136-145 [facility] Comment on above: Performed By: #### L IPASE, TSH3, BMP, PTT, CBC, HS TROP, BNP, CK, HEPATIC, PT #### [facility] [address] Performed By: #### L IPASE, TSH3, BMP, PTT, CBC, HS TROP, BNP, CK, HEPATIC, PT ####[address] Thyrotropin [Units/volume] i n Serum or PlasmaOrdered By: Manuel Mccartney on 02-20-2024 TSH Qn 2.00 m[IU]/L Normal 0.45-5.33 [facility] Comment on above: Result Comment: PERF ORMED BY: [place] [address] PATHOLOGIST FLOOR POLISHER NINA KEATING M.D. Performed By: #### L IPASE, TSH3, BMP, PTT, CBC, HS TROP, BNP, CK, HEPATIC, PT #### [facility] [address] Performed By: #### L IPASE, TSH3, BMP, PTT, CBC, HS TROP, BNP, CK, HEPATIC, PT ####[facility] Troponin I High Sensitivityo n 02-20-2024 Troponin I High Sensitivity < 2.3 Normal 0.0-20.0 [facility] Comment on above: Result Comment: PERF ORMED BY: [place] [address] PATHOLOGIST FLOOR POLISHER NINA KEATING M.D. Performed By: #### L IPASE, TSH3, BMP, PTT, CBC, HS TROP, BNP, CK, HEPATIC, PT #### [facility] [address] [place] [address] Troponin I.cardiac [Mass/vol ume] in Serum or Plasma by Detection limit <= 0.01 ng/Ordered By: Manuel Mccartney on 02-20-2024 Troponin I.cardiac DL <= 0.01 ng/mL [Mass/Vol] < 2.3 pg/mL 0.0-20.0 [facility] Urea nitrogen [Mass/volume] in Serum or PlasmaOrdered By: Manuel Mccartney on 02-20-2024 Urea nitrogen [Mass/Vol] 14 mg/dL Normal 7-25 [facility] Comment on above: Performed By: #### L IPASE, TSH3, BMP, PTT, CBC, HS TROP, BNP, CK, HEPATIC, PT #### [facility] [address] [place] [address] Performed By: #### L IPASE, TSH3, BMP, PTT, CBC, HS TROP, BNP, CK, HEPATIC, PT ####[facility] [place] [address] [facility] XR chest 2V*on 02-20-2024 XR chest 2V* [facility] [place] [address] [place] [address] XRay Report Signed Patient: Dustin Harden MR#: [id number] : 1995 Acct:[id number] Age/Sex: 29 / M ADM Date: 02/20/24 [...] Odalis Austin M.D.02/20/2024 3:53 PM Dictation Location: [place] [address] Transcribed By: [facility] 02/20/24 1553 Dictated By: Odalis Austin MD 02/20/24 1552 Signed By: 02/20/24 1553 Normal [facility] Covid-19 PCR (CVDTBH)on 09-15 SARS-CoV-2 (COVID-19) RNA KOSTAS+probe Ql (Unsp spec) Not detected Normal NOT DETECTED [facility] Comment on above: Result Comment: This test is not yet approved or cleared by the [place] FDA. When there are no FDA-approved or cleared tests available, and other criteria are met, FDA can make tests available under an emergency access mechanism called an Emergency Use Authorization (EUA). The EUA for this test is supported by the [place] of Health and Human Service's (HHS's) declaration [...] consistent with SARS-CoV-2. Performed By: #### [facility] #### [facility] [address] [place] [address] Dr. Kirk Matson Vital Signs Date Time Vital Sign Value Performing Clinician Faci lity 03-26-2024 09:43-0400 Heart rate 53 /min MD Mark Spaulding Work Phone: [facility] 03-26-2024 09:43-0400 Respiratory rate 16 /min MD Mark Spaulding Work Phone: [facility] 03-26-2024 09:43-0400 SaO2% (BldA) [Mass fraction] 97 % MD Mark Spaulding Work Phone: [facility] 03-26-2024 07:58-0400 Body height 175.26 cm MD Mark Spaulding Work Phone: [facility] 03-26-2024 07:58-0400 Body temperature 98.4 [degF] MD Mark Spaulding Work Phone: [facility] 03-26-2024 07:58-0400 Body weight 92.2 kg MD Mark Spaulding Work Phone: [facility] 03-26-2024 07:58-0400 Diastolic blood pressure 90 mm[Hg] MD Mark Spaulding Work Phone: [facility] 03-26-2024 07:58-0400 Systolic blood pressure 134 mm[Hg] MD Mark Spaulding Work Phone: [facility] 02-20-2024 17:44-0400 Diastolic blood pressure 79 mm[Hg] MD Mark Spaulding Work Phone: [facility] 02-20-2024 17:44-0400 Heart rate 80 /min MD Mark Spaulding Work Phone: [facility] 02-20-2024 17:44-0400 Respiratory rate 20 /min MD Mark Spaulding Work Phone: [facility] 02-20-2024 17:44-0400 SaO2% (BldA) [Mass fraction] 97 % MD Mark Spaulding Work Phone: [facility] 02-20-2024 17:44-0400 Systolic blood pressure 137 mm[Hg] MD Mark Spaulding Work Phone: [facility] 02-20-2024 14:00-0400 Body height 175.26 cm MD Mark Spaulding Work Phone: [facility] 02-20-2024 14:00-0400 Body temperature 97.7 [degF] MD Mark Spaulding Work Phone: [facility] 02-20-2024 14:00-0400 Body weight 94.8 kg MD Mark Spaulding Work Phone: [facility] Encounters Encounter Date Encounter Type Care Provider Facility Start: 05-12-2024 End: 05-12-2024 ambulatory MD Mark Spaulding Work Phone: [facility] Work Phone: Start: 05-12-2024 End: 05-12-2024 Departed Referred MD Mark Spaulding Work Phone: [facility] Start: 03-26-2024 End: 03-26-2024 Emergency department patient visit MD Mark Spaulding Work Phone: [facility]Emer[facility] Work Phone: Start: 02-20-2024 End: 02-20-2024 Emergency department patient visit MD Mark Spaulding Work Phone: [facility] Work Phone: Start: 10-03-2021 End: 12-20-[address] HOLT PAY Facility:[facility] Start: 05-11-2021 End: 05-11-[address] DOCTOR HEALY Facility:[facility] Procedures Date Procedure Procedure Detail Performing Clinician Start: 03-26-2024 Plain chest X-ray MD Brown Work Phone: Start: 02-20-2024 Plain chest X-ray MD Brown Work Phone: Plan of Treatment Date Care Activity Detail Author Patient Education [facility] Work Phone: Patient referral [facility] Work Phone: Payers Date Payer Category Payer Medicaid [id number] 6e 2024 Self-pay [id number] 1995 Unknown [id number] 1995 Unknown [id number] 1959 Unknown [id number] [place] H[place] 105 [id number] Unknown [id number] Unknown [id number] Unknown [id number] Social History Date Type Detail Facility Start: 02-20-2024 End: 03-26-2024 Tobacco smoking status NHIS Smoker (finding) [facility] Start: 1995 Sex Assigned At Male F [facility] Evaluation note Note Date & Type Note Facility Evaluation note No assessment information avail[facility] [facility] Work Phone: Summary Purpose Family History No Family History Records Found Relationship Condition Age at Onset Recorded Date/T bhavesh grandparent Diabetes mellitus Unknown Advance Directives No Advanced Directives Records Found Advance Directive Response Recorded Date/ Time Advance Directives No May 17 7:11am Chief Complaint and Reason for Visit Chief Complaint chest pain, weakness Chief Complaint chest pain, weakness chest pain Chief Complaint chest pain, weakness chest pain Unknown Additional Source Comments (unrecognized sect ion and content) No Status Records FoundNo Status Records Found INFORMATION SOURCE (unrecogn ized section and content) DATE CREATED AUTHOR 10/04/2021 [facility] DATE CREATED AUTHOR AUTHOR'S ORGANIZ ATION 05/15/2024 [facility] Care Teams (unrecognized sec tion [...] March 26, 2024 End: March 26, 2024 Team Status: Inactive Member Role Status Edmond Curiel Attending Provider Active Start: May 12, 2024 End: May 12, 2024 Goals (unrecognized section and content) Goals may be documented in a n alternate sectionGoals may be documented in an alternate sectionGoals may be documented in an [...] BE BASED ON THE PRIMARY CLINICAL RECORDS. [facility] [facility]. provides no warranty or guarantee of the accuracy or completeness of information in this document.
--- NOTE | 2024-07-09 07:05 | NM_ITS ---
Patient Name: RON WATSON MR#: [id number] : 1995 Exam Date: 07/09/2024 Ordering Doctor: DR Mark Spaulding . RADIOLOGY REPORT PROCEDURE: NM HUMPHREY PERF SPECT REST STR COMPARISON: None. INDICATIONS: CHEST PAIN TECHNIQUE: Exam Description: Stress/Rest one day protocol gated SPECT Rest Imagin.9 mCi Tc-99m Cardiolite IV on 07/10/2024 Stress Imaging 30.3 mCi Tc-99m Cardiolite IV on 07/10/2024 Exercise Protocol: 0.4 mg Lexiscan given IV Heart Rate (bpm): Rest: 63 Max: 166 PMHR: 86 Blood Pressure: Rest: 118/86 Max: 158/86 Exercise Time: Minutes: 10 Seconds: 23 Stage Reached: Stage: 4 Mets 13.4 Symptoms: SHORTNESS OF BREATH Rest and peak stress ECG findings were normal and the exercise portion of the study was normal per attending physician Dr. Coelho . For more details please see separate cardiac stress test report. FINDINGS: QUALITY OF STUDY: Excellent. PERFUSION DEFECT: None. LOCATION: N/A SIZE: N/A. SEVERITY: N/A. TYPE: N/A. WALL MOTION: Normal. LV SIZE: Normal. 110 mL. TID / TCD: None; 0.9 LVEF: Normal. Calculated EF 66%. SUMMARY: Myocardial perfusion imaging study is NORMAL. CONCLUSION: 1. Normal nuclear medicine myocardial perfusion scan. Dictated by: Hussein Kaufman M.D. on 07/10/2024 at 14:23 Approved by: Hussein Kaufman M.D. on 07/10/2024 at 14:30
--- NOTE | 2024-07-09 09:56 | PC.NURSE ---
Nursing Note Cardiac Stress Test Reviewed: Medication, allergies and patient history reviewed. Stress Test: [ x Patient tolerated stress test well. [ ] Patient unable to tolerate walking on treadmill. Switched to Lexiscan stress test. [ x] No chest pain noted per patient [ ] Chest pain that resolved prior to leaving stress lab. [ ] No dyspnea noted. [x ] Dyspnea that resolved prior to leaving stress lab. [ x] Patient left stress lab asymptomatic and hemodynamically stable. [ ] Patient taken to the Emergency Room due to non-resolving symptoms following stress test. [ x] Patient achieved target heart rate. [ ] Patient unable to achieve target heart rate. [ ] Aminophylline administered as reversal agent to Lexiscan (Regadenoson). [ ] Nitro administered. Nursing Comments:
--- NOTE | 2024-07-09 17:11 | P.STRESS_ITS ---
Stress Test Stress Test Allergies Allergy/AdvReac Type Severity Reaction Status Date / Time No Known Drug Allergies Allergy Verified 05/05/24 09:22 Requesting physician: Mark Spaulding Procedure: Exercise Cardiolite stress test General Information: Reason for Stress Test: Chest pain, dyspnea, palpitations Cardiac History and Risk Factors: Former smoker, currently vapes Resting 12 - Lead Electrocardiogram: Rate & rhythm: Normal sinus at a rate of 65. [place]: Normal T-waves: Normal ST-segments: Normal Stress Test: Protocol: Cam protocol was followed, with injection of Cardiolite once target heart rate was achieved. Exercise capacity: Excellent exercise capacity. Total exercise time of 10 minutes 23 seconds reached Cam stage 4 at 4.2 MPH, 16% grade, & 13.4 METs. Blood pressure: Initial: 118/86, Maximum: 158/86 Rate & rhythm: Patient remained in sinus rhythm during the exercise and recovery portions of the study.? The maximum heart rate was 166, which was 86% of the maximum predicted heart rate. ST-segments & T-waves: No significant changes when compared to the baseline EKG. Patient response/symptoms: Mild dyspnea, but no reproducible chest pain. Interpretation: Normal exercise stress test without electrocardiographical evidence of ischemia. Asymptomatic of chest pain. Cardiolite imaging interpretation will be reported separately. Clinical correlation required.?
== END 2024-07-09 06:51 | disposition home or self-care (01) ==
LOC: NM 06:51
PROVIDERS: PCP Family Medicine; Visit Provider Family Medicine
DX: R07.9 Chest pain, unspecified (principal)
CPT/HCPCS: 78452; 93017; A9500

== ENCOUNTER 2025-07-18 21:03 | Emergency (ER) | payer BC, SELFPAY ==
--- OUTSIDE RECORDS SUMMARY | 2014-04-03 11:04 | XMS_ITS | Continuity of Care Document ---
Author Organization [facility] Address [address] [place] [address] Phone Care Team Providers Care Civil Preparedness Officer Name Role Phone Apoorva Ethan Unavailable Unavailable Allergies, Adverse Reactions, Alerts Substance Reaction Status Criticality No Known allergies Procedures Procedure Date PREV VISIT, NEW, AGE 18-39 ROUTINE VENIPUNCTURE HIV-1 Advance Directives Directive Yes / No Effective Date File Name Resuscitation Not Answered N/A N/A Life Support Not Answered N/A N/A Intubation Not Answered N/A N/A Antibiotics Not Answered N/A N/A IV Fluid Support Not Answered N/A N/A Tube Feed Not Answered N/A N/A Other Directive N/A N/A WARNING:The information contained in this section is historical and is provided for information only and does not constitute a legal document or any assurance that the information is still accurate. Please verify the information with the carlin of the legal document before using it for clinical purposes. Encounters Encounter Description Practice Location Reason(s) For Visit Diagnoses Date Provider Providers Copied on Encounter [facility], [address] [place] [address], [id number], [place] tel:[phone] [facility] No Information Apoorva Long. [address], [place], [id number], [place]. tel:[phone] PREV VISIT, NEW, AGE 18-39 [facility], [address], [place], [id number], [place] tel:[phone] [facility] STI male (chief complaint) Screening examination for venereal disease Apoorva Long. [address], [place], [id number], [place]. tel:[phone] Family History Family Member Type Diagnosis Age At Onset No Information Payers Payer name Insurance type Covered constitution party ID Authoriza tion(s) No Information Social History Type Description Quantity Date Captured Comments Alcohol Use Details Unknown Caffeine Use Details Unknown Tobacco Use Status No Information Smoking Status No Information Sex Male Sexual Orientation Straight or heterosexual Gender Identity Male Chief Complaint And Reason For Visit No Information Reason For Referral Reason For Referral No Information Plan Of Treatment Date Type Action Status Goal H&P. Due on due Goal TD Vaccine. Due on 14 due History Of Present Illness Encounter Date Complaint History Of Prese nt Illness No Information Functional Status Date Functional Assessmen t No Information Instructions Date Instruction Additional Infor mation Avoid sexual activit y while you await your test results. Related to Screening examination for venereal disease No treatment indicat ed today. Call for test results. Related to Screening examination for venereal disease Assessments Type Assessment Date No Information Patient Care Teams Name Effective Dates (start - stop) Status Members No Information
--- OUTSIDE RECORDS SUMMARY | 2024-06-09 05:10 | XMS_ITS ---
Author Organization [facility] Address [address] [place] [address] Care Team Providers Care Home Insurance Agent Name Role Phone Mark Spaulding Primary Care Provider Hussein Tavares [facility] [phone] REASON FOR VISIT S/P LEFT INDEX FINGER MASS EXCISION Encounters Encounter Location Date Provider Diagnosis [facility] [address] [place] [address] [place] [address] 06/09/2024 Hussein Curiel Plan Of Treatment No Information Progress Notes * RON WATSON ADOB:1994 (30 yo M)Acc No.[id number]:06/09/2024 Progress Notes Patient: Jackie RON FRIAS Provider: Felecia Curiel MD :1995 A ge:29 Y S ex:Male Date:06/09/2024 Address:[address] [place], [place] [id number] Pcp:Mark Spaulding Subjective: * Chief Complaints: * 1 . S/P LEFT INDEX FINGER MASS EXCISION. * Medical History: Objective: * Vitals: Assessment: Plan: * Treatment: Forms: * Images: * Electronic signature of Jeremias Curiel MD on 07/18/2025 at 09:18 PM EDT Sign off status: Pending * Provider: Felecia Curiel MD Date: 0 06/09/2024 Generated for Zina jean/Hannah/eTransmitting on: 1 09:18 PM EDT
--- OUTSIDE RECORDS SUMMARY | 2024-11-14 11:30 | XMS_ITS ---
Author Organization [facility] [place] Address [address] [place] [address] Care Team Providers Care Medical Technologist Chief Name Role Phone Jordy Spaulding Primary Care Provider REASON FOR VISIT chest issue Encounters Encounter Location Date Provider Diagnosis [facility] [address] [place] [address] 11/14/2024 Jordy Spaulding Plan Of Treatment No Information Progress Notes * Venu HARDENDOB:1995 (30 yo M)Acc No.[id number]:11/14/2024 UNLOCKED PROGRESS NOTE Progress Note Patient: Venu GAUTAM Provider: Raad Spaulding MD (TTC) :1995 A ge:29 Y S ex:Male Date:11/14/2024 Address:[address] [place], [place] [id number] Subjective: * Chief Complaints: * 1 . Chest issue. * Medical History: Objective: * Vitals: Assessment: Plan: * Treatment: * * Electronic signature of Jordy Spaulding MD, [id number] on 07/18/2025 at 09:18 PM EDT Sign off status: Pending Visit Status: C ANC (Cancelled) * Provider: Raad Spaulding MD (TTC) Date: 0 11/14/2024 Generated for Printi ng/Faxing/eTransmitting on: 1 09:18 PM EDT
[2025-07-18 21:10] VITALS: BP 126/74; PULSE 98; TEMP 36.9; O2SAT 93; BMI 29.5
--- OUTSIDE RECORDS SUMMARY | 2025-07-18 21:18 | XMS_ITS | CCD ---
Author Organization [facility] Care Team Providers Care Lie Detector Operator Name Role Phone PAY, DR HOLT Admitting Unavailable MISC, DR KILGORE Primary Care Unavailable PAY, DR HOLT Attending Unavailable PAY, DR HOLT Consulting Unavailable MISC, DR KILGORE Primary Care Unavailable MARKER, DR DICKENS Attending Unavailable MARKER, DR DICKENS Consulting Unavailable MARKER, DR DICKENS Admitting Unavailable MD Mark Spaulding Primary Care Provider DAVID Kelly Emergency Provider [phone] DO Juan Patterson Emergency Provider Hussein Curiel Attending Provider [phone] Mark Spaulding Primary Care Unavailable Jared Kelly Admitting Unavailable Jared Kelly Attending Unavailable Juan Patterson Admitting Unavailable Juan Patterson Attending Unavailable Mark Spaulding Primary Care Unavailable Hussein Curiel Admitting Unavailable Hussein Curiel [...] Date Documented Da te Episodic/Chronic Esophageal disorders (3 sources) Gastric reflux; Translations: [Gastro-esophageal reflux disease without esophagitis] 02-20-2024 Chronic Other upper respiratory infections (1 source) Acute [...] unspecified; Translations: [DERMATITIS UNSPECIFIED] Onset: 05-13-2021 Episodic Cardiac dysrhythmias (1 source) Palpitations; Translations: [Palpitations] Onset: 03-26-2024 Episodic Noninfectious gastroenteritis (1 source) Noninfective gastroenteritis and colitis, unspecified; Translations: [NONINFECTIVE GE AND COLITIS UNS] Onset: 05-13-2021 Episodic Nonspecific chest pain (6 sources) Atypical chest pain; Translations: [Other chest pain] Onset: 02-20-2024 02-20-2024 Episodic Other skin disorders (4 sources) Rash and other nonspecific skin eruption; Translations: [RASH OTH NONSPECIFIC SKIN ERUPTION] Onset: 05-11-2021 Episodic Unclassified (1 source) COUGH, UNSPECIFIED; Translations: [COUGH, UNSPECIFIED] Onset: 10-03-2021 Results Test Name Value Interpretation Reference Range Facility [facility] 05-12-2024 L Specimen: [id number] Received: 05/13/24 Status: GAVIN Bahena Num: [id number] Spec Type: Surgical Subm Dr: Hussein Curiel Tissues: A Soft Tissue/Surgical Margin-Other than Tumor,Mass,Lip or Heidi (LT INDEX FINGE Procedures: HE, Gross/Micro L4 Age/ Patient Sex Location Account Attending Physician Dustin Harden 29/M LABELL [id number] Hussein Curiel SPEC NUM: [id number] RECD: 05/13/24 STATUS: GAVIN BAHENA NUM: [id number] ONESIMO: 05/12/[address]: Hussein Curiel ENTERED: 05/13/[address]: Sarah,Lab SPEC TYPE: Surgical DEPT: YOANDY LEAL ORDERED: HE, Gross/Micro L4 ORDERED: HE, Gross/Micro L4 Pathological Diagnosis Mass, left index finger, 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 Clinical Information Left finger mass excision Gross Description Received in formalin labeled with the patient's name, date of and left index finger mass is a firm and lobulated jacobo-yellow portion of soft tissue measuring 2.1 x 1.8 x 1.3 cm. The specimen is inked green and serially section revealing a jacobo-yellow fibrous cut surface. Telecommunications Facility Examiner sections are submitted in A1. CPT Codes 02785 Specimen: [id number] Received: 05/13/24 Status: GAVIN Bahena Num: [id number] Spec Type: Surgical Subm Dr: Hussein Curiel Tissues: A Soft Tissue/Surgical Margin-Other than Tumor,Mass,Lip or Heidi (LT INDEX FINGE Procedures: HE, Gross/Micro L4 Patient: Dustin Harden [id number] (Continued) Signed (signature on file) Martinez Ness MD 05/15/24 2605 Normal [facility] Activated partial thrombopla stin time (aPTT) in platelet poor plasma by coagulation aOrdered By: Juan Patterson on 03-26-2024 aPTT Coag (PPP) [Time] 28.3 s 25.1-36.5 [facility] Comment on above: A hematocrit value g reater than 55% may lead to inaccurate results in coagulation testing. Patients having hematocrit values >55% require a special collection tube for coagulation studies. Please contact the laboratory at [phone] for redraw instructions. Alanine aminotransferase [En zymatic activity/volume] in Serum or PlasmaOrdered By: Juan Patterson on 03-26-2024 ALT [Catalytic activity/Vol] 24 U/L Normal 7-52 [facility] Comment on above: Performed By: #### M G, HS TROP, CK, CMP, PT, CBC, PTT ####[address] Albumin [Mass/volume] in Ser um or Plasma by Bromocresol green (BCG) dye binding methoOrdered By: Juan Patterson on 03-26-2024 Albumin BCG dye [Mass/Vol] 4.8 g/dL 3.5-5.7 [facility] Alkaline phosphatase [Enzyma tic activity/volume] in Serum or PlasmaOrdered By: Juan Patterson on 03-26-2024 ALP [Catalytic activity/Vol] 80 U/L Normal 34-104 [facility] Comment on above: Performed By: #### M G, HS TROP, CK, CMP, PT, CBC, PTT ####[address] Aspartate aminotransferase [ Enzymatic activity/volume] in Serum or PlasmaOrdered By: Juan Patterson on 03-26-2024 AST [Catalytic activity/Vol] 23 U/L Normal 13-39 [facility] Comment on above: Performed By: #### M G, HS TROP, CK, CMP, PT, CBC, PTT ####[address] Automated basophil %Ordered By: Juan Patterson on 03-26-2024 Basophils/100 WBC (Bld) 0.6 % Normal . [facility] Comment on above: Performed By: #### M G, HS TROP, CK, CMP, PT, CBC, PTT ####[address] Automated basophil countOrde red By: Juan Patterson on 03-26-2024 Basophils (Bld) [#/Vol] 0.0 10*3/uL Normal 0.0-0.2 [facility] Comment on above: Result Comment: PERF ORMED BY: [facility] [address] [place] [address] PATHOLOGIST SUPERVISOR [employer] NINA KEATING M.D. Performed By: #### M G, HS TROP, CK, CMP, PT, CBC, PTT ####[address] Automated blood monocyte cou ntOrdered By: Juan Patterson on 03-26-2024 Monocytes (Bld) [#/Vol] 0.6 10*3/uL Normal 0.0-0.8 [facility] Comment on above: Performed By: #### M G, HS TROP, CK, CMP, PT, CBC, PTT ####[address] Automated eosinophil %Ordere d By: Juan Patterson on 03-26-2024 Eosinophils/100 WBC (Bld) 1.9 % Normal . [facility] Comment on above: Performed By: #### M G, HS TROP, CK, CMP, PT, CBC, PTT ####[address] Automated eosinophil countOr dered By: Juan Patterson on 03-26-2024 Eosinophils (Bld) [#/Vol] 0.1 10*3/uL Normal 0.0-0.45 [facility] Comment on above: Performed By: #### M G, HS TROP, CK, CMP, PT, CBC, PTT ####[address] Automated monocyte %Ordered By: Juan Patterson on 03-26-2024 Monocytes/100 WBC (Bld) 8.9 % Normal . [facility] Comment on above: Performed By: #### M G, HS TROP, CK, CMP, PT, CBC, PTT ####[address] Automated neutrophil %Ordere d By: Juan Patterson on 03-26-2024 Neutrophils/100 WBC (Bld) 65.5 % Normal . [facility] Comment on above: Performed By: #### M G, HS TROP, CK, CMP, PT, CBC, PTT ####[place] [address] [facility] Bilirubin.total [Mass/volume ] in Serum or PlasmaOrdered By: Juan Patterson on 03-26-2024 Bilirubin [Mass/Vol] 0.8 mg/dL Normal 0.3-1.[address] [facility] Comment on above: Performed By: #### M G, HS TROP, CK, CMP, PT, CBC, PTT ####[place] [address] [facility] Calcium [Mass/volume] in Ser um or PlasmaOrdered By: Juan Patterson on 03-26-2024 Calcium [Mass/Vol] 10.1 mg/dL Normal 8.6-10.3 [facility] Comment on above: Performed By: #### M G, HS TROP, CK, CMP, PT, CBC, PTT ####[place] [address] [facility] Carbon dioxide, total [Moles /volume] in Serum or PlasmaOrdered By: Juan Patterson on 03-26-2024 CO2 [Moles/Vol] 24.0 mmol/L Normal 21.0-31.0 [facility] Comment on above: Performed By: #### M G, HS TROP, CK, CMP, PT, CBC, PTT ####[place] [address] [facility] Chloride [Moles/volume] in S germaine or PlasmaOrdered By: Juan Patterson on 03-26-2024 Chloride [Moles/Vol] 104 mmol/L Normal 98-[address] [facility] Comment on above: Performed By: #### M G, HS TROP, CK, CMP, PT, CBC, PTT ####[place] [address] [facility] Complete Blood Count Auto Di ffon 03-26-2024 Mean Corpuscular HGB Conc 34.8 g/dL Normal 32.5-35.6 [facility] Comment on above: Performed By: #### M G, HS TROP, CK, CMP, PT, CBC, PTT ####[address] [address] [place] Monocytes/100 WBC (Bld) 16.49 % Normal 0.00-20.00 [facility] Comment on above: Performed By: #### M G, HS TROP, CK, CMP, PT, CBC, PTT ####[address] NRBC% 0.2 /100{WBC} Normal 0-0.5 [facility] Comment on above: Performed By: #### M G, HS TROP, CK, CMP, PT, CBC, PTT ####[address] Comprehensive Metabolic Pane annette 03-26-2024 Albumin [Mass/Vol] 4.8 g/dL Normal 3.5-5.7 [facility] Comment on above: Performed By: #### M G, HS TROP, CK, CMP, PT, CBC, PTT ####[address] Creatinine Clr Calc Pharmacy 158.77 Normal [facility] Comment on above: Performed By: #### M G, HS TROP, CK, CMP, PT, CBC, PTT ####[address] GFR/1.73 sq M.predicted MDRD (S/P/Bld) [Vol rate/Area] mL/min/{1.73_m2} Normal [facility] Comment on above: Performed By: #### M G, HS TROP, CK, CMP, PT, CBC, PTT ####[address] Creatine kinase [Enzymatic a ctivity/volume] in Serum or PlasmaOrdered By: Juan Patterson on 03-26-2024 CK [Catalytic activity/Vol] 122 U/L Normal 30-223 [facility] Comment on above: Performed By: #### M G, HS TROP, CK, CMP, PT, CBC, PTT ####[place] [address] [facility] Creatinine [Mass/volume] in Serum or PlasmaOrdered By: Juan Patterson on 03-26-2024 Creatinine [Mass/Vol] 0.77 mg/dL Normal 0.70-1.30 [facility] Comment on above: Performed By: #### M G, HS TROP, CK, CMP, PT, CBC, PTT ####[facility] [address] [place] [address] [facility] ECG 12 lead ECGon 03-26-2024 ECG 12 lead ECG [facility] [address] [place] [address] Electrocardiograph Report Signed Patient: Dustin Harden MR#: [id number] : 1995 Acct:[id number] Age/Sex: 29 / M ADM Date: 03/26/24 Loc: ER Room: Type: [facility] ER Attending Dr: Ordering Provider: Juan Patetrson DO Date of Service: 03/26/2410/07/811 ECG/ECG 12 [...] By Juan Patterson DO 1437 Normal [facility] Erythrocyte distribution wid th [Ratio] by Automated countOrdered By: Juan Patterson on 03-26-2024 Erythrocyte distribution width (RBC) [Ratio] 13.4 % Normal 12.0-14.8 [facility] Comment on above: Performed By: #### M G, HS TROP, CK, CMP, PT, CBC, PTT ####[facility] [place] [id number] [facility] Erythrocytes [#/volume] in B lood by Automated countOrdered By: Juan Patterson on 03-26-2024 RBC (Bld) [#/Vol] 5.28 10*6/uL Normal 3.90-5.60 [facility] Comment on above: Performed By: #### M G, HS TROP, CK, CMP, PT, CBC, PTT ####[place] [address] [facility] Glucose [Mass/volume] in Ser um or PlasmaOrdered By: Juan Patterson on 03-26-2024 Glucose [Mass/Vol] 98 mg/dL Normal 70-100 [facility] Comment on above: ADA recommended refe rence rangeRandom Glucose Reference Range is dependent on time and content of last meal. Glucose of more than 200 mg/dL in a nonstressed, ambulatory subject supports the diagnosis of Diabetes Mellitus. Result Comment: [place] om Glucose Reference Range is dependent on time and content of last meal. Glucose of more than 200 mg/dL in a nonstressed, ambulatory subject supports the diagnosis of Diabetes Mellitus. ADA recommended reference range Performed By: #### M G, HS TROP, CK, CMP, PT, CBC, PTT ####[place] [address] [facility] Hematocrit [Volume Fraction] of Blood by Automated countOrdered By: Juan Patterson on 03-26-2024 Hematocrit (Bld) [Volume fraction] 46.2 % Normal 38.8-50.0 [facility] Comment on above: Performed By: #### M G, HS TROP, CK, CMP, PT, CBC, PTT ####[address] [address] [facility] Hemoglobin [Mass/volume] in BloodOrdered By: Juan Patterson on 03-26-2024 Hemoglobin (Bld) [Mass/Vol] 16.1 g/dL Normal 13.0-17.0 [facility] Comment on above: Performed By: #### M G, HS TROP, CK, CMP, PT, CBC, PTT ####[address] [address] [facility] INR in Platelet poor plasma by Coagulation assayOrdered By: Juan Patterson on 03-26-2024 INR Coag (PPP) [Relative time] 1.0 {INR} Normal [facility] Comment on above: INR Therapeutic Rang [...] HS TROP, CK, CMP, PT, CBC, PTT ####[facility] [id number] Leukocytes [#/volume] correc modesta for nucleated erythrocytes in Blood by Automated counOrdered By: Juan Patterson on 03-26-2024 WBC corrected for nucl RBC Auto (Bld) [#/Vol] 6.2 10*3/uL 4.1-10.5 [facility] Leukocytes [#/volume] in Blo od by Automated countOrdered By: Juan Patterson on 03-26-2024 WBC (Bld) [#/Vol] 6.2 10*3/uL Normal 4.1-10.5 [facility] Comment on above: Performed By: #### M G, HS TROP, CK, CMP, PT, CBC, PTT ####[facility] [place] [id number] [facility] Lymphocytes [#/volume] in Bl ood by Automated countOrdered By: Juan Patterson on 03-26-2024 Lymphocytes (Bld) [#/Vol] 1.4 10*3/uL Normal 1.00-4.8 [facility] Comment on above: Performed By: #### M G, HS TROP, CK, CMP, PT, CBC, PTT ####[address] Lymphocytes/100 leukocytes i n Blood by Automated countOrdered By: Juan Patterson on 03-26-2024 Lymphocytes/100 WBC (Bld) 23.1 % Normal . [facility] Comment on above: Performed By: #### M G, HS TROP, CK, CMP, PT, CBC, PTT ####[address] MCH [Entitic mass] by Automa modesta countOrdered By: Juan Patterson on 03-26-2024 MCH (RBC) [Entitic mass] 30.5 pg Normal 27.5-35.2 [facility] Comment on above: Performed By: #### M G, HS TROP, CK, CMP, PT, CBC, PTT ####[address] MCHC Auto (RBC) [Mass/Vol]Or dered By: Juan Patterson on 03-26-2024 MCHC (RBC) [Mass/Vol] 34.8 g/dL 32.5-35.6 [facility] MCV [Entitic volume] by Auto mated countOrdered By: Juan Patterson on 03-26-2024 MCV (RBC) [Entitic vol] 87.6 fL Normal 83.5-101 [facility] Comment on above: Performed By: #### M G, HS TROP, CK, CMP, PT, CBC, PTT ####[address] Magnesium [Mass/volume] in S germaine or PlasmaOrdered By: Juan Patterson on 03-26-2024 Magnesium [Mass/Vol] 1.8 mg/dL Low 1.9-2.[address] [facility] Comment on above: Result Comment: PERF ORMED BY: [facility] [address] [place] [address] PATHOLOGIST SUPERVISOR [employer] NINA KEATING M.D. Performed By: #### M G, HS TROP, CK, CMP, PT, CBC, PTT ####[address] Monocyte distribution width [Entitic volume] in Blood by AutomatedOrdered By: Juan Patterson on 03-26-2024 Monocyte distribution width Auto (Bld) [Entitic vol] 16.49 % 0.00-20.00 [facility] Neutrophils [#/volume] in Bl ood by Automated countOrdered By: Juan Patterson on 03-26-2024 Neutrophils (Bld) [#/Vol] 4.1 10*3/uL Normal 1.8-7.7 [facility] Comment on above: Performed By: #### M G, HS TROP, CK, CMP, PT, CBC, PTT ####[facility] [address] [place] [id number] [facility] No Panel InformationOrdered By: Juan Patterson on 03-26-2024 Estimated GFR (CKD-EPI) > 60.0 mL/Min [facility] Creatinine Clearance (Chem 158.77 [facility] Nucleated erythrocytes [Pres ence] in Blood by Automated countOrdered By: Juan Patterson on 03-26-2024 Nucleated RBC Auto Ql (Bld) 0.2 /100{WBC} 0-0.5 [facility] Partial Thromboplastin Timeo n 03-26-2024 aPTT Coag (Bld) [Time] 28.3 s Normal 25.1-36.5 [facility] Comment on above: Result Comment: A he matocrit value greater than 55% may lead to inaccurate results in coagulation testing. Patients having hematocrit values >55% require a special collection tube for coagulation studies. Please contact the laboratory at [phone] for redraw instructions. PERFORMED BY: [facility] [address] [place] [id number] PATHOLOGIST SUPERVISOR [employer] NINA KEATING M.D. Performed By: #### M G, HS TROP, CK, CMP, PT, CBC, PTT ####[facility] [address] [place] [id number] [facility] Platelet mean volume [Entiti c volume] in Blood by Automated countOrdered By: Juan Patterson on 03-26-2024 Platelet mean volume (Bld) [Entitic vol] 9.2 fL Normal 6.6-10.1 [facility] Comment on above: Performed By: #### M G, HS TROP, CK, CMP, PT, CBC, PTT ####[place] [address] [place] [address] [facility] Platelets [#/volume] in Bloo d by Automated countOrdered By: Juan Patterson on 03-26-2024 Platelets (Bld) [#/Vol] 210 10*3/uL Normal 150-450 [facility] Comment on above: Performed By: #### M G, HS TROP, CK, CMP, PT, CBC, PTT ####[place] [address] [place] [address] [facility] Potassium [Moles/volume] in Serum or PlasmaOrdered By: Juan Patterson on 03-26-2024 Potassium [Moles/Vol] 3.9 mmol/L Normal 3.5-5.1 [facility] Comment on above: Performed By: #### M G, HS TROP, CK, CMP, PT, CBC, PTT ####[place] [address] [place] [address] [facility] Protein [Mass/volume] in Ser um or PlasmaOrdered By: Juan Patterson on 03-26-2024 Protein [Mass/Vol] 8.0 g/dL Normal 6.4-8.9 [facility] Comment on above: Performed By: #### M G, HS TROP, CK, CMP, PT, CBC, PTT ####[address] [address] [facility] Prothrombin time (PT)Ordered By: Juan Patterson on 03-26-2024 PT Coag (PPP) [Time] 11.1 s Normal 9.0-12.[address] [facility] Comment on above: A hematocrit value g reater than 55% may lead to inaccurate results in coagulation testing. Patients having hematocrit values >55% require a special collection tube for coagulation studies. Please contact the laboratory at [phone] for redraw instructions. Result Comment: A he matocrit value greater than 55% may lead to inaccurate results in coagulation testing. Patients having hematocrit values >55% require a special collection tube for coagulation studies. Please contact the laboratory at [phone] for redraw instructions. Performed By: #### M G, HS TROP, CK, CMP, PT, CBC, PTT ####[place] [address] Serum globulin measurement b y calculation (mass/volume)Ordered By: Juan Patterson on 03-26-2024 Globulin (S) [Mass/Vol] 3.2 g/dL [facility] Comment on above: Performed By: #### M G, HS TROP, CK, CMP, PT, CBC, PTT ####[place] [address] [place] [id number] [facility] Serum or plasma albumin/glob ulin mass ratioOrdered By: Juan Patterson on 03-26-2024 Albumin/Globulin [Mass ratio] 1.5 {ratio} [facility] Comment on above: Performed By: #### M G, HS TROP, CK, CMP, PT, CBC, PTT ####[address] Serum or plasma anion gap de terminationOrdered By: Juan Patterson on 03-26-2024 Anion gap [Moles/Vol] 13.9 mmol/L Normal 6.0-15.0 [facility] Comment on above: Performed By: #### M G, HS TROP, CK, CMP, PT, CBC, PTT ####[place] [address] [facility] Sodium [Moles/volume] in Ser um or PlasmaOrdered By: Juan Patterson on 03-26-2024 Sodium [Moles/Vol] 138 mmol/L Normal 136-145 [facility] Comment on above: Performed By: #### M G, HS TROP, CK, CMP, PT, CBC, PTT ####[place] [address] [facility] Troponin I High Sensitivityo n 03-26-2024 Troponin I High Sensitivity < 2.3 Normal 0.0-20.0 [facility] Comment on above: Result Comment: PERF ORMED BY: [facility] [address] [place] [id number] PATHOLOGIST SUPERVISOR [employer] NINA KEATING M.D. Performed By: #### M G, HS TROP, CK, CMP, PT, CBC, PTT ####[facility] [id number] [place] [id number] [facility] Troponin I.cardiac [Mass/vol ume] in Serum or Plasma by Detection limit <= 0.01 ng/Ordered By: Juan Patterson on 03-26-2024 Troponin I.cardiac DL <= 0.01 ng/mL [Mass/Vol] < 2.3 pg/mL 0.0-20.0 [facility] Urea nitrogen [Mass/volume] in Serum or PlasmaOrdered By: Juan Patterson on 03-26-2024 Urea nitrogen [Mass/Vol] 15 mg/dL Normal 7-25 [facility] Comment on above: Performed By: #### M G, HS TROP, CK, CMP, PT, CBC, PTT ####[place] [address] [place] [id number] [facility] XR chest 1V portableon 03-26 XR chest 1V portable [facility] [address] [place] [address] XRay Report Signed Patient: Dustin Harden MR#: [id number] : 1995 Acct:[id number] Age/Sex: 29 / M ADM Date: 03/26/24 Loc: ER Room: Type: [facility] ER Attending Dr: Copies to: Juan [...] Urban Jr., D.O.03/26/2024 8:53 AM Dictation Location: [place] [address] Transcribed By: [facility] 03/26/24 0853 Dictated By: Gallo Urban Jr, DO 03/26/24 0847 Signed By: 03/26/24 0853 Normal [facility] Activated partial thrombopla stin time (aPTT) in platelet poor plasma by coagulation aOrdered By: Manuel Mccartney on 02-20-2024 aPTT Coag (PPP) [Time] 30.0 s 25.1-36.5 [facility] Comment on above: A hematocrit value g reater than 55% may lead to inaccurate results in coagulation testing. Patients having hematocrit values >55% require a special collection tube for coagulation studies. Please contact the laboratory at [phone] for redraw instructions. Alanine aminotransferase [En zymatic activity/volume] in Serum or PlasmaOrdered By: Manuel Mccartney on 02-20-2024 ALT [Catalytic activity/Vol] 36 U/L Normal 7-52 [facility] Comment on above: Performed By: #### L IPASE, TSH3, BMP, PTT, CBC, HS TROP, BNP, CK, HEPATIC, PT ####[facility] Albumin [Mass/volume] in Ser um or Plasma by Bromocresol green (BCG) dye binding methoOrdered By: Manuel Mccartney on 02-20-2024 Albumin BCG dye [Mass/Vol] 5.0 g/dL 3.5-5.7 [facility] Alkaline phosphatase [Enzyma tic activity/volume] in Serum or PlasmaOrdered By: Manuel Mccartney on 02-20-2024 ALP [Catalytic activity/Vol] 76 U/L Normal 34-104 [facility] Comment on above: Performed By: #### L IPASE, TSH3, BMP, PTT, CBC, HS TROP, BNP, CK, HEPATIC, PT ####[place] [address] [place] [id number] [facility] Aspartate aminotransferase [ Enzymatic activity/volume] in Serum or PlasmaOrdered By: Manuel Mccartney on 02-20-2024 AST [Catalytic activity/Vol] 26 U/L Normal 13-39 [facility] Comment on above: Performed By: #### L IPASE, TSH3, BMP, PTT, CBC, HS TROP, BNP, CK, HEPATIC, PT ####[facility] Automated basophil %Ordered By: Manuel Mccartney on 02-20-2024 Basophils/100 WBC (Bld) 0.5 % Normal . [facility] Comment on above: Performed By: #### L IPASE, TSH3, BMP, PTT, CBC, HS TROP, BNP, CK, HEPATIC, PT #### [address] Automated basophil countOrde red By: Manuel Mccartney on 02-20-2024 Basophils (Bld) [#/Vol] 0.1 10*3/uL Normal 0.0-0.2 [facility] Comment on above: Result Comment: PERF ORMED BY: [place] [address] PATHOLOGIST SUPERVISOR [employer] NINA KEATING M.D. Performed By: #### L IPASE, TSH3, BMP, PTT, CBC, HS TROP, BNP, CK, HEPATIC, PT #### [address] Automated blood monocyte cou ntOrdered By: Manuel Mccartney on 02-20-2024 Monocytes (Bld) [#/Vol] 0.8 10*3/uL Normal 0.0-0.8 [facility] Comment on above: Performed By: #### L IPASE, TSH3, BMP, PTT, CBC, HS TROP, BNP, CK, HEPATIC, PT #### [address] Automated eosinophil %Ordere d By: Manuel Mccartney on 02-20-2024 Eosinophils/100 WBC (Bld) 0.6 % Normal . [facility] Comment on above: Performed By: #### L IPASE, TSH3, BMP, PTT, CBC, HS TROP, BNP, CK, HEPATIC, PT #### [address] Automated eosinophil countOr dered By: Manuel Mccartney on 02-20-2024 Eosinophils (Bld) [#/Vol] 0.1 10*3/uL Normal 0.0-0.45 [facility] Comment on above: Performed By: #### L IPASE, TSH3, BMP, PTT, CBC, HS TROP, BNP, CK, HEPATIC, PT #### [address] Automated monocyte %Ordered By: Manuel Mccartney on 02-20-2024 Monocytes/100 WBC (Bld) 7.3 % Normal . [facility] Comment on above: Performed By: #### L IPASE, TSH3, BMP, PTT, CBC, HS TROP, BNP, CK, HEPATIC, PT #### [address] Automated neutrophil %Ordere d By: Manuel Mccartney on 02-20-2024 Neutrophils/100 WBC (Bld) 79.8 % Normal . [facility] Comment on above: Performed By: #### L IPASE, TSH3, BMP, PTT, CBC, HS TROP, BNP, CK, HEPATIC, PT #### [address] BNP ser/plasOrdered By: Manuel Mccartney on 02-20-2024 Natriuretic peptide B (Bld) [Mass/Vol] 7.0 pg/mL Normal 5-100 [facility] Comment on above: Result Comment: PERF ORMED BY: [place] [address] PATHOLOGIST SUPERVISOR [employer] NINA KEATING M.D. Performed By: #### L IPASE, TSH3, BMP, PTT, CBC, HS TROP, BNP, CK, HEPATIC, PT #### [address] Basic Metabolic Panelon 05-0 Creatinine Clr Calc Pharmacy 137.62 Normal [facility] Comment on above: Performed By: #### L IPASE, TSH3, BMP, PTT, CBC, HS TROP, BNP, CK, HEPATIC, PT #### [address] Performed By: #### L IPASE, TSH3, BMP, PTT, CBC, HS TROP, BNP, CK, HEPATIC, PT ####[facility] GFR/1.73 sq M.predicted MDRD (S/P/Bld) [Vol rate/Area] mL/min/{1.73_m2} Normal [facility] Comment on above: Performed By: #### L IPASE, TSH3, BMP, PTT, CBC, HS TROP, BNP, CK, HEPATIC, PT #### [facility] [address] Performed By: #### L IPASE, TSH3, BMP, PTT, CBC, HS TROP, BNP, CK, HEPATIC, PT ####[facility] Oxs[address]51 [address] Bilirubin.direct [Mass/volum e] in Serum or PlasmaOrdered By: Manuel Mccartney on 02-20-2024 Bilirubin.direct [Mass/Vol] 0.10 mg/dL 0.03-0.18 [facility] Bilirubin.total [Mass/volume ] in Serum or PlasmaOrdered By: Manuel Mccartney on 02-20-2024 Bilirubin [Mass/Vol] 0.6 mg/dL Normal 0.3-1.[address] [facility] Comment on above: Performed By: #### L IPASE, TSH3, BMP, PTT, CBC, HS TROP, BNP, CK, HEPATIC, PT ####[place] [address] [address] Calcium [Mass/volume] in Ser um or PlasmaOrdered By: Manuel Mccartney on 02-20-2024 Calcium [Mass/Vol] 10.1 mg/dL Normal 8.6-10.3 [facility] Comment on above: Performed By: #### L IPASE, TSH3, BMP, PTT, CBC, HS TROP, BNP, CK, HEPATIC, PT #### [facility] [address] Performed By: #### L IPASE, TSH3, BMP, PTT, CBC, HS TROP, BNP, CK, HEPATIC, PT ####[place] [address] [address] Carbon dioxide, total [Moles /volume] in Serum or PlasmaOrdered By: Manuel Mccartney on 02-20-2024 CO2 [Moles/Vol] 25.5 mmol/L Normal 21.0-31.0 [facility] Comment on above: Performed By: #### L IPASE, TSH3, BMP, PTT, CBC, HS TROP, BNP, CK, HEPATIC, PT #### [address] Performed By: #### L IPASE, TSH3, BMP, PTT, CBC, HS TROP, BNP, CK, HEPATIC, PT ####[address] Chloride [Moles/volume] in S germaine or PlasmaOrdered By: Manuel Mccartney on 02-20-2024 Chloride [Moles/Vol] 105 mmol/L Normal 98-[address] [facility] Comment on above: Performed By: #### L IPASE, TSH3, BMP, PTT, CBC, HS TROP, BNP, CK, HEPATIC, PT #### [address] Performed By: #### L IPASE, TSH3, BMP, PTT, CBC, HS TROP, BNP, CK, HEPATIC, PT ####[address] Complete Blood Count Auto Di ffon 02-20-2024 Mean Corpuscular HGB Conc 34.4 g/dL Normal 32.5-35.6 [facility] Comment on above: Performed By: #### L IPASE, TSH3, BMP, PTT, CBC, HS TROP, BNP, CK, HEPATIC, PT #### [address] Monocytes/100 WBC (Bld) 16.28 % Normal 0.00-20.00 [facility] Comment on above: Performed By: #### L IPASE, TSH3, BMP, PTT, CBC, HS TROP, BNP, CK, HEPATIC, PT #### [address] NRBC% 0.1 /100{WBC} Normal 0-0.5 [facility] Comment on above: Performed By: #### L IPASE, TSH3, BMP, PTT, CBC, HS TROP, BNP, CK, HEPATIC, PT #### [facility] [address] Creatine kinase [Enzymatic a ctivity/volume] in Serum or PlasmaOrdered By: Manuel Mccartney on 02-20-2024 CK [Catalytic activity/Vol] 100 U/L Normal 30-223 [facility] Comment on above: Performed By: #### L IPASE, TSH3, BMP, PTT, CBC, HS TROP, BNP, CK, HEPATIC, PT #### [facility] [address] Creatinine [Mass/volume] in Serum or PlasmaOrdered By: Manuel Mccartney on 02-20-2024 Creatinine [Mass/Vol] 0.90 mg/dL Normal 0.70-1.30 [facility] Comment on above: Performed By: #### L IPASE, TSH3, BMP, PTT, CBC, HS TROP, BNP, CK, HEPATIC, PT #### [facility] [address] Performed By: #### L IPASE, TSH3, BMP, PTT, CBC, HS TROP, BNP, CK, HEPATIC, PT ####[facility] [id number] [address] ECG 12 lead ECGon 02-20-2024 ECG 12 lead ECG [facility] [address] [place] [address] [place] [address] Electrocardiograph Report Signed Patient: Dustin Harden MR#: [id number] : 1995 Acct:[id number] Age/Sex: 29 / M ADM Date: 02/20/24 [...] ECGs available Confirmed by MANUEL MCCARTNEY DO ([id number]) on 02/20/2024 3:42:48 PM Referred By: Electronically Signed By:MANUEL MCCARTNEY DO Transcribed By: MUS Signed By Manuel Mccartney DO 02/19 1542 Normal [facility] Erythrocyte distribution wid th [Ratio] by Automated countOrdered By: Manuel Mccartney on 02-20-2024 Erythrocyte distribution width (RBC) [Ratio] 13.2 % Normal 12.0-14.8 [facility] Comment on above: Performed By: #### L IPASE, TSH3, BMP, PTT, CBC, HS TROP, BNP, CK, HEPATIC, PT #### [facility] [address] Erythrocytes [#/volume] in B lood by Automated countOrdered By: Manuel Mccartney on 02-20-2024 RBC (Bld) [#/Vol] 5.47 10*6/uL Normal 3.90-5.60 [facility] Comment on above: Performed By: #### L IPASE, TSH3, BMP, PTT, CBC, HS TROP, BNP, CK, HEPATIC, PT #### [facility] [address] Glucose [Mass/volume] in Ser um or PlasmaOrdered By: Manuel Mccartney on 02-20-2024 Glucose [Mass/Vol] 96 mg/dL Normal 70-100 [facility] Comment on above: ADA recommended refe rence rangeRandom Glucose Reference Range is dependent on time and content of last meal. Glucose of more than 200 mg/dL in a nonstressed, ambulatory subject supports the diagnosis of Diabetes Mellitus. Result Comment: [place] om Glucose Reference Range is dependent on time and content of last meal. Glucose of more than 200 mg/dL in a nonstressed, ambulatory subject supports the diagnosis of Diabetes Mellitus. ADA recommended reference range Performed By: #### L IPASE, TSH3, BMP, PTT, CBC, HS TROP, BNP, CK, HEPATIC, PT #### [facility] [address] Performed By: #### L IPASE, TSH3, BMP, PTT, CBC, HS TROP, BNP, CK, HEPATIC, PT ####[address] Hematocrit [Volume Fraction] of Blood by Automated countOrdered By: Manuel Mccartney on 02-20-2024 Hematocrit (Bld) [Volume fraction] 47.6 % Normal 38.8-50.0 [facility] Comment on above: Performed By: #### L IPASE, TSH3, BMP, PTT, CBC, HS TROP, BNP, CK, HEPATIC, PT #### [facility] [address] [place] [address] Hemoglobin [Mass/volume] in BloodOrdered By: Manuel Mccartney on 02-20-2024 Hemoglobin (Bld) [Mass/Vol] 16.4 g/dL Normal 13.0-17.0 [facility] Comment on above: Performed By: #### L IPASE, TSH3, BMP, PTT, CBC, HS TROP, BNP, CK, HEPATIC, PT #### [facility] [address] [place] [address] Hepatic Panelon 02-20-2024 Albumin [Mass/Vol] 5.0 g/dL Normal 3.5-5.7 [facility] Comment on above: Performed By: #### L IPASE, TSH3, BMP, PTT, CBC, HS TROP, BNP, CK, HEPATIC, PT ####[address] Bilirubin,Indirect 0.5 mg/dL Normal [facility] Comment on above: Performed By: #### L IPASE, TSH3, BMP, PTT, CBC, HS TROP, BNP, CK, HEPATIC, PT ####[address] Bilirubin.indirect [Mass/Vol] 0.10 mg/dL Normal 0.03-0.18 [facility] Comment on above: Performed By: #### L IPASE, TSH3, BMP, PTT, CBC, HS TROP, BNP, CK, HEPATIC, PT ####[address] [place] [address] [place] INR in Platelet poor plasma by Coagulation assayOrdered By: Manuel Mccartney on 02-20-2024 INR Coag (PPP) [Relative time] 0.9 {INR} Normal [facility] Comment on above: INR Therapeutic Rang [...] HS TROP, BNP, CK, HEPATIC, PT #### [facility] [address] [place] [address] [place] Leukocytes [#/volume] correc modesta for nucleated erythrocytes in Blood by Automated counOrdered By: Manuel Mccartney on 02-20-2024 WBC corrected for nucl RBC Auto (Bld) [#/Vol] 10.4 10*3/uL 4.1-10.5 [facility] Leukocytes [#/volume] in Blo od by Automated countOrdered By: Manuel Mccartney on 02-20-2024 WBC (Bld) [#/Vol] 10.4 10*3/uL Normal 4.1-10.5 [facility] Comment on above: Performed By: #### L IPASE, TSH3, BMP, PTT, CBC, HS TROP, BNP, CK, HEPATIC, PT #### [facility] [address] [place] [address] [place] Lipase [Enzymatic activity/v olume] in Serum or PlasmaOrdered By: Manuel Mccartney on 02-20-2024 Lipase [Catalytic activity/Vol] 6.0 U/L Low 11.0-82.0 [facility] Comment on above: Performed By: #### L IPASE, TSH3, BMP, PTT, CBC, HS TROP, BNP, CK, HEPATIC, PT ####[facility] [id number] [address] Lymphocytes [#/volume] in Bl ood by Automated countOrdered By: Manuel Mccartney on 02-20-2024 Lymphocytes (Bld) [#/Vol] 1.2 10*3/uL Normal 1.00-4.8 [facility] Comment on above: Performed By: #### L IPASE, TSH3, BMP, PTT, CBC, HS TROP, BNP, CK, HEPATIC, PT #### [facility] [address] Lymphocytes/100 leukocytes i n Blood by Automated countOrdered By: Manuel Mccartney on 02-20-2024 Lymphocytes/100 WBC (Bld) 11.8 % Normal . [facility] Comment on above: Performed By: #### L IPASE, TSH3, BMP, PTT, CBC, HS TROP, BNP, CK, HEPATIC, PT #### [facility] [address] MCH [Entitic mass] by Automa modesta countOrdered By: Manuel Mccartney on 02-20-2024 MCH (RBC) [Entitic mass] 29.9 pg Normal 27.5-35.2 [facility] Comment on above: Performed By: #### L IPASE, TSH3, BMP, PTT, CBC, HS TROP, BNP, CK, HEPATIC, PT #### [facility] [address] MCHC Auto (RBC) [Mass/Vol]Or dered By: Manuel Mccartney on 02-20-2024 MCHC (RBC) [Mass/Vol] 34.4 g/dL 32.5-35.6 [facility] MCV [Entitic volume] by Auto mated countOrdered By: Manuel Mccartney on 02-20-2024 MCV (RBC) [Entitic vol] 87.0 fL Normal 83.5-101 [facility] Comment on above: Performed By: #### L IPASE, TSH3, BMP, PTT, CBC, HS TROP, BNP, CK, HEPATIC, PT #### [address] Monocyte distribution width [Entitic volume] in Blood by AutomatedOrdered By: Manuel Mccartney on 02-20-2024 Monocyte distribution width Auto (Bld) [Entitic vol] 16.28 % 0.00-20.00 [facility] Neutrophils [#/volume] in Bl ood by Automated countOrdered By: Manuel Mccartney on 02-20-2024 Neutrophils (Bld) [#/Vol] 8.3 10*3/uL High 1.8-7.7 [facility] Comment on above: Performed By: #### L IPASE, TSH3, BMP, PTT, CBC, HS TROP, BNP, CK, HEPATIC, PT #### [address] No Panel InformationOrdered By: Manuel Mccartney on 02-20-2024 Estimated GFR (CKD-EPI) > 60.0 mL/Min [facility] Creatinine Clearance (Chem 137.62 [facility] Nucleated erythrocytes [Pres ence] in Blood by Automated countOrdered By: Manuel Mccartney on 02-20-2024 Nucleated RBC Auto Ql (Bld) 0.1 /100{WBC} 0-0.5 [facility] Partial Thromboplastin Timeo n 02-20-2024 aPTT Coag (Bld) [Time] 30.0 s Normal 25.1-36.5 [facility] Comment on above: Result Comment: A he matocrit value greater than 55% may lead to inaccurate results in coagulation testing. Patients having hematocrit values >55% require a special collection tube for coagulation studies. Please contact the laboratory at [phone] for redraw instructions. PERFORMED BY: [place] [address] PATHOLOGIST SUPERVISOR [employer] NINA KEATING M.D. Performed By: #### L IPASE, TSH3, BMP, PTT, CBC, HS TROP, BNP, CK, HEPATIC, PT #### [address] [address] [place] Platelet mean volume [Entiti c volume] in Blood by Automated countOrdered By: Manuel Mccartney on 02-20-2024 Platelet mean volume (Bld) [Entitic vol] 9.3 fL Normal 6.6-10.1 [facility] Comment on above: Performed By: #### L IPASE, TSH3, BMP, PTT, CBC, HS TROP, BNP, CK, HEPATIC, PT #### [facility] [address] [place] [address] Platelets [#/volume] in Bloo d by Automated countOrdered By: Manuel Mccartney on 02-20-2024 Platelets (Bld) [#/Vol] 217 10*3/uL Normal 150-450 [facility] Comment on above: Performed By: #### L IPASE, TSH3, BMP, PTT, CBC, HS TROP, BNP, CK, HEPATIC, PT #### [facility] [address] [place] [address] Potassium [Moles/volume] in Serum or PlasmaOrdered By: Manuel Mccartney on 02-20-2024 Potassium [Moles/Vol] 3.8 mmol/L Normal 3.5-5.1 [facility] Comment on above: Performed By: #### L IPASE, TSH3, BMP, PTT, CBC, HS TROP, BNP, CK, HEPATIC, PT #### [facility] [address] [place] [address] Performed By: #### L IPASE, TSH3, BMP, PTT, CBC, HS TROP, BNP, CK, HEPATIC, PT ####[facility] [id number] [place] [address] Protein [Mass/volume] in Ser um or PlasmaOrdered By: Manuel Mccartney on 02-20-2024 Protein [Mass/Vol] 8.3 g/dL Normal 6.4-8.9 [facility] Comment on above: Performed By: #### L IPASE, TSH3, BMP, PTT, CBC, HS TROP, BNP, CK, HEPATIC, PT ####[facility] [id number] [place] [address] Prothrombin time (PT)Ordered By: Manuel Mccartney on 02-20-2024 PT Coag (PPP) [Time] 10.9 s Normal 9.0-12.[address] [facility] Comment on above: A hematocrit value g reater than 55% may lead to inaccurate results in coagulation testing. Patients having hematocrit values >55% require a special collection tube for coagulation studies. Please contact the laboratory at [phone] for redraw instructions. Result Comment: A he matocrit value greater than 55% may lead to inaccurate results in coagulation testing. Patients having hematocrit values >55% require a special collection tube for coagulation studies. Please contact the laboratory at [phone] for redraw instructions. Performed By: #### L IPASE, TSH3, BMP, PTT, CBC, HS TROP, BNP, CK, HEPATIC, PT #### [facility] [address] [place] [address] Serum globulin measurement b y calculation (mass/volume)Ordered By: Manuel Mccartney on 02-20-2024 Globulin (S) [Mass/Vol] 3.3 g/dL [facility] Comment on above: Performed By: #### L IPASE, TSH3, BMP, PTT, CBC, HS TROP, BNP, CK, HEPATIC, PT ####[address] Serum or plasma albumin/glob ulin mass ratioOrdered By: Manuel Mccartney on 02-20-2024 Albumin/Globulin [Mass ratio] 1.5 {ratio} [facility] Comment on above: Performed By: #### L IPASE, TSH3, BMP, PTT, CBC, HS TROP, BNP, CK, HEPATIC, PT ####[facility] [id number] [address] Serum or plasma anion gap de terminationOrdered By: Manuel Mccartney on 02-20-2024 Anion gap [Moles/Vol] 12.3 mmol/L Normal 6.0-15.0 [facility] Comment on above: Performed By: #### L IPASE, TSH3, BMP, PTT, CBC, HS TROP, BNP, CK, HEPATIC, PT #### [facility] [address] Performed By: #### L IPASE, TSH3, BMP, PTT, CBC, HS TROP, BNP, CK, HEPATIC, PT ####[place] [address] [address] Serum or plasma non-glucuron idated bilirubin measurement (mass/volume)Ordered By: Manuel Mccartney on 02-20-2024 Bilirubin.indirect [Mass/Vol] 0.5 mg/dL [facility] Sodium [Moles/volume] in Ser um or PlasmaOrdered By: Manuel Mccartney on 02-20-2024 Sodium [Moles/Vol] 139 mmol/L Normal 136-145 [facility] Comment on above: Performed By: #### L IPASE, TSH3, BMP, PTT, CBC, HS TROP, BNP, CK, HEPATIC, PT #### [facility] [address] [place] [address] Performed By: #### L IPASE, TSH3, BMP, PTT, CBC, HS TROP, BNP, CK, HEPATIC, PT ####[place] [address] [address] Thyrotropin [Units/volume] i n Serum or PlasmaOrdered By: Manuel Mccartney on 02-20-2024 TSH Qn 2.00 m[IU]/L Normal 0.45-5.33 [facility] Comment on above: Result Comment: PERF ORMED BY: [place] [address] PATHOLOGIST SUPERVISOR [employer] NINA KEATING M.D. Performed By: #### L IPASE, TSH3, BMP, PTT, CBC, HS TROP, BNP, CK, HEPATIC, PT ####[address] Troponin I High Sensitivityo n 02-20-2024 Troponin I High Sensitivity < 2.3 Normal 0.0-20.0 [facility] Comment on above: Result Comment: PERF ORMED BY: [place] [address] PATHOLOGIST SUPERVISOR FILTER [employer]SEMBL[employer] NINA KEATING M.D. Performed By: #### L IPASE, TSH3, BMP, PTT, CBC, HS TROP, BNP, CK, HEPATIC, PT #### [facility] [address] [place] [address] Troponin I.cardiac [Mass/vol ume] in Serum or Plasma by Detection limit <= 0.01 ng/Ordered By: Manuel Mccartney on 02-20-2024 Troponin I.cardiac DL <= 0.01 ng/mL [Mass/Vol] < 2.3 pg/mL 0.0-20.0 [facility] Urea nitrogen [Mass/volume] in Serum or PlasmaOrdered By: Manuel Mccartney on 02-20-2024 Urea nitrogen [Mass/Vol] 14 mg/dL Normal 7-25 [facility] Comment on above: Performed By: #### L IPASE, TSH3, BMP, PTT, CBC, HS TROP, BNP, CK, HEPATIC, PT #### [facility] [address] [place] [address] Performed By: #### L IPASE, TSH3, BMP, PTT, CBC, HS TROP, BNP, CK, HEPATIC, PT ####[facility] [id number] [address] XR chest 2V*on 02-20-2024 XR chest 2V* [facility] [place] [address] XRay Report Signed Patient: Dustin Harden MR#: [id number] : 1995 Acct:[id number] Age/Sex: 29 / M ADM Date: 02/20/24 [...] Odalis Austin M.D.02/20/2024 3:53 PM Dictation Location: [place] [address] Transcribed By: [facility] 02/20/241552 Dictated By: Odalis Austin MD 02/20/241551 Signed By: 02/20/241552 Normal [facility]15 SARS-CoV-2 (COVID-19) RNA KOSTAS+probe Ql (Unsp spec) Not detected Normal NOT DETECTED [facility] Comment on above: Result Comment: This test is not yet approved or cleared by the [place] FDA. When there are no FDA-approved or cleared tests available, and other criteria are met, FDA can make tests available under an emergency access mechanism called an Emergency Use Authorization (EUA). The EUA for this test is supported by the Signals Analyst of Health and Human Service's (HHS's) declaration [...] consistent with SARS-CoV-2. Performed By: #### [facility] #### [facility] [address] [place] [address] Dr. Kirk Matson Vital Signs Date Time Vital Sign Value Performing Clinician Lisai sathya 03-26-2024 09:43-0400 Heart rate 53 /min MD Mark Spaulding Work Phone: [facility] 03-26-2024 09:43-0400 Respiratory rate 16 /min MD Mark Spaulding Work Phone: [facility] 03-26-2024 09:43-0400 SaO2% (BldA) [Mass fraction] 97 % MD Mark Spaulding Work Phone: [facility] 03-26-2024 07:58-0400 Body height 175.26 cm MD Mark Spaulding Work Phone: [facility] 03-26-2024 07:58-0400 Body temperature 98.4 [degF] MD Mark Spaulding Work Phone: [facility] 03-26-2024 07:58-0400 Body weight 92.2 kg MD Mark Spaulding Work Phone: [facility] 03-26-2024 07:58-0400 Diastolic blood pressure 90 mm[Hg] MD Mark Spaulding Work Phone: [facility] 03-26-2024 07:58-0400 Systolic blood pressure 134 mm[Hg] MD Mark Spualding Work Phone: [facility] 02-20-2024 17:44-0400 Diastolic blood pressure 79 mm[Hg] MD Mark Spaulding Work Phone: [facility] 02-20-2024 17:44-0400 Heart rate 80 /min MD Mark Spaulding Work Phone: [facility] 02-20-2024 17:44-0400 Respiratory rate 20 /min MD Mark Spaulding Work Phone: [facility] 02-20-2024 17:44-0400 SaO2% (BldA) [Mass fraction] 97 % MD Mark Spaulding Work Phone: [facility] 02-20-2024 17:44-0400 Systolic blood pressure 137 mm[Hg] MD Mark Spaulding Work Phone: [facility] 02-20-2024 14:00-0400 Body height 175.26 cm MD Mark Spaulding Work Phone: [facility] 02-20-2024 14:00-0400 Body temperature 97.7 [degF] MD Mark Spaulding Work Phone: [facility] 02-20-2024 14:00-0400 Body weight 94.8 kg MD Mark Spaulding Work Phone: [facility] Encounters Encounter Date Encounter Type Care Provider Facility Start: 05-12-2024 End: 05-12-2024 ambulatory MD Mark Spaulding Work Phone: [facility] Work Phone: Start: 05-12-2024 End: 05-12-2024 Departed Referred MD Mrak Spaulding Work Phone: [facility] Start: 03-26-2024 End: 03-26-2024 Emergency department patient visit MD Mark Spaulding Work Phone: [facility] Work Phone: Start: 02-20-2024 End: 02-20-2024 Emergency department patient visit MD Mark Spaulding Work Phone: [facility] Work Phone: Start: 10-03-2021 End: 10-03-[address] JONATHON VALERO Facility:[facility] Start: 05-11-2021 End: 05-11-[address] DOCTOR HEALY Facility:[facility] Procedures Date Procedure Procedure Detail Performing Clinician Start: 03-26-2024 Plain chest X-ray MD Brown Work Phone: Start: 02-20-2024 Plain chest X-ray MD Brown Work Phone: Plan of Treatment Date Care Activity Detail Author Patient Education [facility] Work Phone: Patient referral [facility] Work Phone: Payers Date Payer Category Payer Medicaid [id number] 28 [id number] 2024 Medicaid [id number] 75 [id number] 2024 Self-pay [id number] 1995 Unknown [id number] [id number] [id number] 1995 Unknown [id number] 2.16.84 [id number] 1959 Unknown [id number] Unknown [id number] 2.16.8 [id number] Unknown [id number] 2.16.8 [id number] Unknown [id number] 2.16.8 [id number] Social History Date Type Detail Facility Start: 02-20-2024 End: 03-26-2024 Tobacco smoking status IDIS Smoker (finding) [facility] Start: 1995 Sex Assigned At Male F [facility] Evaluation note Note Date & Type Note Facility Evaluation note No assessment information availa ble [facility] Work Phone: Summary Purpose Family History No [...] pital DATE CREATED AUTHOR AUTHOR'S ORGANIZ ATION 11/05/2024 [facility] y[facility] Care Teams (unrecognized sec tion [...] Team Status: Inactive Member Role Status Dates Hussein Curiel Attending Provider Active Start: May 12, [...] BE BASED ON THE PRIMARY CLINICAL RECORDS. [employer] provides no warranty or guarantee of the accuracy or completeness of information in this document.
--- OUTSIDE RECORDS SUMMARY | 2025-07-18 21:18 | XMS_ITS | Patient Health Record ---
Author Organization [facility] Address [address] [place] [address] Care Team Providers Care Metal Reed Tuner Name Role Phone Mark Spaulding Primary Care Provider Hussein Tavares Unavailable [phone] Allergies No Known Allergies Reason For Referral No Information Medications Medication SIG (Take, Route, Frequency, Duration) Notes Start Date End Date Status famotidine Active metoprolol Active Social History Tobacco Use: Social History Observation Description Date Details (start date - stop date) Unknown AUDIT-C (Standard) Question Answer Notes Did you have a drink contain ing alcohol in the past year? Yes How often did you have six o r more drinks on one occasion in the past year? Never (0 point) How many drinks did you have on a typical day when you were drinking in the past year? 5 or 6 drinks (2 points) How often did you have a dri nk containing alcohol in the past year? 2 to 4 times a month (2 points) Points 4 Interpretation Positive Tobacco Control (Standard) Question Answer Notes Tobacco use: Uses tobacco in other forms Additional Findings: Tobacco user e-cigarette Problems Problem Type SNOMED Code ICD Code Onset Dates Problem Status W/U Status Risk Notes Problem 070100430 Finger mass, left (R22.32) Active confirmed Plan Of Treatment Pending Test Test Name Order Date Chest Xray 2v 04/28/2024 CBC with diff, BMP, EKG 04/28/2024 SCC- FINGER 3 VIEW LEFT [id number] 04/28/2024 Insurance Providers Payer Name Payer Address Payer Phone Subscriber Number Group Number Insured Name Patient Relationship to Insured Coverage Start Date Coverage End Date [employer] [address] [place] [phone] [id number] RON WATSON Self - patient is the insured Medical (General) History Surgical History Surgery Date(Month/Year) Left index finger mass excision 05/12/20 24
--- NOTE | 2025-07-18 21:19 | PC.NURSE ---
Swelling present right hand, laceration to 4th finger. Hand soaking in Hibicleanse solution.
--- NOTE | 2025-07-18 21:21 | XR_ITS ---
The [address] [address] Patient Name: RON WATSON MRN: [id number] date: 1995 Sex: M Assigned Patient Location: ED.MAIN Current Patient Location: Accession/Order Number: [id number] Exam Date: 07/18/2025 21:20 Report Date: 07/19/2025 08:22 At the request of: CHARLI CISNEROS MD Procedure: XR hand RT min 3V RIGHT HAND - 3 views REASON FOR EXAM: Smashed right ring finger in door. COMPARISON: None FINDINGS: Tuft fracture distal phalanx fourth digit. There is associated soft tissue swelling. XR/XR hand RT min 3V IMPRESSION: TUFT FRACTURE DISTAL PHALANX FOURTH DIGIT. Impression dictated by: Gallo Urban Jr., D.OLeroy 07/19/2025 8:22 AM Dictation Location: [facility] Electronically authenticated by: [id number] Y Date: 07/19/2025 08:22
[2025-07-18] MEDS: LIDOCAINE HCL 1% 100 MG/10 ML MDV INJ (21:28)
--- NOTE | 2025-07-18 21:53 | ED.GENADUL1 ---
HPI HPI - General Adult General Chief complaint: Extremity Injury, Upper Stated complaint: SLAMMED CAR DOOR WITH HAND IN IT Time Seen by Provider: 07/18/25 21:16 Source: patient Mode of arrival: walk-in History of Present Illness HPI narrative: 30-year-old male presented for an injury to his right fourth finger. He smashed in a car door accidentally just before coming into the emergency department. The car door also hit him on his face below his right eye and he sustained a superficial laceration there as well. He was drinking alcohol earlier today. No LOC or vomiting or any other injury. It has been more than 10 years since he has had a tetanus shot. Related Data Previous Rx's ?Medication ?Instructions ?Recorded cephalexin 500 mg capsule 500 mg PO TID 7 days #21 caps 07/18/25 Allergies Allergy/AdvReac Type Severity Reaction Status Date / Time No Known Drug Allergies Allergy Verified 07/18/25 21:09 Opioid HPI Opioid Management Most Recent Opioid Data: Last Pain Scale 10 09/07/23, 14:41 Review of Systems ROS Narrative A ten point review of systems is negative except as noted above. PFSH PFSH Medical History (Updated 07/18/25 @ 21:51 by Philippe Thorpe MD) Heart rate fast ?R00.0 - Tachycardia, unspecified (ICD-10) GERD (gastroesophageal reflux disease) ?K21.9 - Gastro-esophageal reflux disease without esophagitis (ICD-10) Finger mass, left ?R22.32 - Localized swelling, mass and lump, left upper limb (ICD-10) Surgical History (Updated 05/12/24 @ 12:31 by Samantha Vallejo RN) H/O tooth extraction ?K08.409 - Partial loss of teeth, unspecified cause, unspecified class (ICD-10) Family History (Updated 05/05/24 @ 09:26 by Mary Santillan, BINTA) Other Family history of diabetes mellitus Family history of hypertension Family history of stroke Social History (Updated 05/05/24 @ 09:25 by Mary Santillan, BINTA) Within the past year, how often did you have a drink containing alcohol: 2-4 times a month Do you use any of these nicotine containing products: vaping products Second hand tobacco smoke exposure: No Non-prescribed substance use: denies use Previous occupational history: [employer] Highest level of school completed/degree received: 10th grade Little interest or pleasure in doing things: not at all Feeling down, depressed, or hopeless: not at all Exam Narrative Exam Narrative: Nurses note and vital signs reviewed and patient is not hypoxic. General:The patient appears well and in no apparent distress.Patient is resting comfortably on cart. Skin:Warm, dry, no pallor noted.There is no rash noted. Head:Normocephalic, atraumatic Eye: Normal conjunctiva, no drainage Ears, Nose, Mouth, and Throat: oral mucosa is moist. Nares patent. Cardiovascular:Regular Rate and Rhythm Respiratory:Patient is in no distress, no accessory muscle use, lungs are clear to auscultation, no wheezing, rales or rhonchi Back:non-tender GI: Soft and nontender Musculoskeletal: There is a 2 cm laceration on the distal aspect of his right fourth finger, on the finger pad. DIP has full range of motion. No subungual hematoma. Neurological:A&O, normal speech Psychiatric:Cooperative Constitutional Vital Signs, click to edit/add: Last Vital Signs Temp 98.4 F 07/18/25 21:10 Pulse 98 H 07/18/25 21:10 Resp 20 07/18/25 21:10 BP 126/74 07/18/25 21:10 Pulse Ox 93 L 07/18/25 21:10 O2 Del Method Room Air 07/18/25 21:10 Course Vital Signs Vital signs: Vital Signs Temperature 98.4 F 07/18/25 21:10 Pulse Rate 98 H 07/18/25 21:10 Respiratory Rate 20 07/18/25 21:10 Blood Pressure 126/74 07/18/25 21:10 Pulse Oximetry 93 L 07/18/25 21:10 Oxygen Delivery Method Room Air 07/18/25 21:10 Temperature 98.4 F 07/18/25 21:10 Pulse Rate 98 H 07/18/25 21:10 Respiratory Rate 20 07/18/25 21:10 Blood Pressure 126/74 07/18/25 21:10 Pulse Oximetry 93 L 07/18/25 21:10 Oxygen Delivery Method Room Air 07/18/25 21:10 Medical Decision Making MDM Narrative Medical decision making narrative: The following procedure was performed by me. Finger block was applied with 1% lidocaine without epinephrine resulting in complete skin anesthesia. The area was prepped with Betadine x 3 and draped sterilely and explored for foreign bodies and none were found. The wound was then closed with five 5-0 Ethilon sutures resulting in good skin reapproximation and hemostasis. The patient has an open fracture and he has a preferred orthopedist with whom he will follow-up. Tetanus status was also updated. Treatment diagnosis and follow-up were discussed with the patient. He was prescribed Keflex. Differential Diagnosis Differential Diagnosis: Laceration, fracture Imaging Data Right hand x-ray: My impression: Distal phalangeal fracture, fourth digit Discharge Plan Discharge Chief Complaint: Extremity Injury, Upper Clinical Impression: Open fracture of finger, distal phalanx, Finger laceration Patient Disposition: Home, Self-Care Time of Disposition Decision: 21:51 Condition: Good Mode of Transportation: Private Vehicle Prescriptions / Home Meds: New cephalexin 500 mg capsule 500 mg PO TID 7 Days Qty: 21 0RF Print Language: [place] Citizen Instructions: Laceration (ED), Finger Fracture (ED) Additional Instructions: Follow-up with Dr. Curiel. Leave tube gauze dressing on for 48 hours. Remove and apply bandage and apply splint and use until seen. Referrals: Mark Spaulding MD [Primary Care Provider, Family Practice] - 1 week
--- NOTE | 2025-07-18 22:03 | PC.NURSE ---
Tube guaze applied to right finger as ordered. Splint sent home for use after wearing tube quaze for 48 hours. Suture care and splint care reviewed with patient.
[2025-07-18] MEDS: DIPHTH,PERTUSS(ACELL),TET VAC 0.5 ML SYRINGE IM (22:06)
--- NOTE | 2025-07-18 22:13 | PC.NURSE ---
Laceration under right eye cleansed with NS and d3 1/8 inch steri strips applied.
== END 2025-07-18 22:15 | disposition home or self-care (01) ==
PROVIDERS: Emergency Provider Emergency Medicine; PCP Family Medicine
DX: S62.634B Displaced fracture of distal phalanx of right ring finger, initial encounter for open fracture (principal); S01.81XA Laceration without foreign body of other part of head, initial encounter; W22.8XXA Striking against or struck by other objects, initial encounter; F17.290 Nicotine dependence, other tobacco product, uncomplicated; Z23 Encounter for immunization; W23.0XXA Caught, crushed, jammed, or pinched between moving objects, initial encounter
CPT/HCPCS: 12001; 73130; 90471; 90715; 99284